=== PATIENT | male | born 1990 ===

== ENCOUNTER 2021-06-08 14:57 | Outpatient (REF) | payer OTHER, SELFPAY ==
[2021-06-08 16:11] LABS: Appearance Urine CLEAR; Color Urine YELLOW; Glucose Urine UA NEG (NEG); Leukocyte Esterase Urine NEG (NEG); Nitrite Urine NEG (NEG); Specific Gravity - Urine 1.015 (1.005-1.025); Urine Blood NEG (NEG); Urine Ketones NEG (NEG); Urine Protein NEG (NEG-TRACE)
== END 2021-06-08 14:58 | disposition home or self-care (01) ==
LOC: HO.LAB 14:57
PROVIDERS: Visit Provider Physician Assistant Medical
DX: F33.9 Major depressive disorder, recurrent, unspecified (principal)
CPT/HCPCS: 81003

== ENCOUNTER 2021-06-17 17:11 | Emergency (ER) | payer OTHER, SELFPAY ==
[2021-06-17 19:21] VITALS: BP 122/57; PULSE 68; RESP 16; TEMP 36.7; O2SAT 97; BMI 26.4
[2021-06-17 19:46] LABS: Appearance Urine CLEAR; Color Urine YELLOW; Glucose Urine UA NEG (NEG); Leukocyte Esterase Urine NEG (NEG); Nitrite Urine NEG (NEG); PH 6.5 (5.0-8.0); Specific Gravity - Urine 1.015 (1.005-1.025); Urine Blood NEG (NEG); Urine Ketones NEG (NEG); Urine Protein NEG (NEG-TRACE)
[2021-06-17 19:53] LABS: MANUAL DIFF FLAG NO
[2021-06-17 19:55] LABS: Imm Gran Abs Auto 0.04 X10*3/uL (0.00-0.03); Imm Gran Pct Auto 0.4 % (0.0-0.4); Mean Platelet Volume 9.7 fL (9.4-12.4); Red Cell Distribution Width 11.9 % (11.0-16.0)
[2021-06-17 19:58] LABS: Mucus Urine 1+ /LPF; RBC Urine 0 /HPF (0); Squamous Epithelial Cell Urine 1+ /LPF; WBC Urine 0 /HPF (0-4)
[2021-06-17 20:10] LABS: Estimated Glomerular Filt Rate > 60
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
--- NOTE | 2021-06-18 01:03 | MHC.CARE ---
Pt was evaluated by the CARE team. Pt krysten remain the night in the ED. Disposition is for an F/U due to the inability to gather pertinent crisis hx of pt. CARE team will follow up in the am.
--- NOTE | 2021-06-18 06:37 | PC.NURSE ---
Patient slept through the night, no distress observed/reported, behavior appropriate, medication rec completed/MAR active, patient got assessed by care team last, Disposition is F/U in the morning, patient is trans male to female, VSS, will continue to monitor.
[2021-06-18 09:32] VITALS: BP 125/71; PULSE 95; TEMP 36.8; O2SAT 97
[2021-06-18 09:36] VITALS: BP 125/71; PULSE 95
[2021-06-18] MEDS: Benztropine Mesylate 1 MG TABLET PO (09:36)
[2021-06-18] MEDS: Omeprazole 20 MG CAPSULE.DR PO (09:36)
[2021-06-18] MEDS: Spironolactone 25 MG TABLET 100 MG PO (09:36)
[2021-06-18] MEDS: Propranolol HCL 20 MG TABLET PO (09:36)
[2021-06-18] MEDS: estradioL 0.5 MG TABLET 2 MG PO (09:36)
[2021-06-18] MEDS: Gabapentin 400 MG CAPSULE 800 MG PO (09:37)
[2021-06-18] MEDS: Buprenorphine/Naloxone 8/2 mg FILM 1 FILM SUBLINGUAL (09:37)
[2021-06-18] MEDS: buPROPion HCl XL 150 MG TAB.ER.24H 450 MG PO (09:58)
[2021-08-25 11:08] LABS: COVID-19 Test Negative (Negative)
[2021-08-25 11:16] LABS: Barbiturates, Urine Not Detected (Not Detect); Opiate Screen Urine Not Detected (Not Detect)
[2021-08-25 11:17] LABS: Amphetamine Screen Urine Not Detected (Not Detect); Benzodiazepines Screen Urine Not Detected (Not Detect); Cannabinoid Screen Urine Not Detected (Not Detect); Cocaine Screen Urine Not Detected (Not Detect); Fentanyl, urine POSITIVE (Not Detect); Phencyclidine Screen Urine Not Detected (Not Detect)
[2021-08-25 11:20] LABS: Hematocrit 39.4 % (42-52); Red Blood Count 4.65 X10*6/uL (4.60-5.80)
[2021-08-25 11:24] LABS: White Blood Count 9.5 X10*3/uL (4.8-10.8)
[2021-08-25 11:25] LABS: Mean Corpuscular HGB Conc 35.5 g/dl (31.0-36.0); Mean Corpuscular Hemoglobin 30.1 pg (27.0-33.0); Mean Corpuscular Volume 84.7 fL (80-98); Neutrophils Percent Auto 61.8 % (45-73); Platelet Count 261 X10*3/uL (160-400)
[2021-08-25 11:26] LABS: Basophils Percent Auto 0.4 % (0-2); Eosinophils Percent Auto 7.7 % (0-4); Lymphocytes Percent Auto 21.5 % (20-40); Monocytes Percent Auto 8.2 % (2-11)
[2021-08-25 11:29] LABS: Neutrophils Absolute Auto 5.8 X10*3/uL (2.0-8.3)
[2021-08-25 11:30] LABS: Monocytes Absolute Auto 0.8 X10*3/uL (0.1-1.2)
[2021-08-25 11:31] LABS: Eosinophils Absolute Auto 0.7 X10*3/uL (0.0-0.4)
[2021-08-25 11:33] LABS: Sodium 138 mmol/L (135-145)
[2021-08-25 11:34] LABS: Potassium 4.6 mmol/L (3.3-5.1)
[2021-08-25 11:35] LABS: Chloride 105 mmol/L (96-108)
[2021-08-25 11:36] LABS: Anion Gap 11 (12-20); Carbon Dioxide 27 mmol/L (22-29)
[2021-08-25 11:37] LABS: Blood Urea Nitrogen 17 mg/dL (9-16)
[2021-08-25 11:39] LABS: Creatinine Clr Calc Pharmacy 115.2; Glucose Random 100 mg/dL (60-115)
[2021-08-25 11:40] LABS: Calcium 9.1 mg/dL (8.4-10.2)
[2021-08-25 11:41] LABS: Acetaminophen LAB < 1 mcg/mL (<30); Salicylate < 5.0 mg/dL (15-30)
[2021-08-25 12:13] LABS: Ethanol < 10 mg/dL
== END 2021-06-18 11:03 | disposition home or self-care (01) ==
PROVIDERS: Emergency Provider Internal Medicine
DX: F33.2 Major depressive disorder, recurrent severe without psychotic features (principal); Z79.899 Other long term (current) drug therapy; Z20.822 Contact with and (suspected) exposure to COVID-19
CPT/HCPCS: 36415; 80048; 80143; 80179; 80307; 81001; 82077; 85025; 87635; 99284; 99285

== ENCOUNTER 2022-07-06 09:01 | Outpatient (REF) | payer OTHER, SELFPAY ==
[2022-07-06 11:43] LABS: Hematocrit 42.6 % (42.0-52.0); Hemoglobin 14.8 g/dl (14.0-18.0); Mean Corpuscular HGB Conc 34.7 g/dl (31.0-36.0); Mean Corpuscular Hemoglobin 30.2 pg (27.0-33.0); Mean Corpuscular Volume 86.9 fL (80.0-98.0); Mean Platelet Volume 10.5 fL (9.4-12.4); Platelet Count 290 X10*3/uL (160-400); Red Cell Distribution Width 11.8 % (11.0-16.0); White Blood Count 9.9 X10*3/uL (4.8-10.8)
[2022-07-06 12:00] LABS: Alanine Aminotransferase 16 U/L (0-40); Albumin Level 4.3 g/dL (3.5-5.0); Alkaline Phosphatase 54 U/L (39-117); Anion Gap 15 (12-20); Aspartate Amino Transferase 21 U/L (5-37); Bilirubin Total 0.3 mg/dL (0.0-1.0); Blood Urea Nitrogen 13 mg/dL (9-16); Calcium 9.5 mg/dL (8.4-10.2); Carbon Dioxide 26 mmol/L (22-29); Chloride 103 mmol/L (96-108); Cholesterol 186 mg/dL; Estimated Glomerular Filt Rate > 60; Glucose Fasting 89 mg/dL (60-99); HDL Cholesterol 41 mg/dL; LDL Cholesterol Calculated 115 mg/dl; Phosphorus 2.6 mg/dL (2.7-4.5); Potassium 4.8 mmol/L (3.3-5.1); Sodium 139 mmol/L (135-145); Total Protein 7.4 g/dL (6.5-8.0); Triglycerides 154 mg/dL
[2022-07-06 12:23] LABS: TSH reflex Free T4 1.64 uIU/mL (0.32-4.0)
[2022-07-06 12:49] LABS: Folate > 20.0 ng/mL (> or = 4.0); Vitamin B12 1238 pg/mL (200-900)
== END 2022-07-06 09:02 | disposition home or self-care (01) ==
LOC: HO.WFDLDS 09:01
PROVIDERS: Visit Provider Hospitalist
DX: Z00.00 Encounter for general adult medical examination without abnormal findings (principal); K21.9 Gastro-esophageal reflux disease without esophagitis; D64.9 Anemia, unspecified
CPT/HCPCS: 36415; 80053; 80061; 82607; 82746; 83735; 84100; 84443; 85027

== ENCOUNTER 2022-12-11 05:48 | Emergency (ER) | payer OTHER, SELFPAY ==
--- NOTE | ~2022-12-11 | CT_ITS ---
EXAMINATION: CT HEAD WITHOUT CONTRAST CLINICAL INFORMATION: Headache. COMPARISON: None available. TECHNIQUE: Contiguous axial imaging was performed from the skull base to vertex without intravenous administration of contrast. This CT examination was performed using dose optimization techniques as appropriate, variously including the following: *Automated exposure control. *Adjustment of mA and/or kV according to patient size (this includes techniques or standardized protocols for targeted exams where dose is matched to indication/reason for exam; i.e. extremities or head). *Use of iterative reconstruction technique. DLP: 674 mGy-cm FINDINGS: There is no evidence of acute intracranial hemorrhage or edematous territorial infarction. [place]-white matter differentiation is preserved. There is no abnormal attenuation within the brain parenchyma. The ventricles are normal in morphology and size. No evidence for obstructive hydrocephalus. No abnormal mass effect or midline shift. No extra-axial fluid collections. No acute soft tissue or osseous abnormalities. Prominent opacification of the left frontal and maxillary sinuses as well as the left anterior ethmoid air cells. Mild mucosal thickening of the remaining paranasal sinuses. The mastoid air cells and middle ear cavities are clear. CT/CT head/brain wo IV con IMPRESSION: 1. No evidence of acute intracranial hemorrhage or edematous territorial infarction. 2. Prominent left-sided frontal and maxillary sinus disease.
[2022-12-11 05:54] VITALS: BP 133/60; PULSE 85; RESP 16; TEMP 36.4; O2SAT 94; BMI 27.3
[2022-12-11 07:09] VITALS: BP 102/58; PULSE 85; RESP 18; TEMP 36.4; O2SAT 95
--- NOTE | 2022-12-11 07:21 | ED_ITS ---
HPI - General Adult General Chief complaint: General Medical Stated complaint: Face Numbness/Confusion Time Seen by Provider: 12/11/22 07:21 Source: patient Mode of arrival: ambulatory Limitations: no limitations History of Present Illness HPI narrative: This is a 32 years old reason patient with history of major depression , anxiety, transitioning male to female, presented to emergency room complaining of headache, bilateral financial numbness. Symptoms been ongoing for month Onset (ago): month(s) (1) Location: head Radiation: non-radiation Severity: moderate Quality: burning Pain Consistency: constant Relieving factors: none Associated symptoms: confusion Related Data Home Medications Medication Instructions Recorded Confirmed benztropine 1 mg tablet 1 tab PO BID 06/17/21 07/13/22 buprenorphine 4 mg-naloxone 1 mg 1 strip sublingual DAILY@1300 06/17/21 07/13/22 sublingual film (Suboxone) buprenorphine 8 mg-naloxone 2 mg 1 strip sublingual QAM 06/17/21 07/13/22 sublingual film (Suboxone) bupropion HCl 150 mg 24 hr tablet, 450 mg PO QAM 06/17/21 07/13/22 extended release clonazepam 1 mg tablet 1 mg PO DAILY PRN Anxiety 06/17/21 07/13/22 fluoxetine 40 mg capsule 60 mg PO QAM 06/17/21 07/13/22 haloperidol 5 mg tablet 1 tab PO TID PRN Agitation 06/17/21 07/13/22 loratadine 10 mg tablet 1 tab PO QAM 06/17/21 07/13/22 multivitamin with folic acid 400 1 tab PO QAM 06/17/21 07/13/22 mcg tablet (Tab-A-Josef) prazosin 5 mg capsule 2 cap PO BEDTIME 06/17/21 07/13/22 propranolol 20 mg tablet 1 tab PO BID 06/17/21 07/13/22 trazodone 100 mg tablet 2 tab PO BEDTIME PRN Insomnia 06/17/21 07/13/22 buprenorphine 2 mg-naloxone 0.5 mg 2 mg sublingual DAILY 07/13/22 07/13/22 sublingual film (Suboxone) docusate sodium 100 mg capsule 100 mg PO BID PRN constipation 07/13/22 07/13/22 melatonin 3 mg tablet 6 mg PO BEDTIME PRN insomnia 07/13/22 07/13/22 Previous Rx's Medication Instructions Recorded sodium chloride 0.65 % nasal spray 2 spray intranasal Q2H PRN dry 07/20/21 aerosol (Farley Saline) nasal passages 1 month #60 mL estradiol 2 mg tablet 2 mg PO TID #90 tabs 11/17/21 fluticasone propionate 50 2 spray intranasal DAILY #16 grams 11/30/21 mcg/actuation nasal spray,suspension omeprazole 20 mg capsule,delayed 20 mg PO DAILY #90 caps 02/15/22 release spironolactone 100 mg tablet 100 mg PO BID #60 tabs 04/28/22 amoxicillin 500 mg-potassium 1 tab PO Q12H #14 tabs 07/13/22 clavulanate 125 mg tablet (Augmentin) Allergies Allergy/AdvReac Type Severity Reaction Status Date / Time No Known Allergies Allergy Verified 07/13/22 10:05 Review of Systems ENT: Reports system reviewed and no additional complaints, except as doc umented Cardiovascular: Cardiovascular: Reports no additional cardiovascular complaints Gastrointestinal: Gastrointestinal: Reports no additional gastrointestinal complaints Psychiatric: Psychiatric: Reports anxiety [facility] Past Medical History [facility] Narrative: Depression/anxiety/ Surgical History H/O breast augmentation Social History Social History Housing: House Alcohol intake: current Alcohol intake frequency: holidays/special occasions only Patient Tobacco Use Status: Former Tobacco user Smoked in Last 30 Days: Yes e-Cigarette/Vaping Use: Never Used Second Hand Smoke Exposure: No Use of substances other than those prescribed or required for medical reasons: No Advance Directives: No Advance Directives Information Provided: No service: No Current occupational status: disabled Cognitive needs: No Hearing needs: No Vision needs: No Physical Exam ED Vital Signs: Vital Signs - 24 hr 12/11/22 05:54 12/11/22 07:09 12/11/22 08:22 Temperature 97.5 F 97.6 F 97.6 F Pulse Rate 85 85 71 Respiratory Rate 16 18 17 Blood Pressure 133/60 102/58 L 97/61 Pulse Oximetry 94 95 95 Oxygen Delivery Method Room Air Room Air Room Air 12/11/22 09:52 Temperature 97.6 F Pulse Rate 76 Respiratory Rate 18 Blood Pressure 105/56 L Pulse Oximetry 96 Oxygen Delivery Method Room Air BMI result Body Mass Index 27.3 Const General: cooperative Nutritional Appearance: well nourished Orientation/consciousness: patient oriented x3 Limitations: no limitations HENMT Head: Yes normal to inspection General nose exam: Normal external nose present Face and sinus: Yes normal facial exam Mouth: Normal oral and palatal mucosa present Teeth and gingiva: dentition normal Throat: Yes posterior oropharynx normal Neck Neck: Yes normal visual inspection, Yes full ROM and Yes no lymphadenopathy Chest Chest palpation & inspection: normal inspection of the chest Resp Effort & Inspection: normal respiratory effort and able to speak in complete sentences Auscultation: clear to auscultation bilaterally Cardio Jugular venous distension: no JVD Rate: regular rate Rhythm: regular rhythm GI Inspection: Yes normal to inspection Palpation (GI): Soft to palpation, not firm and nontender Auscultation: normal bowel sounds Skin General skin exam: no rashes or lesions noted, elasticity normal and turgor normal Lesions: no lesions Rashes: no rashes Neuro General: patient oriented x3 Cranial nerves: Yes CN's II-XII intact bilaterally Cognition (Neuro): normal cognition Medical Decision Making Medical Decision Making [facility] Narrative: 32 years old transgender male to female presented with headache facial numbness the picture is more consistent with anxiety the numbness is billateral will get any way I head CT and EKG and reassess Differential Diagnosis Differential Diagnoses: The differential diagnosis associated with the presentation includes Anxiety disorder/depression/CVA unlikely Lab Data [facility] Lab Attestation statement: I reviewed the patient's lab results. 12/11/22 07:42 12/11/22 07:42 Labs: Lab Results 12/11/22 12/11/22 Range/Units 07:42 07:42 WBC 6.4 (4.8-10.8) X10*3/uL RBC 4.07 L (4.60-5.80) X10*6/uL Hgb 12.0 L (14.0-18.0) g/dl Hct 34.5 L (42.0-52.0) % MCV 84.8 (80.0-98.0) fL MCH 29.5 (27.0-33.0) pg MCHC 34.8 (31.0-36.0) g/dl RDW 11.9 (11.0-16.0) % Plt Count 271 (160-400) X10*3/uL MPV 9.4 (9.4-12.4) fL Immature Gran % (Auto) 0.2 (0.0-0.4) % Neut % (Auto) 63.2 (45-73) % Lymph % (Auto) 23.2 (20-40) % [place] % (Auto) 9.8 (2-11) % Eos % (Auto) 3.3 (0-4) % Baso % (Auto) 0.3 (0-2) % Lymph # (Auto) 1.5 (1.2-4.9) X10*3/uL [place] # (Auto) 0.6 (0.1-1.2) X10*3/uL Eos # (Auto) 0.2 (0.0-0.4) X10*3/uL Baso # (Auto) 0.0 (0.0-0.2) X10*3/uL Abs Immat Gran (auto) 0.01 (0.00-0.03) X10*3/uL Absolute Neuts (auto) 4.1 (2.0-8.3) x10*3/uL Absolute Nucleated RBC 0.000 (0.0-0.012) X10*3/uL Nucleated RBC % (auto) 0.0 (0.0-0.2) /100WBC Sodium 141 (135-145) mmol/L Potassium 4.1 (3.3-5.1) mmol/L Chloride 107 (96-108) mmol/L Carbon Dioxide 28 (22-29) mmol/L Anion Gap 10 L (12-20) BUN 14 (9-16) mg/dL Creatinine 0.81 (0.5-1.4) mg/dL Estim Creat Clear Calc 145.2 Estimated GFR > 60 Random Glucose 117 H (60-115) mg/dL Calcium 8.9 D (8.4-10.2) mg/dL Total Bilirubin 0.4 (0.0-1.0) mg/dL AST 22 (5-37) U/L ALT 27 (0-40) U/L Alkaline Phosphatase 44 (39-117) U/L Total Protein 6.0 L (6.5-8.0) g/dL Albumin 3.6 (3.5-5.0) g/dL Independent Interpretation I performed an independent interpretation of an: EKG Interpretation: NSR 74 no ischemic changes Radiology Impression Discussion of test interpretation with radiology: I have reviewed the radiologist's reading. Radiologist Impression: s or head). *Use of iterative reconstruction technique. DLP: 674 mGy-cm FINDINGS: There is no evidence of acute intracranial hemorrhage or edematous territorial infarction. [place]-white matter differentiation is preserved. There is no abnormal attenuation within the brain parenchyma. The ventricles are normal in morphology and size. No evidence for obstructive hydrocephalus. No abnormal mass effect or midline shift. No extra-axial fluid collections. No acute soft tissue or osseous abnormalities. Prominent opacification of the left frontal and maxillary sinuses as well as the left anterior ethmoid air cells. Mild mucosal thickening of the remaining paranasal sinuses. The mastoid air cells and middle ear cavities are clear. ? CT/CT head/brain wo IV con IMPRESSION: 1.? No evidence of acute intracranial hemorrhage or edematous territorial infarction. 2.? Prominent left-sided frontal and maxillary sinus disease. ? Dictated By: Shemar Zarate DO Signed By: <Electronically signed by Shemar Zarate DO in OV> 12/11/22 1047 Discharge Plan Discharge Clinical Impression: Paresthesia Patient Disposition: Home, Self-Care Instructions: Paresthesia (ED) Additional Instructions: followu up with Your Primary Care Doctor return if worse Prescriptions: No Action estradiol 2 mg tablet 2 mg PO TID Qty: 90 8RF fluticasone propionate 50 mcg/actuation spray,suspension 2 spray intranasal DAILY Qty: 16 8RF omeprazole 20 mg capsule,delayed release(DR/EC) 20 mg PO DAILY Qty: 90 3RF spironolactone 100 mg tablet 100 mg PO BID Qty: 60 4RF haloperidol 5 mg tablet 1 tab PO TID PRN (Reason: Agitation) clonazepam 1 mg tablet 1 mg PO DAILY PRN (Reason: Anxiety) prazosin 5 mg capsule 2 cap PO BEDTIME benztropine 1 mg tablet 1 tab PO BID propranolol 20 mg tablet 1 tab PO BID loratadine 10 mg tablet 1 tab PO QAM multivitamin with folic acid [Tab-A-Josef] 400 mcg tablet 1 tab PO QAM buprenorphine-naloxone [Suboxone] 8-2 mg film 1 strip sublingual QAM buprenorphine-naloxone [Suboxone] 4-1 mg film 1 strip sublingual DAILY@1300 trazodone 100 mg tablet 2 tab PO BEDTIME PRN (Reason: Insomnia) bupropion HCl 150 mg tablet extended release 24 hr 450 mg PO QAM fluoxetine 40 mg capsule 60 mg PO QAM sodium chloride [Farley Saline] 0.65 % aerosol,spray 2 spray intranasal Q2H PRN (Reason: dry nasal passages) 30 Days Qty: 60 5RF docusate sodium 100 mg capsule 100 mg PO BID PRN (Reason: constipation) melatonin 3 mg tablet 6 mg PO BEDTIME PRN (Reason: insomnia) buprenorphine-naloxone [Suboxone] 2-0.5 mg film 2 mg sublingual DAILY amoxicillin-pot clavulanate [Augmentin] 500-125 mg tablet 1 tab PO Q12H Qty: 14 0RF Rx Instructions: take with food or milk and drink plenty of water Referrals: Physician,Unknown J [Primary Care Provider] - 3 days
--- NOTE | 2022-12-11 07:27 | ECG_ITS ---
Test Reason : chest pain Blood Pressure : / mmHG Vent. Rate : 074 BPM Atrial Rate : 074 BPM P-R Int : 174 ms QRS Dur : 086 ms QT Int : 416 ms P-R-T Axes : 052 070 041 degrees QTc Int : 461 ms Normal sinus rhythm Normal ECG No previous ECGs available Referred By: Albin Love Electronically Signed By:TRUNG PALMER
[2022-12-11 07:46] LABS: MANUAL DIFF FLAG NO
[2022-12-11 07:48] LABS: Basophils Percent Auto 0.3 % (0-2); Eosinophils Absolute Auto 0.2 X10*3/uL (0.0-0.4); Eosinophils Percent Auto 3.3 % (0-4); Hematocrit 34.5 % (42.0-52.0); Imm Gran Abs Auto 0.01 X10*3/uL (0.00-0.03); Imm Gran Pct Auto 0.2 % (0.0-0.4); Lymphocytes Absolute Auto 1.5 X10*3/uL (1.2-4.9); Lymphocytes Percent Auto 23.2 % (20-40); Mean Corpuscular HGB Conc 34.8 g/dl (31.0-36.0); Mean Corpuscular Hemoglobin 29.5 pg (27.0-33.0); Mean Corpuscular Volume 84.8 fL (80.0-98.0); Mean Platelet Volume 9.4 fL (9.4-12.4); Monocytes Absolute Auto 0.6 X10*3/uL (0.1-1.2); Monocytes Percent Auto 9.8 % (2-11); Neutrophils Absolute Auto 4.1 x10*3/uL (2.0-8.3); Neutrophils Percent Auto 63.2 % (45-73); Platelet Count 271 X10*3/uL (160-400); Red Blood Count 4.07 X10*6/uL (4.60-5.80); Red Cell Distribution Width 11.9 % (11.0-16.0); White Blood Count 6.4 X10*3/uL (4.8-10.8)
[2022-12-11 08:10] LABS: Alanine Aminotransferase 27 U/L (0-40); Albumin Level 3.6 g/dL (3.5-5.0); Alkaline Phosphatase 44 U/L (39-117); Anion Gap 10 (12-20); Aspartate Amino Transferase 22 U/L (5-37); Bilirubin Total 0.4 mg/dL (0.0-1.0); Blood Urea Nitrogen 14 mg/dL (9-16); Calcium 8.9 mg/dL (8.4-10.2); Carbon Dioxide 28 mmol/L (22-29); Chloride 107 mmol/L (96-108); Creatinine Clr Calc Pharmacy 145.2; Estimated Glomerular Filt Rate > 60; Glucose Random 117 mg/dL (60-115); Potassium 4.1 mmol/L (3.3-5.1); Sodium 141 mmol/L (135-145)
[2022-12-11 08:22] VITALS: BP 97/61; PULSE 71; RESP 17; TEMP 36.4; O2SAT 95
[2022-12-11 09:52] VITALS: BP 105/56; PULSE 76; RESP 18; TEMP 36.4; O2SAT 96
== END 2022-12-11 11:25 | disposition home or self-care (01) ==
PROVIDERS: Emergency Provider Emergency Medicine
DX: R20.2 Paresthesia of skin (principal); R20.0 Anesthesia of skin; F32.9 Major depressive disorder, single episode, unspecified; F41.9 Anxiety disorder, unspecified; F64.0 Transsexualism; F11.20 Opioid dependence, uncomplicated; Z79.899 Other long term (current) drug therapy
CPT/HCPCS: 36415; 70450; 80053; 85025; 93005; 99284; 99285

== ENCOUNTER 2022-12-17 17:11 | Inpatient (IN) | payer OTHER, SELFPAY ==
--- NOTE | ~2022-12-17 | XR_ITS ---
EXAMINATION: XR CHEST CLINICAL INFORMATION: Chest pain. COMPARISON: None available. TECHNIQUE: 2 views of the chest were obtained. FINDINGS: No significant abnormality is noted involving the heart, lungs, mediastinum, bony thorax or soft tissues. XR/XR chest 2V IMPRESSION: Unremarkable examination.
--- NOTE | 2022-12-17 17:12 | ECG_ITS ---
Test Reason : CHEST PAIN Blood Pressure : / mmHG Vent. Rate : 071 BPM Atrial Rate : 071 BPM P-R Int : 152 ms QRS Dur : 088 ms QT Int : 386 ms P-R-T Axes : 056 078 045 degrees QTc Int : 419 ms Normal sinus rhythm with sinus arrhythmia Normal ECG When compared with ECG of 11-DEC-2022 07:46, No significant change was found Referred By: Lesley Crump Electronically Signed By:Joe Dumont
[2022-12-17 17:22] VITALS: BP 119/71; BP 121/80; PULSE 81; PULSE 86; RESP 18; TEMP 36.8; O2SAT 96; O2SAT 98; BMI 25.9
[2022-12-17 18:01] VITALS: PULSE 82
--- NOTE | 2022-12-17 18:05 | ED_ITS ---
HPI - Chest Pain General Chief Complaint: Chest Pain <KYAW Moreno Last Filed: 12/17/22 21:00> Stated Complaint: chest pain <KYAW Moreno Last Filed: 12/17/22 21:00> Time Seen by Provider: 12/17/22 18:05 <KYAW Moreno Last Filed: 12/17/22 21:00> Source: patient and EMS <KYAW Moreno Last Filed: 12/17/22 21:00> Mode of arrival: EMS <KYAW Moreno Last Filed: 12/17/22 21:00> Limitations: no limitations <KYAW Moreno Last Filed: 12/17/22 21:00> History of Present Illness HPI narrative: Patient is a 32 year old assigned male at , now female, with a history of anxiety and MDD presenting to the emergency department today with chest pain. Patient states that earlier today, she had an episode of central chest pain that lasted for 30-40 minutes and is now resolved. Patient denies any dizziness, lightheadedness, abdominal pain, nausea, vomiting, fever, chills, blurry vision, double vision, loss of vision, chest pain, difficulty breathing, shortness of breath, back pain, night sweats, pain with urination, increased urinary frequency, increased urinary urgency, blood in her urine or stool, synco pe or a near syncopal episode, recent trauma or falls, bowel incontinence, bladder incontinence, bowel retention, bladder retention, or any other complaints at this time. <KYAW Moreno Last Filed: 12/17/22 21:00> MD complaint: chest pain <KYAW Moreno Last Filed: 12/17/22 21:00> Pain radiation: none <KYAW Moreno Last Filed: 12/17/22 21:00> Related Data Home Medications: Home Medications Medication Instructions Recorded Confirmed buprenorphine 2 mg-naloxone 0.5 mg 2 mg sublingual DAILY 12/17/22 12/17/22 sublingual film (Suboxone) buprenorphine 8 mg-naloxone 2 mg 1 film sublingual DAILY 12/17/22 12/17/22 sublingual film (Suboxone) bupropion HCl 150 mg 24 hr tablet, 150 mg PO QAM 12/17/22 12/17/22 extended release bupropion HCl 300 mg 24 hr tablet, 300 mg PO QAM 12/17/22 12/17/22 extended release clonazepam 1 mg tablet 1 mg PO BID PRN Anxiety 12/17/22 12/17/22 estradiol 2 mg tablet 2 mg PO TID 12/17/22 12/17/22 fluoxetine 40 mg capsule 80 mg PO DAILY 12/17/22 12/17/22 hydroxyzine pamoate 50 mg capsule 50 mg PO QID PRN anxiety 12/17/22 12/17/22 melatonin 3 mg tablet 6 mg PO BEDTIME 12/17/22 12/17/22 multivitamin with folic acid 400 1 tab PO DAILY 12/17/22 12/17/22 mcg tablet (Tab-A-Josef) nicotine (polacrilex) 4 mg gum 4 mg PO Q2H PRN Nicotine Cravings 12/17/22 12/17/22 omeprazole 20 mg capsule,delayed 20 mg PO QAM 12/17/22 12/17/22 release prazosin 5 mg capsule 10 mg PO BEDTIME 12/17/22 12/17/22 spironolactone 100 mg tablet 100 mg PO BID 12/17/22 12/17/22 trazodone 100 mg tablet 200 mg PO BEDTIME PRN insomnia 12/17/22 12/17/22 <KYAW Moreno - Last Filed: 12/17/22 21:00> Allergies/Adverse Reactions: Allergies Allergy/AdvReac Type Severity Reaction Status Date / Time No Known Allergies Allergy Verified 07/13/22 10:05 <KYAW Moreno Last Filed: 12/17/22 21:00> Review of Systems Constitutional: Constitutional: Reports no additional constitutional complaints, Denies chills, Denies fever(s) and Denies night sweats <KYAW Moreno Last Filed: 12/17/22 21:00> Eyes: Eyes: Reports no additional eye complaints, Denies blurry vision, Denies change in vision, Denies diplopia, Denies eye discharge, Denies loss of vision and Denies eye pain <KYAW Moreno Last Filed: 12/17/22 21:00> ENT: Denies dizziness <KYAW Moreno Last Filed: 12/17/22 21:00> Cardiovascular: Cardiovascular: Reports no additional cardiovascular complaints, Reports chest pain (now resolved), Denies lightheadedness, Denies Loss of Consciousness and Denies dyspnea <KYAW Moreno - Last Filed: 12/17/22 21:00> Respiratory: Respiratory: Reports no additional respiratory complaints and Denies dyspnea <KYAW Moreno - Last Filed: 12/17/22 21:00> Gastrointestinal: Gastrointestinal: Reports no additional gastrointestinal complaints, Denies abdominal pain, Denies melena, Denies hematochezia, Denies change in bowel habits and Denies change in stool character <KYAW Nelson - Last Filed: 12/17/22 21:00> Genitourinary: Genitourinary: Reports no additional male genitourinary complaints, Denies hematuria, Denies oliguria, Denies difficulty urinating, Denies dysuria, Denies urinary frequency, Denies urinary hesitancy, Denies urinary incontinence and Denies urinary urgency <KYAW Moreno - Last Filed: 12/17/22 21:00> Musculoskeletal: Musculoskeletal: Reports no additional musculoskeletal complaints, Denies numbness and Denies tingling <KYAW Moreno - Last Filed: 12/17/22 21:00> Neurologic: Denies dizziness, Denies loss of vision, Denies numbness and Denies tingling <KYAW Moreno - Last Filed: 12/17/22 21:00> Psychiatric: Psychiatric: Reports no additional psychiatric complaints <KYAW Moreno Last Filed: 12/17/22 21:00> Endocrine: Endocrine: Reports no additional endocrine complaints <KYAW Moreno - Last Filed: 12/17/22 21:00> Hematologic/Lymphatic: Hematologic/Lymphatic: Reports no additional hematologic/lymphatic complaints <KYAW Moreno - Last Filed: 12/17/22 21:00> Allergic/Immunologic: Allergic/Immunologic: Reports no additional allergic/immunologic complaints <KYAW Moreno - Last Filed: 12/17/22 21:00> PMFSH Past Medical History Attestation statement: The following information was validated with the patient. <KYAW Morejon - Last Filed: 12/17/22 21:00> Source: old records reviewed and nursing notes reviewed <KYAW Moreno - Last Filed: 12/17/22 21:00> Surgical History: Surgical History H/O breast augmentation <KYAW Moreno - Last Filed: 12/17/22 21:00> Social History Social History: Social History Housing: House Alcohol intake: never Patient Tobacco Use Status: Former Tobacco user Smoked in Last 30 Days: No e-Cigarette/Vaping Use: Never Used Second Hand Smoke Exposure: No Use of substances other than those prescribed or required for medical reasons: No Advance Directives: No Advance Directives Information Provided: No Healthcare Proxy: No Guardian: No service: No Current occupational status: disabled Cognitive needs: No Hearing needs: No Vision needs: No <KYAW Moreno - Last Filed: 12/17/22 21:00> Physical Exam Vital Signs: Vital Signs: Last Vital Signs Temp 98.0 F 12/18/22 06:36 Pulse 63 12/18/22 06:36 Resp 12/18/22 06:36 BP 113/79 12/17/22 21:18 Pulse Ox 97 12/18/22 06:36 O2 Del Method Room Air 12/18/22 06:36 BMI result Body Mass Index 25.9 <KYAW Moreno - Last Filed: 12/17/22 21:00> Vital Signs: Last Vital Signs Temp 98.0 F 12/18/22 06:36 Pulse 63 12/18/22 06:36 Resp 12/18/22 06:36 BP 113/79 12/17/22 21:18 Pulse Ox 97 12/18/22 06:36 O2 Del Method Room Air 12/18/22 06:36 BMI result Body Mass Index 25.9 <Jung Young - Last Filed: 12/17/22 19:58> Vital Signs: Last Vital Signs Temp 98.0 F 12/18/22 06:36 Pulse 63 12/18/22 06:36 Resp 16 12/18/22 06:36 BP 113/79 12/17/22 21:18 Pulse Ox 97 12/18/22 06:36 O2 Del Method Room Air 12/18/22 06:36 BMI result Body Mass Index 25.9 <Nomi Rojas MD - Last Filed: 12/18/22 07:50> Const: General: cooperative, no acute distress, alert and awake <KYAW Moreno - Last Filed: 12/17/22 21:00> Nutritional Appearance: well nourished <KYAW Moreno - Last Filed: 12/17/22 21:00> Orientation/consciousness: patient oriented x3 <KYAW Moreno - Last Filed: 12/17/22 21:00> Limitations: no limitations <KYAW Moreno - Last Filed: 12/17/22 21:00> HEENT: Head: Yes normal to inspection and Yes atraumatic <KYAW Moreno - Last Filed: 12/17/22 21:00> Ears: hearing grossly normal bilaterally and external ears normal <KYAW Moreno - Last Filed: 12/17/22 21:00> General nose exam: Normal external nose present, no nasal discharge noted and no epistaxis <KYAW Moreno - Last Filed: 12/17/22 21:00> Face and sinus: Yes normal facial exam, No abrasion and No laceration <KYAW Moreno - Last Filed: 12/17/22 21:00> Mouth: Normal oral and palatal mucosa present, no drooling and no muffled voice <KYAW Moreno - Last Filed: 12/17/22 21:00> Eyes: General: appearance normal, both eyes and all related structures <KYAW Moreno - Last Filed: 12/17/22 21:00> Periorbital: periorbital findings normal <KYAW Moreno - Last Filed: 12/17/22 21:00> Eyelids: Yes eyelids normal <KYAW Moreno - Last Filed: 12/17/22 21:00> Conjunctivae: conjunctivae normal <KYAW Moreno - Last Filed: 12/17/22 21:00> Pupils: Equal, round and reactive pupils present <KYAW Moreno - Last Filed: 12/17/22 21:00> EOM: EOMs intact bilaterally <KYAW Moreno - Last Filed: 12/17/22 21:00> Neck: Neck: Yes normal visual inspection, Yes full ROM and Yes no lymphadenopathy <Lesley PeñaKYAW tay - Last Filed: 12/17/22 21:00> Chest: Chest palpation & inspection: normal inspection of the chest <Lesley PeñaKYAW tay - Last Filed: 12/17/22 21:00> Resp: Effort & Inspection: normal respiratory effort and able to speak in complete sentences <Lesley KYAW Crump - Last Filed: 12/17/22 21:00> GI: Inspection: Yes normal to inspection <Lesley PeñaKYAW tay - Last Filed: 12/17/22 21:00> Neuro: General: patient oriented x3 and moves all extremities <Lesley KYAW Crump - Last Filed: 12/17/22 21:00> Cranial nerves: Yes Equal, round and reactive pupils present <Lesley PeñaKYAW tay - Last Filed: 12/17/22 21:00> Cognition (Neuro): normal cognition <Lesleybrad PeñaKYAW tay - Last Filed: 12/17/22 21:00> Motor exam (neuro): 5/5 motor strength present throughout <Lesley Peñajasvir PA - Last Filed: 12/17/22 21:00> Sensory Exam: Normal double simultaneous stimulation for sensation <Lesleybrad PeñaKYAW tay - Last Filed: 12/17/22 21:00> Coordination: [id number] test normal <Lesley Peñajasvir GA - Last Filed: 12/17/22 21:00> Extrem: General: Yes normal to inspection, Yes full ROM and Yes capillary refill normal <Lesley KYAW Crump - Last Filed: 12/17/22 21:00> Psych: Appearance: grossly normal <Lesley KYAW Crump - Last Filed: 12/17/22 21:00> Mental Status: mental status grossly normal <KYAW Moreno - Last Filed: 12/17/22 21:00> Affect: normal affect <Lesley KYAW Crump - Last Filed: 12/17/22 21:00> Attitude: cooperative <KAYW Moreno - Last Filed: 12/17/22 21:00> Thought process: Normal thought process present <KYAW Moreno - Last Filed: 12/17/22 21:00> Thought content: Normal thought content present <KYAW Moreno - Last Filed: 12/17/22 21:00> Insight: Good insight present (Psych) <KYAW Moreno - Last Filed: 12/17/22 21:00> Course Reevaluation(s) Reevaluation #1: Patient was initially seen for chest pressure. She reported to nursing staff that she was going to ?hang myself in the bathroom. ? I discussed with occasions primary provider, Jena, the patient moved to the [facility] and will require a care team evaluation. A drug screen was ordered <Jung Young - Last Filed: 12/17/22 19:58> Time: 19:57 <Jung Young - Last Filed: 12/17/22 19:58> Reevaluation #2: Continue with physician observation, no events overnight reported by the nurse, stable vital signs, bed search is underway by care team. <Nomi Rojas MD - Last Filed: 12/18/22 07:50> Time: 07:50 <Nomi Rojas MD - Last Filed: 12/18/22 07:50> Medications Administered Generic Name Dose Route Start Last Admin Trade Name Freq PRN Reason Stop Dose Admin Clonazepam 1 mg 12/17/22 20:51 12/17/22 21:16 Clonazepam 1 Mg Tablet PO 1 mg BID PRN Administration Anxiety Estradiol 2 mg 12/17/22 21:00 12/17/22 21:16 Estradiol 0.5 Mg Tablet PO 2 mg TID AGATHA Administration Melatonin 6 mg 12/17/22 21:00 12/17/22 21:16 Melatonin 3 Mg Tablet PO 6 mg BEDTIME AGATHA Administration Nicotine Polacrilex 4 mg 12/17/22 20:51 12/17/22 21:17 Nicotine Polacrilex 2 Mg Gum BUCCAL 4 mg Q2H PRN Administration Nicotine Cravings Omeprazole 20 mg 12/18/22 06:30 12/18/22 06:24 Omeprazole 20 Mg Capsule. PO 20 mg DAILY@0630 AGATHA Administration Prazosin HCl 10 mg 12/17/22 21:00 12/17/22 21:17 Prazosin Hcl 5 Mg Capsule PO 10 mg BEDTIME AGATHA Administration Protocol Trazodone HCl 200 mg 12/17/22 20:51 12/17/22 21:16 Trazodone Hcl 100 Mg Tablet PO 200 mg BEDTIME PRN Administration insomnia Discontinued Medications Generic Name Dose Route Start Last Admin Trade Name Freq PRN Reason Stop Dose Admin Sodium Chloride 1,000 mls @ 999 mls/hr 12/17/22 18:15 12/17/22 20:26 Ns IV 12/17/22 19:15 Infused .Q1H1M AGATHA Infusion <KYAW Moreno - Last Filed: 12/17/22 21:00> Medications Administered Generic Name Dose Route Start Last Admin Trade Name Freq PRN Reason Stop Dose Admin Clonazepam 1 mg 12/17/22 20:51 12/17/22 21:16 Clonazepam 1 Mg Tablet PO 1 mg BID PRN Administration Anxiety Estradiol 2 mg 12/17/22 21:00 12/17/22 21:16 Estradiol 0.5 Mg Tablet PO 2 mg TID AGATHA Administration Melatonin 6 mg 12/17/22 21:00 12/17/22 21:16 Melatonin 3 Mg Tablet PO 6 mg BEDTIME AGATHA Administration Nicotine Polacrilex 4 mg 12/17/22 20:51 12/17/22 21:17 Nicotine Polacrilex 2 Mg Gum BUCCAL 4 mg Q2H PRN Administration Nicotine Cravings Omeprazole 20 mg 12/18/22 06:30 12/18/22 06:24 Omeprazole 20 Mg Capsule.Dr PO 20 mg DAILY@0630 AGATHA Administration Prazosin HCl 10 mg 12/17/22 21:00 12/17/22 21:17 Prazosin Hcl 5 Mg Capsule PO 10 mg BEDTIME AGATHA Administration Protocol Trazodone HCl 200 mg 12/17/22 20:51 12/17/22 21:16 Trazodone Hcl 100 Mg Tablet PO 200 mg BEDTIME PRN Administration insomnia Discontinued Medications Generic Name Dose Route Start Last Admin Trade Name Freq PRN Reason Stop Dose Admin Sodium Chloride 1,000 mls @ 999 mls/hr 12/17/22 18:15 12/17/22 20:26 Ns IV 12/17/22 19:15 Infused .Q1H1M AGATHA Infusion <Jung Young - Last Filed: 12/17/22 19:58> Medications Administered Generic Name Dose Route Start Last Admin Trade Name Freq PRN Reason Stop Dose Admin Clonazepam 1 mg 12/17/22 20:51 12/17/22 21:16 Clonazepam 1 Mg Tablet PO 1 mg BID PRN Administration Anxiety Estradiol 2 mg 12/17/22 21:00 12/17/22 21:16 Estradiol 0.5 Mg Tablet PO 2 mg TID AGATHA Administration Melatonin 6 mg 12/17/22 21:00 12/17/22 21:16 Melatonin 3 Mg Tablet PO 6 mg BEDTIME AGATHA Administration Nicotine Polacrilex 4 mg 12/17/22 20:51 12/17/22 21:17 Nicotine Polacrilex 2 Mg Gum BUCCAL 4 mg Q2H PRN Administration Nicotine Cravings Omeprazole 20 mg 12/18/22 06:30 12/18/22 06:24 Omeprazole 20 Mg Capsule.Dr PO 20 mg DAILY@0630 AGATHA Administration Prazosin HCl 10 mg 12/17/22 21:00 12/17/22 21:17 Prazosin Hcl 5 Mg Capsule PO 10 mg BEDTIME AGATHA Administration Protocol Trazodone HCl 200 mg 12/17/22 20:51 12/17/22 21:16 Trazodone Hcl 100 Mg Tablet PO 200 mg BEDTIME PRN Administration insomnia Discontinued Medications Generic Name Dose Route Start Last Admin Trade Name Freq PRN Reason Stop Dose Admin Sodium Chloride 1,000 mls @ 999 mls/hr 12/17/22 18:15 12/17/22 20:26 Ns IV 12/17/22 19:15 Infused .Q1H1M AGATHA Infusion <Nomi Rojas MD - Last Filed: 12/18/22 07:50> Medical Decision Making Medical Decision Making MDM Narrative: Patient is a 32 year old assigned male at , now female, with a history of anxiety and depression presenting to the emergency department today with resolved chest pain. Patient's physical exam was unremarkable. Patient's blood work was unremarkable. Patient's EKG was unremarkable. Patient's chest x- ray showed no acute process. I explained my physical exam findings as well as all test results to the patient. I answered all questions asked by the patient. Patient was in the restroom and made a statement that she was going to hang herself. Patient has now been moved over to the POD to be evaluated by the CARE team. <KYAW Moreno - Last Filed: 12/17/22 21:00> Differential Diagnosis Differential Diagnoses: The differential diagnosis associated with the presentation includes <KYAW Moreno - Last Filed: 12/17/22 21:00> chest pain, suicidal <KYAW Moreno - Last Filed: 12/17/22 21:00> Lab Data MDM Lab Attestation statement: I reviewed the patient's lab results. <KYAW Moreno - Last Filed: 12/17/22 21:00> Result Diagrams: 12/17/22 18:08 12/17/22 18:08 <KYAW Moreno - Last Filed: 12/17/22 21:00> Labs: Lab Results 12/17/22 12/17/22 12/17/22 Range/Units 18:08 18:08 18:08 WBC 11.1 H (4.8-10.8) X10*3/uL RBC 4.44 L (4.60-5.80) X10*6/uL Hgb 13.0 L (14.0-18.0) g/dl Hct 37.4 L (42.0-52.0) % MCV 84.2 (80.0-98.0) fL MCH 29.3 (27.0-33.0) pg MCHC 34.8 (31.0-36.0) g/dl RDW 11.9 (11.0-16.0) % Plt Count 297 (160-400) X10*3/uL MPV 9.7 (9.4-12.4) fL Immature Gran % (Auto) 0.4 (0.0-0.4) % Neut % (Auto) 76.9 H (45-73) % Lymph % (Auto) 13.4 L (20-40) % [place] % (Auto) 8.1 (2-11) % Eos % (Auto) 0.8 (0-4) % Baso % (Auto) 0.4 (0-2) % Lymph # (Auto) 1.5 (1.2-4.9) X10*3/uL [place] # (Auto) 0.9 (0.1-1.2) X10*3/uL Eos # (Auto) 0.1 (0.0-0.4) X10*3/uL Baso # (Auto) 0.0 (0.0-0.2) X10*3/uL Abs Immat Gran (auto) 0.04 H (0.00-0.03) X10*3/uL Absolute Neuts (auto) 8.5 H (2.0-8.3) x10*3/uL Absolute Nucleated RBC 0.000 (0.0-0.012) X10*3/uL Nucleated RBC % (auto) 0.0 (0.0-0.2) /100WBC Sodium 140 (135-145) mmol/L Potassium 4.7 (3.3-5.1) mmol/L Chloride 108 (96-108) mmol/L Carbon Dioxide 25 (22-29) mmol/L Anion Gap 12 (12-20) BUN 21 H (9-16) mg/dL Creatinine 0.82 (0.5-1.4) mg/dL Estim Creat Clear Calc 143.4 Estimated GFR > 60 Random Glucose 101 (60-115) mg/dL Calcium 9.3 (8.4-10.2) mg/dL Magnesium 2.0 (1.6-2.6) mg/dL Total Bilirubin 0.4 (0.0-1.0) mg/dL AST 23 (5-37) U/L ALT 26 (0-40) U/L Alkaline Phosphatase 46 (39-117) U/L Troponin I High Sens 3.9 (<3.5-35.0) ng/L B-Natriuretic Peptide (<100) pg/mL Total Protein 6.5 (6.5-8.0) g/dL Albumin 4.0 (3.5-5.0) g/dL Urine Color Urine Appearance Urine pH (5.0-9.0) Ur Specific [place] (1.005-1.025) Urine Protein (Neg-Trace) mg/dL Urine Glucose (UA) (Negative) mg/dL Urine Ketones (Negative) mg/dL Urine Blood (Negative) Urine Nitrite (Negative) Ur Leukocyte Esterase (Negative) Urine Opiates Screen (Not Detect) Urine Fentanyl Screen (Not Detect) Ur Barbiturates Screen (Not Detect) Ur Phencyclidine Scrn (Not Detect) Ur Amphetamines Screen (Not Detect) U Benzodiazepines Scrn (Not Detect) Urine Cocaine Screen (Not Detect) U Marijuana (THC) Screen (Not Detect) Ethyl Alcohol < 10 mg/dL Influenza Type A (PCR) (Negative) Influenza Type B (PCR) (Negative) RSV RNA Qual (PCR) (Negative) SARS-CoV-2 RNA (RT-PCR) (Negative) 12/17/22 12/17/22 12/17/22 Range/Units 18:08 18:08 21:23 WBC (4.8-10.8) X10*3/uL RBC (4.60-5.80) X10*6/uL Hgb (14.0-18.0) g/dl Hct (42.0-52.0) % MCV (80.0-98.0) fL MCH (27.0-33.0) pg MCHC (31.0-36.0) g/dl RDW (11.0-16.0) % Plt Count (160-400) X10*3/uL MPV (9.4-12.4) fL Immature Gran % (Auto) (0.0-0.4) % Neut % (Auto) (45-73) % Lymph % (Auto) (20-40) % [place] % (Auto) (2-11) % Eos % (Auto) (0-4) % Baso % (Auto) (0-2) % Lymph # (Auto) (1.2-4.9) X10*3/uL [place] # (Auto) (0.1-1.2) X10*3/uL Eos # (Auto) (0.0-0.4) X10*3/uL Baso # (Auto) (0.0-0.2) X10*3/uL Abs Immat Gran (auto) (0.00-0.03) X10*3/uL Absolute Neuts (auto) (2.0-8.3) x10*3/uL Absolute Nucleated RBC (0.0-0.012) X10*3/uL Nucleated RBC % (auto) (0.0-0.2) /100WBC Sodium (135-145) mmol/L Potassium (3.3-5.1) mmol/L Chloride (96-108) mmol/L Carbon Dioxide (22-29) mmol/L Anion Gap (12-20) BUN (9-16) mg/dL Creatinine (0.5-1.4) mg/dL Estim Creat Clear Calc Estimated GFR Random Glucose (60-115) mg/dL Calcium (8.4-10.2) mg/dL Magnesium (1.6-2.6) mg/dL Total Bilirubin (0.0-1.0) mg/dL AST (5-37) U/L ALT (0-40) U/L Alkaline Phosphatase (39-117) U/L Troponin I High Sens (<3.5-35.0) ng/L B-Natriuretic Peptide 11 (<100) pg/mL Total Protein (6.5-8.0) g/dL Albumin (3.5-5.0) g/dL Urine Color Urine Appearance Urine pH (5.0-9.0) Ur Specific [place] (1.005-1.025) Urine Protein (Neg-Trace) mg/dL Urine Glucose (UA) (Negative) mg/dL Urine Ketones (Negative) mg/dL Urine Blood (Negative) Urine Nitrite (Negative) Ur Leukocyte Esterase (Negative) Urine Opiates Screen Not Detected (Not Detect) Urine Fentanyl Screen Not Detected (Not Detect) Ur Barbiturates Screen Not Detected (Not Detect) Ur Phencyclidine Scrn Not Detected (Not Detect) Ur Amphetamines Screen Not Detected (Not Detect) U Benzodiazepines Scrn Not Detected (Not Detect) Urine Cocaine Screen Not Detected (Not Detect) U Marijuana (THC) Screen Not Detected (Not Detect) Ethyl Alcohol mg/dL Influenza Type A (PCR) NEGATIVE (Negative) Influenza Type B (PCR) NEGATIVE (Negative) RSV RNA Qual (PCR) NEGATIVE (Negative) SARS-CoV-2 RNA (RT-PCR) NEGATIVE (Negative) 12/17/22 Range/Units 21:23 WBC (4.8-10.8) X10*3/uL RBC (4.60-5.80) X10*6/uL Hgb (14.0-18.0) g/dl Hct (42.0-52.0) % MCV (80.0-98.0) fL MCH (27.0-33.0) pg MCHC (31.0-36.0) g/dl RDW (11.0-16.0) % Plt Count (160-400) X10*3/uL MPV (9.4-12.4) fL Immature Gran % (Auto) (0.0-0.4) % Neut % (Auto) (45-73) % Lymph % (Auto) (20-40) % [place] % (Auto) (2-11) % Eos % (Auto) (0-4) % Baso % (Auto) (0-2) % Lymph # (Auto) (1.2-4.9) X10*3/uL [place] # (Auto) (0.1-1.2) X10*3/uL Eos # (Auto) (0.0-0.4) X10*3/uL Baso # (Auto) (0.0-0.2) X10*3/uL Abs Immat Gran (auto) (0.00-0.03) X10*3/uL Absolute Neuts (auto) (2.0-8.3) x10*3/uL Absolute Nucleated RBC (0.0-0.012) X10*3/uL Nucleated RBC % (auto) (0.0-0.2) /100WBC Sodium (135-145) mmol/L Potassium (3.3-5.1) mmol/L Chloride (96-108) mmol/L Carbon Dioxide (22-29) mmol/L Anion Gap (12-20) BUN (9-16) mg/dL Creatinine (0.5-1.4) mg/dL Estim Creat Clear Calc Estimated GFR Random Glucose (60-115) mg/dL Calcium (8.4-10.2) mg/dL Magnesium (1.6-2.6) mg/dL Total Bilirubin (0.0-1.0) mg/dL AST (5-37) U/L ALT (0-40) U/L Alkaline Phosphatase (39-117) U/L Troponin I High Sens (<3.5-35.0) ng/L B-Natriuretic Peptide (<100) pg/mL Total Protein (6.5-8.0) g/dL Albumin (3.5-5.0) g/dL Urine Color Yellow Urine Appearance Clear Urine pH 5.5 (5.0-9.0) Ur Specific [place] 1.010 (1.005-1.025) Urine Protein Negative (Neg-Trace) mg/dL Urine Glucose (UA) Negative (Negative) mg/dL Urine Ketones 15 (Negative) mg/dL Urine Blood Negative (Negative) Urine Nitrite Negative (Negative) Ur Leukocyte Esterase Negative (Negative) Urine Opiates Screen (Not Detect) Urine Fentanyl Screen (Not Detect) Ur Barbiturates Screen (Not Detect) Ur Phencyclidine Scrn (Not Detect) Ur Amphetamines Screen (Not Detect) U Benzodiazepines Scrn (Not Detect) Urine Cocaine Screen (Not Detect) U Marijuana (THC) Screen (Not Detect) Ethyl Alcohol mg/dL Influenza Type A (PCR) (Negative) Influenza Type B (PCR) (Negative) RSV RNA Qual (PCR) (Negative) SARS-CoV-2 RNA (RT-PCR) (Negative) <KYAW Moreno - Last Filed: 12/17/22 21:00> Lab Results 12/17/22 12/17/22 12/17/22 Range/Units 18:08 18:08 18:08 WBC 11.1 H (4.8-10.8) X10*3/uL RBC 4.44 L (4.60-5.80) X10*6/uL Hgb 13.0 L (14.0-18.0) g/dl Hct 37.4 L (42.0-52.0) % MCV 84.2 (80.0-98.0) fL MCH 29.3 (27.0-33.0) pg MCHC 34.8 (31.0-36.0) g/dl RDW 11.9 (11.0-16.0) % Plt Count 297 (160-400) X10*3/uL MPV 9.7 (9.4-12.4) fL Immature Gran % (Auto) 0.4 (0.0-0.4) % Neut % (Auto) 76.9 H (45-73) % Lymph % (Auto) 13.4 L (20-40) % [place] % (Auto) 8.1 (2-11) % Eos % (Auto) 0.8 (0-4) % Baso % (Auto) 0.4 (0-2) % Lymph # (Auto) 1.5 (1.2-4.9) X10*3/uL [place] # (Auto) 0.9 (0.1-1.2) X10*3/uL Eos # (Auto) 0.1 (0.0-0.4) X10*3/uL Baso # (Auto) 0.0 (0.0-0.2) X10*3/uL Abs Immat Gran (auto) 0.04 H (0.00-0.03) X10*3/uL Absolute Neuts (auto) 8.5 H (2.0-8.3) x10*3/uL Absolute Nucleated RBC 0.000 (0.0-0.012) X10*3/uL Nucleated RBC % (auto) 0.0 (0.0-0.2) /100WBC Sodium 140 (135-145) mmol/L Potassium 4.7 (3.3-5.1) mmol/L Chloride 108 (96-108) mmol/L Carbon Dioxide 25 (22-29) mmol/L Anion Gap 12 (12-20) BUN 21 H (9-16) mg/dL Creatinine 0.82 (0.5-1.4) mg/dL Estim Creat Clear Calc 143.4 Estimated GFR > 60 Random Glucose 101 (60-115) mg/dL Calcium 9.3 (8.4-10.2) mg/dL Magnesium 2.0 (1.6-2.6) mg/dL Total Bilirubin 0.4 (0.0-1.0) mg/dL AST 23 (5-37) U/L ALT 26 (0-40) U/L Alkaline Phosphatase 46 (39-117) U/L Troponin I High Sens 3.9 (<3.5-35.0) ng/L B-Natriuretic Peptide (<100) pg/mL Total Protein 6.5 (6.5-8.0) g/dL Albumin 4.0 (3.5-5.0) g/dL Urine Color Urine Appearance Urine pH (5.0-9.0) Ur Specific [place] (1.005-1.025) Urine Protein (Neg-Trace) mg/dL Urine Glucose (UA) (Negative) mg/dL Urine Ketones (Negative) mg/dL Urine Blood (Negative) Urine Nitrite (Negative) Ur Leukocyte Esterase (Negative) Urine Opiates Screen (Not Detect) Urine Fentanyl Screen (Not Detect) Ur Barbiturates Screen (Not Detect) Ur Phencyclidine Scrn (Not Detect) Ur Amphetamines Screen (Not Detect) U Benzodiazepines Scrn (Not Detect) Urine Cocaine Screen (Not Detect) U Marijuana (THC) Screen (Not Detect) Ethyl Alcohol < 10 mg/dL Influenza Type A (PCR) (Negative) Influenza Type B (PCR) (Negative) RSV RNA Qual (PCR) (Negative) SARS-CoV-2 RNA (RT-PCR) (Negative) 12/17/22 12/17/22 12/17/22 Range/Units 18:08 18:08 21:23 WBC (4.8-10.8) X10*3/uL RBC (4.60-5.80) X10*6/uL Hgb (14.0-18.0) g/dl Hct (42.0-52.0) % MCV (80.0-98.0) fL MCH (27.0-33.0) pg MCHC (31.0-36.0) g/dl RDW (11.0-16.0) % Plt Count (160-400) X10*3/uL MPV (9.4-12.4) fL Immature Gran % (Auto) (0.0-0.4) % Neut % (Auto) (45-73) % Lymph % (Auto) (20-40) % [place] % (Auto) (2-11) % Eos % (Auto) (0-4) % Baso % (Auto) (0-2) % Lymph # (Auto) (1.2-4.9) X10*3/uL [place] # (Auto) (0.1-1.2) X10*3/uL Eos # (Auto) (0.0-0.4) X10*3/uL Baso # (Auto) (0.0-0.2) X10*3/uL Abs Immat Gran (auto) (0.00-0.03) X10*3/uL Absolute Neuts (auto) (2.0-8.3) x10*3/uL Absolute Nucleated RBC (0.0-0.012) X10*3/uL Nucleated RBC % (auto) (0.0-0.2) /100WBC Sodium (135-145) mmol/L Potassium (3.3-5.1) mmol/L Chloride (96-108) mmol/L Carbon Dioxide (22-29) mmol/L Anion Gap (12-20) BUN (9-16) mg/dL Creatinine (0.5-1.4) mg/dL Estim Creat Clear Calc Estimated GFR Random Glucose (60-115) mg/dL Calcium (8.4-10.2) mg/dL Magnesium (1.6-2.6) mg/dL Total Bilirubin (0.0-1.0) mg/dL AST (5-37) U/L ALT (0-40) U/L Alkaline Phosphatase (39-117) U/L Troponin I High Sens (<3.5-35.0) ng/L B-Natriuretic Peptide 11 (<100) pg/mL Total Protein (6.5-8.0) g/dL Albumin (3.5-5.0) g/dL Urine Color Urine Appearance Urine pH (5.0-9.0) Ur Specific [place] (1.005-1.025) Urine Protein (Neg-Trace) mg/dL Urine Glucose (UA) (Negative) mg/dL Urine Ketones (Negative) mg/dL Urine Blood (Negative) Urine Nitrite (Negative) Ur Leukocyte Esterase (Negative) Urine Opiates Screen Not Detected (Not Detect) Urine Fentanyl Screen Not Detected (Not Detect) Ur Barbiturates Screen Not Detected (Not Detect) Ur Phencyclidine Scrn Not Detected (Not Detect) Ur Amphetamines Screen Not Detected (Not Detect) U Benzodiazepines Scrn Not Detected (Not Detect) Urine Cocaine Screen Not Detected (Not Detect) U Marijuana (THC) Screen Not Detected (Not Detect) Ethyl Alcohol mg/dL Influenza Type A (PCR) NEGATIVE (Negative) Influenza Type B (PCR) NEGATIVE (Negative) RSV RNA Qual (PCR) NEGATIVE (Negative) SARS-CoV-2 RNA (RT-PCR) NEGATIVE (Negative) 12/17/22 Range/Units 21:23 WBC (4.8-10.8) X10*3/uL RBC (4.60-5.80) X10*6/uL Hgb (14.0-18.0) g/dl Hct (42.0-52.0) % MCV (80.0-98.0) fL MCH (27.0-33.0) pg MCHC (31.0-36.0) g/dl RDW (11.0-16.0) % Plt Count (160-400) X10*3/uL MPV (9.4-12.4) fL Immature Gran % (Auto) (0.0-0.4) % Neut % (Auto) (45-73) % Lymph % (Auto) (20-40) % [place] % (Auto) (2-11) % Eos % (Auto) (0-4) % Baso % (Auto) (0-2) % Lymph # (Auto) (1.2-4.9) X10*3/uL [place] # (Auto) (0.1-1.2) X10*3/uL Eos # (Auto) (0.0-0.4) X10*3/uL Baso # (Auto) (0.0-0.2) X10*3/uL Abs Immat Gran (auto) (0.00-0.03) X10*3/uL Absolute Neuts (auto) (2.0-8.3) x10*3/uL Absolute Nucleated RBC (0.0-0.012) X10*3/uL Nucleated RBC % (auto) (0.0-0.2) /100WBC Sodium (135-145) mmol/L Potassium (3.3-5.1) mmol/L Chloride (96-108) mmol/L Carbon Dioxide (22-29) mmol/L Anion Gap (12-20) BUN (9-16) mg/dL Creatinine (0.5-1.4) mg/dL Estim Creat Clear Calc Estimated GFR Random Glucose (60-115) mg/dL Calcium (8.4-10.2) mg/dL Magnesium (1.6-2.6) mg/dL Total Bilirubin (0.0-1.0) mg/dL AST (5-37) U/L ALT (0-40) U/L Alkaline Phosphatase (39-117) U/L Troponin I High Sens (<3.5-35.0) ng/L B-Natriuretic Peptide (<100) pg/mL Total Protein (6.5-8.0) g/dL Albumin (3.5-5.0) g/dL Urine Color Yellow Urine Appearance Clear Urine pH 5.5 (5.0-9.0) Ur Specific [place] 1.010 (1.005-1.025) Urine Protein Negative (Neg-Trace) mg/dL Urine Glucose (UA) Negative (Negative) mg/dL Urine Ketones 15 (Negative) mg/dL Urine Blood Negative (Negative) Urine Nitrite Negative (Negative) Ur Leukocyte Esterase Negative (Negative) Urine Opiates Screen (Not Detect) Urine Fentanyl Screen (Not Detect) Ur Barbiturates Screen (Not Detect) Ur Phencyclidine Scrn (Not Detect) Ur Amphetamines Screen (Not Detect) U Benzodiazepines Scrn (Not Detect) Urine Cocaine Screen (Not Detect) U Marijuana (THC) Screen (Not Detect) Ethyl Alcohol mg/dL Influenza Type A (PCR) (Negative) Influenza Type B (PCR) (Negative) RSV RNA Qual (PCR) (Negative) SARS-CoV-2 RNA (RT-PCR) (Negative) <Jung HildaMarielPete - Last Filed: 12/17/22 19:58> Lab Results 12/17/22 12/17/22 12/17/22 Range/Units 18:08 18:08 18:08 WBC 11.1 H (4.8-10.8) X10*3/uL RBC 4.44 L (4.60-5.80) X10*6/uL Hgb 13.0 L (14.0-18.0) g/dl Hct 37.4 L (42.0-52.0) % MCV 84.2 (80.0-98.0) fL MCH 29.3 (27.0-33.0) pg MCHC 34.8 (31.0-36.0) g/dl RDW 11.9 (11.0-16.0) % Plt Count 297 (160-400) X10*3/uL MPV 9.7 (9.4-12.4) fL Immature Gran % (Auto) 0.4 (0.0-0.4) % Neut % (Auto) 76.9 H (45-73) % Lymph % (Auto) 13.4 L (20-40) % [place] % (Auto) 8.1 (2-11) % Eos % (Auto) 0.8 (0-4) % Baso % (Auto) 0.4 (0-2) % Lymph # (Auto) 1.5 (1.2-4.9) X10*3/uL [place] # (Auto) 0.9 (0.1-1.2) X10*3/uL Eos # (Auto) 0.1 (0.0-0.4) X10*3/uL Baso # (Auto) 0.0 (0.0-0.2) X10*3/uL Abs Immat Gran (auto) 0.04 H (0.00-0.03) X10*3/uL Absolute Neuts (auto) 8.5 H (2.0-8.3) x10*3/uL Absolute Nucleated RBC 0.000 (0.0-0.012) X10*3/uL Nucleated RBC % (auto) 0.0 (0.0-0.2) /100WBC Sodium 140 (135-145) mmol/L Potassium 4.7 (3.3-5.1) mmol/L Chloride 108 (96-108) mmol/L Carbon Dioxide 25 (22-29) mmol/L Anion Gap 12 (12-20) BUN 21 H (9-16) mg/dL Creatinine 0.82 (0.5-1.4) mg/dL Estim Creat Clear Calc 143.4 Estimated GFR > 60 Random Glucose 101 (60-115) mg/dL Calcium 9.3 (8.4-10.2) mg/dL Magnesium 2.0 (1.6-2.6) mg/dL Total Bilirubin 0.4 (0.0-1.0) mg/dL AST 23 (5-37) U/L ALT 26 (0-40) U/L Alkaline Phosphatase 46 (39-117) U/L Troponin I High Sens 3.9 (<3.5-35.0) ng/L B-Natriuretic Peptide (<100) pg/mL Total Protein 6.5 (6.5-8.0) g/dL Albumin 4.0 (3.5-5.0) g/dL Urine Color Urine Appearance Urine pH (5.0-9.0) Ur Specific [place] (1.005-1.025) Urine Protein (Neg-Trace) mg/dL Urine Glucose (UA) (Negative) mg/dL Urine Ketones (Negative) mg/dL Urine Blood (Negative) Urine Nitrite (Negative) Ur Leukocyte Esterase (Negative) Urine Opiates Screen (Not Detect) Urine Fentanyl Screen (Not Detect) Ur Barbiturates Screen (Not Detect) Ur Phencyclidine Scrn (Not Detect) Ur Amphetamines Screen (Not Detect) U Benzodiazepines Scrn (Not Detect) Urine Cocaine Screen (Not Detect) U Marijuana (THC) Screen (Not Detect) Ethyl Alcohol < 10 mg/dL Influenza Type A (PCR) (Negative) Influenza Type B (PCR) (Negative) RSV RNA Qual (PCR) (Negative) SARS-CoV-2 RNA (RT-PCR) (Negative) 12/17/22 12/17/22 12/17/22 Range/Units 18:08 18:08 21:23 WBC (4.8-10.8) X10*3/uL RBC (4.60-5.80) X10*6/uL Hgb (14.0-18.0) g/dl Hct (42.0-52.0) % MCV (80.0-98.0) fL MCH (27.0-33.0) pg MCHC (31.0-36.0) g/dl RDW (11.0-16.0) % Plt Count (160-400) X10*3/uL MPV (9.4-12.4) fL Immature Gran % (Auto) (0.0-0.4) % Neut % (Auto) (45-73) % Lymph % (Auto) (20-40) % [place] % (Auto) (2-11) % Eos % (Auto) (0-4) % Baso % (Auto) (0-2) % Lymph # (Auto) (1.2-4.9) X10*3/uL [place] # (Auto) (0.1-1.2) X10*3/uL Eos # (Auto) (0.0-0.4) X10*3/uL Baso # (Auto) (0.0-0.2) X10*3/uL Abs Immat Gran (auto) (0.00-0.03) X10*3/uL Absolute Neuts (auto) (2.0-8.3) x10*3/uL Absolute Nucleated RBC (0.0-0.012) X10*3/uL Nucleated RBC % (auto) (0.0-0.2) /100WBC Sodium (135-145) mmol/L Potassium (3.3-5.1) mmol/L Chloride (96-108) mmol/L Carbon Dioxide (22-29) mmol/L Anion Gap (12-20) BUN (9-16) mg/dL Creatinine (0.5-1.4) mg/dL Estim Creat Clear Calc Estimated GFR Random Glucose (60-115) mg/dL Calcium (8.4-10.2) mg/dL Magnesium (1.6-2.6) mg/dL Total Bilirubin (0.0-1.0) mg/dL AST (5-37) U/L ALT (0-40) U/L Alkaline Phosphatase (39-117) U/L Troponin I High Sens (<3.5-35.0) ng/L B-Natriuretic Peptide 11 (<100) pg/mL Total Protein (6.5-8.0) g/dL Albumin (3.5-5.0) g/dL Urine Color Urine Appearance Urine pH (5.0-9.0) Ur Specific [place] (1.005-1.025) Urine Protein (Neg-Trace) mg/dL Urine Glucose (UA) (Negative) mg/dL Urine Ketones (Negative) mg/dL Urine Blood (Negative) Urine Nitrite (Negative) Ur Leukocyte Esterase (Negative) Urine Opiates Screen Not Detected (Not Detect) Urine Fentanyl Screen Not Detected (Not Detect) Ur Barbiturates Screen Not Detected (Not Detect) Ur Phencyclidine Scrn Not Detected (Not Detect) Ur Amphetamines Screen Not Detected (Not Detect) U Benzodiazepines Scrn Not Detected (Not Detect) Urine Cocaine Screen Not Detected (Not Detect) U Marijuana (THC) Screen Not Detected (Not Detect) Ethyl Alcohol mg/dL Influenza Type A (PCR) NEGATIVE (Negative) Influenza Type B (PCR) NEGATIVE (Negative) RSV RNA Qual (PCR) NEGATIVE (Negative) SARS-CoV-2 RNA (RT-PCR) NEGATIVE (Negative) 12/17/22 Range/Units 21:23 WBC (4.8-10.8) X10*3/uL RBC (4.60-5.80) X10*6/uL Hgb (14.0-18.0) g/dl Hct (42.0-52.0) % MCV (80.0-98.0) fL MCH (27.0-33.0) pg MCHC (31.0-36.0) g/dl RDW (11.0-16.0) % Plt Count (160-400) X10*3/uL MPV (9.4-12.4) fL Immature Gran % (Auto) (0.0-0.4) % Neut % (Auto) (45-73) % Lymph % (Auto) (20-40) % [place] % (Auto) (2-11) % Eos % (Auto) (0-4) % Baso % (Auto) (0-2) % Lymph # (Auto) (1.2-4.9) X10*3/uL [place] # (Auto) (0.1-1.2) X10*3/uL Eos # (Auto) (0.0-0.4) X10*3/uL Baso # (Auto) (0.0-0.2) X10*3/uL Abs Immat Gran (auto) (0.00-0.03) X10*3/uL Absolute Neuts (auto) (2.0-8.3) x10*3/uL Absolute Nucleated RBC (0.0-0.012) X10*3/uL Nucleated RBC % (auto) (0.0-0.2) /100WBC Sodium (135-145) mmol/L Potassium (3.3-5.1) mmol/L Chloride (96-108) mmol/L Carbon Dioxide (22-29) mmol/L Anion Gap (12-20) BUN (9-16) mg/dL Creatinine (0.5-1.4) mg/dL Estim Creat Clear Calc Estimated GFR Random Glucose (60-115) mg/dL Calcium (8.4-10.2) mg/dL Magnesium (1.6-2.6) mg/dL Total Bilirubin (0.0-1.0) mg/dL AST (5-37) U/L ALT (0-40) U/L Alkaline Phosphatase (39-117) U/L Troponin I High Sens (<3.5-35.0) ng/L B-Natriuretic Peptide (<100) pg/mL Total Protein (6.5-8.0) g/dL Albumin (3.5-5.0) g/dL Urine Color Yellow Urine Appearance Clear Urine pH 5.5 (5.0-9.0) Ur Specific [place] 1.010 (1.005-1.025) Urine Protein Negative (Neg-Trace) mg/dL Urine Glucose (UA) Negative (Negative) mg/dL Urine Ketones 15 (Negative) mg/dL Urine Blood Negative (Negative) Urine Nitrite Negative (Negative) Ur Leukocyte Esterase Negative (Negative) Urine Opiates Screen (Not Detect) Urine Fentanyl Screen (Not Detect) Ur Barbiturates Screen (Not Detect) Ur Phencyclidine Scrn (Not Detect) Ur Amphetamines Screen (Not Detect) U Benzodiazepines Scrn (Not Detect) Urine Cocaine Screen (Not Detect) U Marijuana (THC) Screen (Not Detect) Ethyl Alcohol mg/dL Influenza Type A (PCR) (Negative) Influenza Type B (PCR) (Negative) RSV RNA Qual (PCR) (Negative) SARS-CoV-2 RNA (RT-PCR) (Negative) <Nomi Rojas MD - Last Filed: 12/18/22 07:50> Independent Interpretation I performed an independent interpretation of an: EKG <KYAW Moreno - Last Filed: 12/17/22 21:00> Interpretation: Vent. Rate: 071 BPM ? ? Atrial Rate: 071 BPM P-R Int: 152 ms? QRS Dur: 088 ms QT Int: 386 ms ? ? ? P-R-T Axes: 056 078 045 degrees QTc Int: 419 ms ? Normal sinus rhythm with sinus arrhythmia Normal ECG When compared with ECG of 11-DEC-2022 07:46, No significant change was found DD/ 1739 <KYAW Moreno - Last Filed: 12/17/22 21:00> Radiology Impression Radiologist Impression: My interpretation is in agreement with the radiologist's impression of this imaging study. EXAMINATION: XR CHEST CLINICAL INFORMATION: Chest pain. COMPARISON: None available. TECHNIQUE: 2 views of the chest were obtained. FINDINGS: No significant abnormality is noted involving the heart, lungs, mediastinum, bony thorax or soft tissues. XR/XR chest 2V IMPRESSION: Unremarkable examination. Dictated By: Chyna Kimble Signed By: Electronically signed by Chyan?Lamin 12/17/22 1756 <KYAW Moreno - Last Filed: 12/17/22 21:00> Independent Historian Clinical information obtained from an independent historian. History obtained from or confirmed by: EMS <KYAW Moreno - Last Filed: 12/17/22 21:00> Critical Care Time Critical Care Time Critical Care Time: Yes <KYAW Moreno - Last Filed: 12/17/22 21:00> Total Critical Care Time: 30 <KYAW Moreno - Last Filed: 12/17/22 21:00> Attestation: I spent 30 minutes of Critical Care Time with this patient. This does not include time spent on separately reported billable procedures. <KYAW Moreno - Last Filed: 12/17/22 21:00> Discharge Plan Discharge Clinical Impression: Feeling suicidal, Chest pain <KYAW Moreno - Last Filed: 12/17/22 21:00> Patient Disposition: Still a Patient <KYAW Moreno - Last Filed: 12/17/22 21:00> Prescriptions: No Action fluoxetine 40 mg capsule 80 mg PO DAILY spironolactone 100 mg tablet 100 mg PO BID melatonin 3 mg tablet 6 mg PO BEDTIME nicotine (polacrilex) 4 mg gum 4 mg PO Q2H PRN (Reason: Nicotine Cravings) buprenorphine-naloxone [Suboxone] 2-0.5 mg film 2 mg sublingual DAILY buprenorphine-naloxone [Suboxone] 8-2 mg film 1 film sublingual DAILY clonazepam 1 mg tablet 1 mg PO BID PRN (Reason: Anxiety) hydroxyzine pamoate 50 mg capsule 50 mg PO QID PRN (Reason: anxiety) omeprazole 20 mg capsule,delayed release(DR/EC) 20 mg PO QAM estradiol 2 mg tablet 2 mg PO TID bupropion HCl 300 mg tablet extended release 24 hr 300 mg PO QAM bupropion HCl 150 mg tablet extended release 24 hr 150 mg PO QAM multivitamin with folic acid [Tab-A-Josef] 400 mcg tablet 1 tab PO DAILY trazodone 100 mg tablet 200 mg PO BEDTIME PRN (Reason: insomnia) prazosin 5 mg capsule 10 mg PO BEDTIME <KYAW Moreno - Last Filed: 12/17/22 21:00>
[2022-12-17 18:14] LABS: MANUAL DIFF FLAG NO
[2022-12-17 18:16] LABS: Basophils Percent Auto 0.4 % (0-2); Eosinophils Absolute Auto 0.1 X10*3/uL (0.0-0.4); Eosinophils Percent Auto 0.8 % (0-4); Hematocrit 37.4 % (42.0-52.0); Imm Gran Abs Auto 0.04 X10*3/uL (0.00-0.03); Imm Gran Pct Auto 0.4 % (0.0-0.4); Lymphocytes Absolute Auto 1.5 X10*3/uL (1.2-4.9); Lymphocytes Percent Auto 13.4 % (20-40); Mean Corpuscular HGB Conc 34.8 g/dl (31.0-36.0); Mean Corpuscular Hemoglobin 29.3 pg (27.0-33.0); Mean Corpuscular Volume 84.2 fL (80.0-98.0); Mean Platelet Volume 9.7 fL (9.4-12.4); Monocytes Absolute Auto 0.9 X10*3/uL (0.1-1.2); Monocytes Percent Auto 8.1 % (2-11); Neutrophils Absolute Auto 8.5 x10*3/uL (2.0-8.3); Neutrophils Percent Auto 76.9 % (45-73); Platelet Count 297 X10*3/uL (160-400); Red Blood Count 4.44 X10*6/uL (4.60-5.80); Red Cell Distribution Width 11.9 % (11.0-16.0); White Blood Count 11.1 X10*3/uL (4.8-10.8)
[2022-12-17] MEDS: 0.9 % Sodium Chloride 1,000 ML 999 ML IV (18:26)
[2022-12-17 18:34] LABS: Alanine Aminotransferase 26 U/L (0-40); Alkaline Phosphatase 46 U/L (39-117); Anion Gap 12 (12-20); Aspartate Amino Transferase 23 U/L (5-37); Bilirubin Total 0.4 mg/dL (0.0-1.0); Blood Urea Nitrogen 21 mg/dL (9-16); Calcium 9.3 mg/dL (8.4-10.2); Carbon Dioxide 25 mmol/L (22-29); Chloride 108 mmol/L (96-108); Creatinine Clr Calc Pharmacy 143.4; Estimated Glomerular Filt Rate > 60; Glucose Random 101 mg/dL (60-115); Potassium 4.7 mmol/L (3.3-5.1); Sodium 140 mmol/L (135-145); Total Protein 6.5 g/dL (6.5-8.0)
[2022-12-17 18:40] LABS: B Type Natriuretic Peptide 11 pg/mL (<100)
[2022-12-17 18:41] LABS: Troponin-I High Sensitivity 3.9 ng/L (<3.5-35.0)
[2022-12-17 19:14] LABS: Influenza A PCR NEGATIVE (Negative); Influenza B PCR NEGATIVE (Negative); Resp Syncy Virus RNA Qual PCR NEGATIVE (Negative); SARS COV2 PCR INHOUSE NEGATIVE (Negative)
--- NOTE | 2022-12-17 19:44 | PC.NURSE ---
Assumed care of pt. at 1900. Pt. sitting in bed at this time. Pt. endorsing SI at this time with an unknown plan. Placed 1:1 sitter with pt. and will speak with MD for medical clearance and placement in POD>
[2022-12-17 20:29] LABS: Ethanol < 10 mg/dL
[2022-12-17] MEDS: Melatonin 3 MG TABLET 6 MG PO (21:16)
[2022-12-17] MEDS: estradioL 0.5 MG TABLET 2 MG PO (21:16)
[2022-12-17] MEDS: traZODone HCL 100 MG TABLET 200 MG PO (21:16)
[2022-12-17] MEDS: clonazePAM 1 MG TABLET PO (21:16)
[2022-12-17] MEDS: Prazosin HCL 5 MG CAPSULE 10 MG PO (21:17)
[2022-12-17] MEDS: Nicotine Polacrilex 2 MG GUM 4 MG BUCCAL (21:17)
[2022-12-17 21:18] VITALS: BP 113/79; PULSE 89; RESP 18; TEMP 36.8; O2SAT 98
[2022-12-17 21:39] LABS: Amphetamine Screen Urine Not Detected (Not Detect); Barbiturates, Urine Not Detected (Not Detect); Benzodiazepines Screen Urine Not Detected (Not Detect); Cannabinoid Screen Urine Not Detected (Not Detect); Cocaine Screen Urine Not Detected (Not Detect); Fentanyl, urine Not Detected (Not Detect); Opiate Screen Urine Not Detected (Not Detect); Phencyclidine Screen Urine Not Detected (Not Detect)
[2022-12-17 22:28] LABS: Color Urine Yellow; Glucose Urine UA Negative (Negative); Leukocyte Esterase Urine Negative (Negative); Nitrite Urine Negative (Negative); PH 5.5 (5.0-9.0); Urine Blood Negative (Negative); Urine Ketones 15 mg/dL (Negative); Urine Protein Negative (Neg-Trace)
[2022-12-17 22:31] LABS: Appearance Urine Clear
--- NOTE | 2022-12-18 05:59 | PC.NURSE ---
Patient slept through the night, no distress observed/reported, engaged well with care team clinician, disposition is section 12 inpatient bed search, medication compliant, labs completed/resulted, behavior non concerning, VSS, will continue to monitor.
[2022-12-18] MEDS: Omeprazole 20 MG CAPSULE.DR PO (06:24)
[2022-12-18 06:36] VITALS: PULSE 63; RESP 16; TEMP 36.7; O2SAT 97
--- NOTE | 2022-12-18 07:10 | PC.NURSE ---
Resumed care of this patient this morning, pt currently sleeping in room at this time. Pt is current bed search at this time.
[2022-12-18] MEDS: FLUoxetine HCl 20 MG CAPSULE 80 MG PO (10:20)
[2022-12-18] MEDS: buPROPion HCl XL 150 MG TAB.ER.24H PO (10:20)
[2022-12-18] MEDS: estradioL 0.5 MG TABLET 2 MG PO ×3 (10:20→21:02)
[2022-12-18] MEDS: Spironolactone 25 MG TABLET 100 MG PO (10:20)
[2022-12-18] MEDS: Multivitamin TABLET 1 TAB PO (10:20)
[2022-12-18] MEDS: buPROPion HCl XL 300 MG TAB.ER.24H PO (10:20)
[2022-12-18] MEDS: Buprenorphine/Naloxone 2/0.5mg FILM 2 FILM SUBLINGUAL (10:21)
[2022-12-18] MEDS: Buprenorphine/Naloxone 8/2 mg FILM 1 FILM SUBLINGUAL (10:21)
--- NOTE | 2022-12-18 12:37 | PC.NURSE ---
Pt out of room and on the phone in common area. seems calm and is laughing. Pt was concerned with suboxone dose this AM as she has not been taking that much at home, however tolerating it will at this time
[2022-12-18] MEDS: clonazePAM 1 MG TABLET PO (12:47)
[2022-12-18] MEDS: Nicotine Polacrilex 2 MG GUM 4 MG BUCCAL ×2 (12:47→16:53)
[2022-12-18 14:35] VITALS: BP 108/63; PULSE 76; RESP 15; TEMP 36.4; O2SAT 97
--- NOTE | 2022-12-18 16:06 | PC.NURSE ---
Report given to the floor.
[2022-12-18 16:24] VITALS: RESP 18
--- NOTE | 2022-12-18 18:29 | PC.ADMIT ---
Pt admitted to [facility] from [facility] ED. Pt presented in ED by EMS for chest pain (unremarkable), then later disclosed SI with plan to hang self at nursing home. Pt resides at [facility]. Per crisis report, nursing home staff reported that pt decided to wean self off meds about 2 weeks ago, and has begun having an increase in SI with [facility] to harm self. Pt is transgender M to F. Per ED staff, pt was calm, cooperative, and in behavioral control. Upon meeting with [facility] RN to complete admission assessment, pt reported that she was here for the long haul, and will be a section 3 or something . Pt reports multiple hospitalizations with aggressive and self-injurious behaviors that led to multiple restraints (med, physical, mechanical, seclusion). Has a history of admission to [facility]. put someone on me, make sure someone is watching me, I get very fucking clever, especially if there is stuff in the bathroom, bathroom is the most risky , and that triggers are staff antagonizing me, staff getting loose with their words , I'll go fucking nuts if they (staff) feel if they are treating me wrong . Reports only feeling safe if she is by the nurses station, and will go fucking nuts or jump the nurses station if asked to move away from the nurses station. Dr. Workman, Alina Mcneil, Genevieve Macdonald, and nursing framing mill supervisor notified. Pt placed on 1:1, and moved into a private room. Pt signed a CV.
[2022-12-18 20:15] VITALS: BP 98/53; PULSE 76; RESP 16; TEMP 36.9; O2SAT 96
[2022-12-18] MEDS: Acetaminophen 325 MG TABLET 650 MG PO (21:02)
[2022-12-18] MEDS: Melatonin 3 MG TABLET 6 MG PO (21:02)
[2022-12-19 08:00] VITALS: PULSE 80; RESP 18; TEMP 36.6; O2SAT 100
[2022-12-19] MEDS: Buprenorphine/Naloxone 8/2 mg FILM 1 FILM SUBLINGUAL (09:25)
[2022-12-19] MEDS: estradioL 0.5 MG TABLET 2 MG PO ×3 (09:28→21:52)
[2022-12-19] MEDS: Spironolactone 25 MG TABLET 100 MG PO ×3 (09:28→16:59)
[2022-12-19] MEDS: buPROPion HCl XL 300 MG TAB.ER.24H PO (09:30)
[2022-12-19] MEDS: buPROPion HCl XL 150 MG TAB.ER.24H PO (09:30)
[2022-12-19] MEDS: Multivitamin TABLET 1 TAB PO (09:31)
[2022-12-19] MEDS: Omeprazole 20 MG CAPSULE.DR PO (09:31)
[2022-12-19] MEDS: Buprenorphine/Naloxone 2/0.5mg FILM 2 FILM SUBLINGUAL (09:32)
[2022-12-19] MEDS: Nicotine Polacrilex 2 MG GUM 4 MG BUCCAL (10:25)
--- NOTE | 2022-12-19 10:30 | HO.PSYADMNOT ---
HPI Date of Service: 12/19/22 Chief Complaint: SI HPI Subjective Notes: Conditional Voluntary Narrative: Met with patient. Discussed with Nursing. Admitted with suicidal thoughts. Placed on one-to-one observation after making statements of actively thinking of suicide and methods while in the hospital. Transgender male to female. Noted from cares assessment, patient initially presented with chest pain. When medically cleared there was concerns around suicidal thoughts and subsequently evaluated and admitted. No active management issues since being on the unit with one-to-one observation since last night. Throughout interview patient is vague. Today reports feeling very suicidal for the last 1 week. Unable to think of a connection or stressor. However did mention that they have been living at a residential program ([facility]) and their 2 year time. Is expiring and there is no obvious place for them to transition to. Reports trying to taper off her medications recently as a did not want to be on medications With concerns around weight gain. Reports they have been suicidal daily for many many years. Chronic insomnia i.e. many many years. Describes having PTSD symptoms and borderline personality disorder. Reports depression has been present for as long as they can remember and never gets better. Denied psychosis. Denied HI. Reported if they were not on one-to-one observation currently they would try to jump off tables and break their neck. On Suboxone 12 mg daily and sober for 3 years. Reports last inpatient episode was following a 1 year hospitalization in [facility] and then transition to their current residential program from there. History of ECT but no benefit. Reports having an interest in T MS. Never been on Vraylar or Rexulti. Otherwise has been tried on multiple medication regimens. Socially living at the [facility] program for the last 2 years, their time is coming to an end but there is no obvious placed for then to transition to. Have DMH and ACCS services. Also visiting nurse services but unable to explain why but might be related to medication management. Single. No children. No legal issues. Reports never being able to hold down a job. GED and some college. Overall we discussed restarting medications, engaging with milieu and safety planning. Will work with primary team who can liaise with patient's community services and supports and optimize treatment/dispo planning. Past Psychiatric History: Describes having PTSD symptoms and borderline personality disorder. Reports depression has been present for as long as they can remember and never gets better. Denied psychosis. Denied HI. Reported if they were not on one-to-one observation currently they would try to jump off tables and break their neck. On Suboxone 12 mg daily and sober for 3 years. Reports last inpatient episode was following a 1 year hospitalization in [facility] and then transition to their current residential program from there. History of ECT but no benefit. Reports having an interest in T MS. Never been on Vraylar or Rexulti. Otherwise has been tried on multiple medication regimens. Medical Evaluation Reviewed: Yes [facility] Surgical History H/O breast augmentation Social History: Socially living at the [facility] for the last 2 years, their time is coming to an end but there is no obvious placed for then to transition to. Have DMH and ACCSservices. Also visiting nurse services but unable to explain why but might be related to medication management. Single. No children. No legal issues. Reports never being able to hold down a job. GED and some college. Trauma history Substance History: in remission on suboxone Trauma History: yes Diagnostics Vital Signs (24Hr): Vital Signs - 24 hr 12/18/22 14:35 12/18/22 16:24 12/18/22 20:15 Temperature 97.6 F 98.4 F Pulse Rate 76 76 Respiratory Rate 15 18 16 Blood Pressure 108/63 98/53 L Pulse Oximetry 97 96 Oxygen Delivery Method Room Air Room Air 12/19/22 08:00 Temperature 97.9 F Pulse Rate 80 Respiratory Rate 18 Blood Pressure Pulse Oximetry 100 Oxygen Delivery Method Room Air BMI result Body Mass Index 25.9 Labs 12/17/22 18:08 12/17/22 18:08 Labs: Laboratory Results - last 48 hr 12/17/22 12/17/22 12/17/22 18:08 18:08 18:08 WBC 11.1 H RBC 4.44 L Hgb 13.0 L Hct 37.4 L MCV 84.2 MCH 29.3 MCHC 34.8 RDW 11.9 Plt Count 297 MPV 9.7 Immature Gran % (Auto) 0.4 Neut % (Auto) 76.9 H Lymph % (Auto) 13.4 L [place] % (Auto) 8.1 Eos % (Auto) 0.8 Baso % (Auto) 0.4 Lymph # (Auto) 1.5 [place] # (Auto) 0.9 Eos # (Auto) 0.1 Baso # (Auto) 0.0 Abs Immat Gran (auto) 0.04 H Absolute Neuts (auto) 8.5 H Absolute Nucleated RBC 0.000 Nucleated RBC % (auto) 0.0 Sodium 140 Potassium 4.7 Chloride 108 Carbon Dioxide 25 Anion Gap 12 BUN 21 H Creatinine 0.82 Estim Creat Clear Calc 143.4 Estimated GFR > 60 Random Glucose 101 Calcium 9.3 Magnesium 2.0 Total Bilirubin 0.4 AST 23 ALT 26 Alkaline Phosphatase 46 Troponin I High Sens 3.9 B-Natriuretic Peptide Total Protein 6.5 Albumin 4.0 Urine Color Urine Appearance Urine pH Ur Specific [place] Urine Protein Urine Glucose (UA) Urine Ketones Urine Blood Urine Nitrite Ur Leukocyte Esterase Urine Opiates Screen Urine Fentanyl Screen Ur Barbiturates Screen Ur Phencyclidine Scrn Ur Amphetamines Screen U Benzodiazepines Scrn Urine Cocaine Screen U Marijuana (THC) Screen Ethyl Alcohol < 10 Influenza Type A (PCR) Influenza Type B (PCR) RSV RNA Qual (PCR) SARS-CoV-2 RNA (RT-PCR) 12/17/22 12/17/22 12/17/22 18:08 18:08 21:23 WBC RBC Hgb Hct MCV MCH MCHC RDW Plt Count MPV Immature Gran % (Auto) Neut % (Auto) Lymph % (Auto) [place] % (Auto) Eos % (Auto) Baso % (Auto) Lymph # (Auto) [place] # (Auto) Eos # (Auto) Baso # (Auto) Abs Immat Gran (auto) Absolute Neuts (auto) Absolute Nucleated RBC Nucleated RBC % (auto) Sodium Potassium Chloride Carbon Dioxide Anion Gap BUN Creatinine Estim Creat Clear Calc Estimated GFR Random Glucose Calcium Magnesium Total Bilirubin AST ALT Alkaline Phosphatase Troponin I High Sens B-Natriuretic Peptide 11 Total Protein Albumin Urine Color Urine Appearance Urine pH Ur Specific [place] Urine Protein Urine Glucose (UA) Urine Ketones Urine Blood Urine Nitrite Ur Leukocyte Esterase Urine Opiates Screen Not Detected Urine Fentanyl Screen Not Detected Ur Barbiturates Screen Not Detected Ur Phencyclidine Scrn Not Detected Ur Amphetamines Screen Not Detected U Benzodiazepines Scrn Not Detected Urine Cocaine Screen Not Detected U Marijuana (THC) Screen Not Detected Ethyl Alcohol Influenza Type A (PCR) NEGATIVE Influenza Type B (PCR) NEGATIVE RSV RNA Qual (PCR) NEGATIVE SARS-CoV-2 RNA (RT-PCR) NEGATIVE 12/17/22 21:23 WBC RBC Hgb Hct MCV MCH MCHC RDW Plt Count MPV Immature Gran % (Auto) Neut % (Auto) Lymph % (Auto) [place] % (Auto) Eos % (Auto) Baso % (Auto) Lymph # (Auto) [place] # (Auto) Eos # (Auto) Baso # (Auto) Abs Immat Gran (auto) Absolute Neuts (auto) Absolute Nucleated RBC Nucleated RBC % (auto) Sodium Potassium Chloride Carbon Dioxide Anion Gap BUN Creatinine Estim Creat Clear Calc Estimated GFR Random Glucose Calcium Magnesium Total Bilirubin AST ALT Alkaline Phosphatase Troponin I High Sens B-Natriuretic Peptide Total Protein Albumin Urine Color Yellow Urine Appearance Clear Urine pH 5.5 Ur Specific [place] 1.010 Urine Protein Negative Urine Glucose (UA) Negative Urine Ketones 15 Urine Blood Negative Urine Nitrite Negative Ur Leukocyte Esterase Negative Urine Opiates Screen Urine Fentanyl Screen Ur Barbiturates Screen Ur Phencyclidine Scrn Ur Amphetamines Screen U Benzodiazepines Scrn Urine Cocaine Screen U Marijuana (THC) Screen Ethyl Alcohol Influenza Type A (PCR) Influenza Type B (PCR) RSV RNA Qual (PCR) SARS-CoV-2 RNA (RT-PCR) Imaging Radiology Impressions: ITS Impressions Chest X-Ray 12/17/22 17:19 IMPRESSION: Unremarkable examination. Meds/Allergies Meds Home Medications Medication Instructions Recorded Confirmed Type buprenorphine 2 mg-naloxone 0.5 mg 2 mg sublingual DAILY 12/17/22 12/17/22 History sublingual film (Suboxone) buprenorphine 8 mg-naloxone 2 mg 1 film sublingual DAILY 12/17/22 12/17/22 History sublingual film (Suboxone) bupropion HCl 150 mg 24 hr tablet, 150 mg PO QAM 12/17/22 12/17/22 History extended release bupropion HCl 300 mg 24 hr tablet, 300 mg PO QAM 12/17/22 12/17/22 History extended release clonazepam 1 mg tablet 1 mg PO BID PRN Anxiety 12/17/22 12/17/22 History estradiol 2 mg tablet 2 mg PO TID 12/17/22 12/17/22 History fluoxetine 40 mg capsule 80 mg PO DAILY 12/17/22 12/17/22 History hydroxyzine pamoate 50 mg capsule 50 mg PO QID PRN anxiety 12/17/22 12/17/22 History melatonin 3 mg tablet 6 mg PO BEDTIME 12/17/22 12/17/22 History multivitamin with folic acid 400 1 tab PO DAILY 12/17/22 12/17/22 History mcg tablet (Tab-A-Josef) nicotine (polacrilex) 4 mg gum 4 mg PO Q2H PRN Nicotine Cravings 12/17/22 12/17/22 History omeprazole 20 mg capsule,delayed 20 mg PO QAM 12/17/22 12/17/22 History release prazosin 5 mg capsule 10 mg PO BEDTIME 12/17/22 12/17/22 History spironolactone 100 mg tablet 100 mg PO BID 12/17/22 12/17/22 History trazodone 100 mg tablet 200 mg PO BEDTIME PRN insomnia 12/17/22 12/17/22 History Allergies Allergies Allergy/AdvReac Type Severity Reaction Status Date / Time No Known Allergies Allergy Verified 07/13/22 10:05 Mental Status Exam Mental Status Exam Narrative: Pleasant. Engaged. Hospital clothing. One-to-one observation in place. Organized. affect appears reactive and largely euthymic. Reports however feeling dysthymic and depressed. Endorses SI with plans and reported they would try if they were not on one-to-one observation. No HI. No agitation. No psychosis. Insight and judgment okay Assessment & Plan Assessment & Plan (1) PTSD (post-traumatic stress disorder): Status: Acute Code(s): F43.10 - Post-traumatic stress disorder, unspecified (2) Borderline personality disorder: Status: Acute Code(s): F60.3 - Borderline personality disorder Plan presents with complex and longstanding psychiatric history and psychosocial situation and factors of importance. Unclear who current prescriber is. Does have DMH and ACCS services. On Suboxone maintenance. Overall we discussed restarting medications, engaging with milieu and safety planning. Will work with primary team who can liaise with patient's community services and supports and optimize treatment/dispo planning. Patient educated on: diagnosis and medication risk/benefits Reason for continued inpatient stay Substantial Risk for: harm to self Statement Statement: I have reviewed the history and physical and performed a pertinent examination on my patient. No changes have occurred unless specified. If the History and Physical was not performed prior to admission, the Hospitalist's service will be consulted for completing the admission physical. Time Spent With Patient Time: Total time managing care of this patient today ____ minutes.
[2022-12-19] MEDS: clonazePAM 1 MG TABLET PO (12:03)
[2022-12-19] MEDS: hydrOXYzine HCL 50 MG TABLET PO (17:07)
--- NOTE | 2022-12-19 18:36 | PC.NURSE ---
1829 Pt confirmed this am that she wanted Flu vax, Pt refused and said ill take it before bed, I don't want a sore arm
[2022-12-19 21:50] VITALS: BP 109/55; PULSE 61; RESP 16; O2SAT 97
[2022-12-19] MEDS: Melatonin 3 MG TABLET 6 MG PO (21:53)
[2022-12-19] MEDS: Prazosin HCL 5 MG CAPSULE 10 MG PO (21:53)
[2022-12-20] MEDS: buPROPion HCl XL 300 MG TAB.ER.24H PO (09:27)
[2022-12-20] MEDS: Omeprazole 20 MG CAPSULE.DR PO (09:27)
[2022-12-20] MEDS: buPROPion HCl XL 150 MG TAB.ER.24H PO (09:27)
[2022-12-20] MEDS: Multivitamin TABLET 1 TAB PO (09:27)
[2022-12-20] MEDS: estradioL 0.5 MG TABLET 2 MG PO ×3 (09:28→21:41)
[2022-12-20] MEDS: Spironolactone 25 MG TABLET 100 MG PO ×2 (09:28→16:12)
[2022-12-20] MEDS: Buprenorphine/Naloxone 8/2 mg FILM 1 FILM SUBLINGUAL (09:29)
[2022-12-20] MEDS: Buprenorphine/Naloxone 2/0.5mg FILM 2 FILM SUBLINGUAL (09:29)
[2022-12-20] MEDS: Nicotine Polacrilex 2 MG GUM 4 MG BUCCAL ×3 (09:33→16:12)
[2022-12-20 09:46] VITALS: BP 146/70; PULSE 94; RESP 18; TEMP 36.3; O2SAT 94
--- NOTE | 2022-12-20 10:01 | PC.NURSE ---
Addendum entered by Virginia Jasmine RN 12/20/22 10:08: Provider Shemar Post was notified. Original Note: Patient observed by 1:1 staff member to be scratching left inner arm with right hand/nails. 1:1 reported it to this RN. This RN observed Left inner arm to be reddened and have superficial scratches. Patient was offered diversion activities like art, walking, talking with staff, calling someone. Pt initially refused saying no I want to do it, it feels so good . Patient was offered activities again To which patient then said well I will get up and call my mom . Patient proceeded to rise and ambulate to the phone. NO further self injurious behaviors at this time.
[2022-12-20] MEDS: clonazePAM 1 MG TABLET PO ×2 (13:47→20:10)
--- NOTE | 2022-12-20 14:39 | P.PNPSI_ITS ---
Subjective Subjective Date of Service: 12/20/22 Reason For Visit: SI Interim History: calm, cooperative. reports recent med changes of reduced klonopin dosing, which she reports was her idea, not her prescriber's. nevertheless, she reports the prescriber decreased it too rapidly and it has cause her problems. believes her prescriber's name is noemy, can't recall last name. says she is not taking prozac and asks the order be DCed. asks for thorazine PRN agitation, which is done. also states she does not wish to be taking wellbutrin, so MD agrees to begin taper by decreasing dose to 300 mg daily (from 450). on being asked for goals of hospitalization and how she knows she will be ready for discharge, she discusses how she does not feel safe at the [facility] program and that is smells like . she also states she has been having a poor PO intake recently, stating she lost 10 pounds in the week prior to admission via restricting and purging. pt was asked again about goals of hospitalization and states she doesnot know what they might be, but that she is feeling safer here than at [facility] and that she expects to be here for a long time. she says she plans to put in a 3-day notice so that she will get committed for 6 months. Mental Status Exam Mental Status Exam Narrative: Pleasant. Engaged. Hospital clothing. One-to-one observation in place. Organized. affect appears reactive and largely euthymic. Reports however feeling dysthymic and depressed. Endorses SI. No HI. No agitation. No psychosis. Insight and judgment okay Diagnostics Vital Signs (24Hr): Vital Signs - 24 hr 12/19/22 21:50 12/20/22 09:46 Temperature 97.4 F Pulse Rate 61 94 Respiratory Rate 16 18 Blood Pressure 109/55 L 146/70 H Pulse Oximetry 97 94 Oxygen Delivery Method Room Air Room Air BMI result Body Mass Index 25.9 Labs 12/17/22 18:08 12/17/22 18:08 Imaging Radiology Impressions: ITS Impressions Chest X-Ray 12/17/22 17:19 IMPRESSION: Unremarkable examination. Medications Medications Current Medications Acetaminophen (Acetaminophen 325 Mg Tablet) 650 mg PO Q6H PRN PRN Reason: Headache/Pain Mild Scale (1-3) Last Admin: 12/18/22 21:02 Dose: 650 mg Al Hydroxide/Mg Hydroxide (Magnesium Hydrox/Alum Hydrox 30 Ml Oral.Susp) 30 ml PO Q6H PRN PRN Reason: Heartburn/Nausea Buprenorphine/Naloxone (Buprenorphine/Naloxone 2/0.5mg Film) 2 film SUBLINGUAL DAILY [facility] Last Admin: 12/20/22 09:29 Dose: 2 film Buprenorphine/Naloxone (Buprenorphine/Naloxone 8/2 Mg Film) 1 film SUBLINGUAL DAILY [facility] Last Admin: 12/20/22 09:29 Dose: 1 film Bupropion HCl (Bupropion Hcl Xl 300 Mg Tab.Er.24h) 300 mg PO DAILY [facility] Last Admin: 12/20/22 09:27 Dose: 300 mg Chlorpromazine HCl (Chlorpromazine Hcl 100 Mg Tablet) 100 mg PO Q4H PRN PRN Reason: AGITATION Clonazepam (Clonazepam 1 Mg Tablet) 1 mg PO BID PRN PRN Reason: Anxiety Last Admin: 12/20/22 13:47 Dose: 1 mg Estradiol (Estradiol 0.5 Mg Tablet) 2 mg PO TID [facility] Last Admin: 12/20/22 09:28 Dose: 2 mg Hydroxyzine HCl (Hydroxyzine Hcl 50 Mg Tablet) 50 mg PO QID PRN PRN Reason: anxiety Last Admin: 12/19/22 17:07 Dose: 50 mg Magnesium Hydroxide (Milk Of Magnesia 30 Ml Oral.Susp) 30 ml PO DAILY PRN PRN Reason: Constipation Melatonin (Melatonin 3 Mg Tablet) 6 mg PO BEDTIME [facility] Last Admin: 12/19/22 21:53 Dose: 6 mg Multivitamins/Vitamin C (Multivitamin Tablet) 1 tab PO DAILY [facility] Last Admin: 12/20/22 09:27 Dose: 1 tab Nicotine Polacrilex (Nicotine Polacrilex 2 Mg Gum) 4 mg BUCCAL Q2H PRN PRN Reason: Nicotine Cravings Last Admin: 12/20/22 13:50 Dose: 4 mg Omeprazole (Omeprazole 20 Mg Capsule.Dr) 20 mg PO DAILY@0630 [facility] Last Admin: 12/20/22 09:27 Dose: 20 mg Prazosin HCl (Prazosin Hcl 5 Mg Capsule) 10 mg PO BEDTIME [facility]; Protocol Last Admin: 12/19/22 21:53 Dose: 10 mg Spironolactone (Spironolactone 25 Mg Tablet) 100 mg PO BIDWM [facility]; Protocol Last Admin: 12/20/22 09:28 Dose: 100 mg Trazodone HCl (Trazodone Hcl 100 Mg Tablet) 200 mg PO BEDTIME MRX1 PRN PRN Reason: Insomnia Allergies Allergies Allergy/AdvReac Type Severity Reaction Status Date / Time No Known Allergies Allergy Verified 07/13/22 10:05 Assessment & Plan Assessment & Plan (1) PTSD (post-traumatic stress disorder): Status: Acute Code(s): F43.10 - Post-traumatic stress disorder, unspecified (2) Borderline personality disorder: Status: Acute Code(s): F60.3 - Borderline personality disorder Plan 12/19: presents with complex and longstanding psychiatric history and psychosocial situation and factors of importance. Unclear who current prescriber is. Does have DMH and ACCS services. On Suboxone maintenance. Overall we discussed restarting medications, engaging with milieu and safety planning. Will work with primary team who can liaise with patient's community services and supports and optimize treatment/dispo planning. 12/20: DC prozac, decrease wellbutrin to 300 mg daily, and start thorazine 100 PRN per pt request. pt reports plan to submit 3-day notice in effort to get committed for 6 months. Reason for contiued inpatient stay Substantial Risk for: inability to function and rapid decompensation Time Spent With Patient Time: Total time managing care of this patient today __35__ minutes.
[2022-12-20 16:17] VITALS: BP 112/60; PULSE 93
--- NOTE | 2022-12-20 19:17 | PC.NURSE ---
This RN was notified by ancillary staff member that pt reported that they had cut themselves using a ede. Pt observed with a cut dejon on left arm from wrist up arm to inner bicep area. Superficial wound observer with minute blood from scratch. When asked what happened pt reported the lady came in to give me my keys to show which dee I wanted to give to Melita because we share a locker at the half-way. So I dropped my keys. She picked up my keys and then I cut myself with the dee I took off the ring to give to Melita . Patient remains on 1:1. Reports continued urge and thoughts to self harm. call worker person Dr. Gary Notified. Patient encouraged to notify 1:1 when these thoughts occur and to utilize coping skills.
--- NOTE | 2022-12-20 20:19 | PC.NURSE ---
It was reported to this RN that the pt was utilizing a cap to a shampoo bottle to attempt to self harm again in the bathroom and then brought it to their bed in their mouth and spit it out. When this RN asked the patient what happened the patient stated I tried to open this cut more (referring to the self inflicted superficial wound on left arm). If it was sharper I would be inside the bathroom. If I could find anything sharp then I would be in the bathroom . Patient was offered to walk and talk with staff, food, fluids, PRN medications. Patient received PRN Klonopin and paced the halls with staff. Encouraged again to alert staff when these symptoms and thoughts come about.
[2022-12-20] MEDS: Prazosin HCL 5 MG CAPSULE 10 MG PO (21:41)
[2022-12-20] MEDS: Melatonin 3 MG TABLET 6 MG PO (21:41)
[2022-12-20 21:45] VITALS: BP 106/64; PULSE 80; RESP 18; O2SAT 98
[2022-12-21] MEDS: Buprenorphine/Naloxone 2/0.5mg FILM 2 FILM SUBLINGUAL (09:39)
[2022-12-21] MEDS: Buprenorphine/Naloxone 8/2 mg FILM 1 FILM SUBLINGUAL (09:39)
[2022-12-21] MEDS: Spironolactone 25 MG TABLET 100 MG PO ×2 (09:41→17:37)
[2022-12-21] MEDS: estradioL 0.5 MG TABLET 2 MG PO ×3 (09:41→21:36)
[2022-12-21] MEDS: Multivitamin TABLET 1 TAB PO (09:42)
[2022-12-21] MEDS: buPROPion HCl XL 300 MG TAB.ER.24H PO (09:42)
[2022-12-21] MEDS: Omeprazole 20 MG CAPSULE.DR PO (09:42)
[2022-12-21 09:46] VITALS: BP 114/56; PULSE 70; RESP 16; TEMP 36.6; O2SAT 99
[2022-12-21] MEDS: clonazePAM 1 MG TABLET PO ×2 (10:12→17:40)
[2022-12-21] MEDS: Nicotine Polacrilex 2 MG GUM 4 MG BUCCAL ×2 (11:47→13:59)
--- NOTE | 2022-12-21 15:58 | P.PNPSI_ITS ---
Subjective Subjective Date of Service: 12/21/22 Reason For Visit: SI Interim History: calm, cooperative. SI continues. vague regarding goals for hospitalization or what treatment may be helpful for her. very much aware that DBT is the treatment of choice and states she is very well versed in DBT. states most of the time she is able to use DBT skills to prevent herself from self-harming, but every now and again it becomes impossible, which is when she seeks hospitalization. demonstrates long superficial cut on her volar left arm which she reports she did with a dee she as given access to on the unit. per staff, remains on 1:1 with locked bathroom, restless. slept on and off. pacing the halls. +SI. denies HI/AVH. scratching self, used bottle cap in shower to try to harm self. used dee she was inadvertently given access to to superficially cut her forearm. Mental Status Exam Mental Status Exam Narrative: Pleasant. Engaged. Hospital clothing. One-to-one observation in place. Organized. affect appears reactive and largely euthymic. Reports however feeling dysthymic and depressed. Endorses SI. No HI. No agitation. No psychosis. Insight and judgment okay Diagnostics Vital Signs (24Hr): Vital Signs - 24 hr 12/20/22 16:17 12/20/22 21:45 12/21/22 09:46 Temperature 97.9 F Pulse Rate 93 80 70 Respiratory Rate 18 16 Blood Pressure 112/60 106/64 114/56 L Pulse Oximetry 98 99 Oxygen Delivery Method Room Air Room Air BMI result Body Mass Index 25.9 Labs 12/17/22 18:08 12/17/22 18:08 Imaging Radiology Impressions: ITS Impressions Chest X-Ray 12/17/22 17:19 IMPRESSION: Unremarkable examination. Medications Medications Current Medications Acetaminophen (Acetaminophen 325 Mg Tablet) 650 mg PO Q6H PRN PRN Reason: Headache/Pain Mild Scale (1-3) Last Admin: 12/18/22 21:02 Dose: 650 mg Al Hydroxide/Mg Hydroxide (Magnesium Hydrox/Alum Hydrox 30 Ml Oral.Susp) 30 ml PO Q6H PRN PRN Reason: Heartburn/Nausea Buprenorphine/Naloxone (Buprenorphine/Naloxone 2/0.5mg Film) 2 film SUBLINGUAL DAILY [facility] Last Admin: 12/21/22 09:39 Dose: 2 film Buprenorphine/Naloxone (Buprenorphine/Naloxone 8/2 Mg Film) 1 film SUBLINGUAL DAILY [facility] Last Admin: 12/21/22 09:39 Dose: 1 film Bupropion HCl (Bupropion Hcl Xl 300 Mg Tab.Er.24h) 300 mg PO DAILY [facility] Last Admin: 12/21/22 09:42 Dose: 300 mg Chlorpromazine HCl (Chlorpromazine Hcl 100 Mg Tablet) 100 mg PO Q4H PRN PRN Reason: AGITATION Clonazepam (Clonazepam 1 Mg Tablet) 1 mg PO DAILY PRN PRN Reason: Anxiety Estradiol (Estradiol 0.5 Mg Tablet) 2 mg PO TID [facility] Last Admin: 12/21/22 13:59 Dose: 2 mg Hydroxyzine HCl (Hydroxyzine Hcl 50 Mg Tablet) 50 mg PO QID PRN PRN Reason: anxiety Last Admin: 12/19/22 17:07 Dose: 50 mg Magnesium Hydroxide (Milk Of Magnesia 30 Ml Oral.Susp) 30 ml PO DAILY PRN PRN Reason: Constipation Melatonin (Melatonin 3 Mg Tablet) 6 mg PO BEDTIME [facility] Last Admin: 12/20/22 21:41 Dose: 6 mg Multivitamins/Vitamin C (Multivitamin Tablet) 1 tab PO DAILY [facility] Last Admin: 12/21/22 09:42 Dose: 1 tab Nicotine Polacrilex (Nicotine Polacrilex 2 Mg Gum) 4 mg BUCCAL Q2H PRN PRN Reason: Nicotine Cravings Last Admin: 12/21/22 13:59 Dose: 4 mg Omeprazole (Omeprazole 20 Mg Capsule.Dr) 20 mg PO DAILY@0630 [facility] Last Admin: 12/21/22 09:42 Dose: 20 mg Prazosin HCl (Prazosin Hcl 5 Mg Capsule) 10 mg PO BEDTIME [facility]; Protocol Last Admin: 12/20/22 21:41 Dose: 10 mg Spironolactone (Spironolactone 25 Mg Tablet) 100 mg PO BIDWM [facility]; Protocol Last Admin: 12/21/22 09:41 Dose: 100 mg Trazodone HCl (Trazodone Hcl 100 Mg Tablet) 200 mg PO BEDTIME MRX1 PRN PRN Reason: Insomnia Allergies Allergies Allergy/AdvReac Type Severity Reaction Status Date / Time No Known Allergies Allergy Verified 07/13/22 10:05 Assessment & Plan Assessment & Plan (1) PTSD (post-traumatic stress disorder): Status: Acute Code(s): F43.10 - Post-traumatic stress disorder, unspecified (2) Borderline personality disorder: Status: Acute Code(s): F60.3 - Borderline personality disorder Plan 12/19: presents with complex and longstanding psychiatric history and psychosocial situation and factors of importance. Unclear who current prescriber is. Does have DMH and ACCS services. On Suboxone maintenance. Overall we discussed restarting medications, engaging with milieu and safety planning. Will work with primary team who can liaise with patient's community services and supports and optimize treatment/dispo planning. 12/20: DC prozac, decrease wellbutrin to 300 mg daily, and start thorazine 100 PRN per pt request. pt reports plan to submit 3-day notice in effort to get committed for 6 months. 12/21: no change in presentation. submitted 3-day notice today. Reason for contiued inpatient stay Substantial Risk for: harm to self Time Spent With Patient Time: Total time managing care of this patient today __25__ minutes.
[2022-12-21 17:38] VITALS: BP 115/57; PULSE 65
[2022-12-21] MEDS: Melatonin 3 MG TABLET 6 MG PO (21:36)
[2022-12-21] MEDS: Prazosin HCL 5 MG CAPSULE 10 MG PO (21:36)
[2022-12-21 21:42] VITALS: BP 109/64; PULSE 71; TEMP 36.6; O2SAT 100
[2022-12-22] MEDS: traZODone HCL 100 MG TABLET 200 MG PO (03:10)
[2022-12-22] MEDS: chlorproMAZINE HCl 100 MG TABLET PO (03:10)
[2022-12-22 10:00] VITALS: BP 107/55; PULSE 105; TEMP 36.3; O2SAT 98
[2022-12-22] MEDS: buPROPion HCl XL 300 MG TAB.ER.24H PO (10:12)
[2022-12-22] MEDS: Multivitamin TABLET 1 TAB PO (10:12)
[2022-12-22] MEDS: estradioL 0.5 MG TABLET 2 MG PO ×3 (10:12→21:37)
[2022-12-22] MEDS: Omeprazole 20 MG CAPSULE.DR PO (10:13)
[2022-12-22] MEDS: Spironolactone 25 MG TABLET 100 MG PO (10:13)
[2022-12-22] MEDS: Buprenorphine/Naloxone 8/2 mg FILM 1 FILM SUBLINGUAL (10:14)
[2022-12-22] MEDS: Buprenorphine/Naloxone 2/0.5mg FILM 2 FILM SUBLINGUAL (10:14)
[2022-12-22] MEDS: Bacitracin Oint 14 GM TUBE 1 APPL TOPICAL ×2 (12:21→21:58)
--- NOTE | 2022-12-22 16:19 | P.DS_ITS ---
DS: Providers Provider Date of Service: 12/22/22 Date of admission: 12/18/22 16:15 Primary care physician: Unknown Physician DS: Diagnosis Discharge Diagnosis (1) PTSD (post-traumatic stress disorder): Status: Acute (2) Borderline personality disorder: Status: Acute DS: Medications Discharge Medications Home Medications: Home Medications Medication Instructions Recorded Confirmed buprenorphine 2 mg-naloxone 0.5 mg 2 mg sublingual DAILY 12/17/22 12/17/22 sublingual film (Suboxone) buprenorphine 8 mg-naloxone 2 mg 1 film sublingual DAILY 12/17/22 12/17/22 sublingual film (Suboxone) bupropion HCl 300 mg 24 hr tablet, 300 mg PO QAM 12/17/22 12/17/22 extended release clonazepam 1 mg tablet 1 mg PO BID PRN Anxiety 12/17/22 12/17/22 estradiol 2 mg tablet 2 mg PO TID 12/17/22 12/17/22 fluoxetine 40 mg capsule 80 mg PO DAILY 12/17/22 12/17/22 hydroxyzine pamoate 50 mg capsule 50 mg PO QID PRN anxiety 12/17/22 12/17/22 melatonin 3 mg tablet 6 mg PO BEDTIME 12/17/22 12/17/22 multivitamin with folic acid 400 1 tab PO DAILY 12/17/22 12/17/22 mcg tablet (Tab-A-Josef) nicotine (polacrilex) 4 mg gum 4 mg PO Q2H PRN Nicotine Cravings 12/17/22 0 12/17/22 omeprazole 20 mg capsule,delayed 20 mg PO QAM 12/17/22 12/17/22 release prazosin 5 mg capsule 10 mg PO BEDTIME 12/17/22 12/17/22 spironolactone 100 mg tablet 100 mg PO BID 12/17/22 12/17/22 trazodone 100 mg tablet 200 mg PO BEDTIME PRN insomnia 12/17/22 12/17/22 Previous Rx's Medication Instructions Recorded chlorpromazine 100 mg tablet 50 mg PO DAILY PRN AGITATION 30 12/22/22 days #15 tabs Mental Status Exam Mental Status Exam Narrative: Pleasant. Engaged. Hospital clothing. One-to-one observation in place. Organized. affect appears reactive and largely euthymic. Reports however feeling dysthymic and depressed. denies SI/SIBI. No HI. No agitation. No psychosis. Insight and judgment okay Data Data Completed and Pending Completed studies during hospitalization [Text1]: 12/17/22 12/17/22 12/17/22 18:08 18:08 18:08 WBC 11.1 H RBC 4.44 L Hgb 13.0 L Hct 37.4 L MCV 84.2 MCH 29.3 MCHC 34.8 RDW 11.9 Plt Count 297 MPV 9.7 Immature Gran % (Auto) 0.4 Neut % (Auto) 76.9 H Lymph % (Auto) 13.4 L Upson % (Auto) 8.1 Eos % (Auto) 0.8 Baso % (Auto) 0.4 Lymph # (Auto) 1.5 Upson # (Auto) 0.9 Eos # (Auto) 0.1 Baso # (Auto) 0.0 Abs Immat Gran (auto) 0.04 H Absolute Neuts (auto) 8.5 H Absolute Nucleated RBC 0.000 Nucleated RBC % (auto) 0.0 Sodium 140 Potassium 4.7 Chloride 108 Carbon Dioxide 25 Anion Gap 12 BUN 21 H Creatinine 0.82 Estim Creat Clear Calc 143.4 Estimated GFR > 60 Random Glucose 101 Calcium 9.3 Magnesium 2.0 Total Bilirubin 0.4 AST 23 ALT 26 Alkaline Phosphatase 46 Troponin I High Sens 3.9 B-Natriuretic Peptide Total Protein 6.5 Albumin 4.0 Urine Color Urine Appearance Urine pH Ur Specific Auxier Urine Protein Urine Glucose (UA) Urine Ketones Urine Blood Urine Nitrite Ur Leukocyte Esterase Urine Opiates Screen Urine Fentanyl Screen Ur Barbiturates Screen Ur Phencyclidine Scrn Ur Amphetamines Screen U Benzodiazepines Scrn Urine Cocaine Screen U Marijuana (THC) Screen Ethyl Alcohol < 10 Influenza Type A (PCR) Influenza Type B (PCR) RSV RNA Qual (PCR) SARS-CoV-2 RNA (RT-PCR) 12/17/22 12/17/22 12/17/22 18:08 18:08 21:23 WBC RBC Hgb Hct MCV MCH MCHC RDW Plt Count MPV Immature Gran % (Auto) Neut % (Auto) Lymph % (Auto) Upson % (Auto) Eos % (Auto) Baso % (Auto) Lymph # (Auto) Upson # (Auto) Eos # (Auto) Baso # (Auto) Abs Immat Gran (auto) Absolute Neuts (auto) Absolute Nucleated RBC Nucleated RBC % (auto) Sodium Potassium Chloride Carbon Dioxide Anion Gap BUN Creatinine Estim Creat Clear Calc Estimated GFR Random Glucose Calcium Magnesium Total Bilirubin AST ALT Alkaline Phosphatase Troponin I High Sens B-Natriuretic Peptide 11 Total Protein Albumin Urine Color Urine Appearance Urine pH Ur Specific Auxier Urine Protein Urine Glucose (UA) Urine Ketones Urine Blood Urine Nitrite Ur Leukocyte Esterase Urine Opiates Screen Not Detected Urine Fentanyl Screen Not Detected Ur Barbiturates Screen Not Detected Ur Phencyclidine Scrn Not Detected Ur Amphetamines Screen Not Detected U Benzodiazepines Scrn Not Detected Urine Cocaine Screen Not Detected U Marijuana (THC) Screen Not Detected Ethyl Alcohol Influenza Type A (PCR) NEGATIVE Influenza Type B (PCR) NEGATIVE RSV RNA Qual (PCR) NEGATIVE SARS-CoV-2 RNA (RT-PCR) NEGATIVE 12/17/22 21:23 WBC RBC Hgb Hct MCV MCH MCHC RDW Plt Count MPV Immature Gran % (Auto) Neut % (Auto) Lymph % (Auto) Upson % (Auto) Eos % (Auto) Baso % (Auto) Lymph # (Auto) Upson # (Auto) Eos # (Auto) Baso # (Auto) Abs Immat Gran (auto) Absolute Neuts (auto) Absolute Nucleated RBC Nucleated RBC % (auto) Sodium Potassium Chloride Carbon Dioxide Anion Gap BUN Creatinine Estim Creat Clear Calc Estimated GFR Random Glucose Calcium Magnesium Total Bilirubin AST ALT Alkaline Phosphatase Troponin I High Sens B-Natriuretic Peptide Total Protein Albumin Urine Color Yellow Urine Appearance Clear Urine pH 5.5 Ur Specific Auxier 1.010 Urine Protein Negative Urine Glucose (UA) Negative Urine Ketones 15 Urine Blood Negative Urine Nitrite Negative Ur Leukocyte Esterase Negative Urine Opiates Screen Urine Fentanyl Screen Ur Barbiturates Screen Ur Phencyclidine Scrn Ur Amphetamines Screen U Benzodiazepines Scrn Urine Cocaine Screen U Marijuana (THC) Screen Ethyl Alcohol Influenza Type A (PCR) Influenza Type B (PCR) RSV RNA Qual (PCR) SARS-CoV-2 RNA (RT-PCR) Imaging Diagnostic Imaging Impressions Chest X-Ray 12/17/22 17:19 IMPRESSION: Unremarkable examination. DS: Summary Hospital Course Hospital Course: per 12/19 admission note: ?Met with patient.? Discussed with Nursing.? Admitted with suicidal thoughts.? Placed on one-to-one observation after making statements of actively thinking of suicide and methods while in the hospital. Transgender male to female.? Noted from cares assessment, patient initially presented with chest pain.? When medically cleared there was concerns around suicidal thoughts and subsequently evaluated and admitted.? No active management issues since being on the unit with one-to-one observation since last night. ? Throughout interview patient is vague. Today reports feeling very suicidal for the last 1 week.? Unable to think of a connection or stressor.? However did mention that they have been living at a residential program ([facility]) and their 2 year time.? Is expiring and there is no obvious place for them to transition to.? Reports trying to taper off her medications recently as a did not want to be on medications ? With concerns around weight gain.? Reports they have been suicidal daily for many many years. ? Chronic insomnia i.e. many many years. Describes having PTSD symptoms and borderline personality disorder.? Reports depression has been present for as long as they can remember and never gets better.? Denied psychosis.? Denied HI.? Reported if they were not on one-to-one observation currently they would try to jump off tables and break their neck.? On Suboxone 12 mg daily and sober for 3 years.? Reports last inpatient episode was following a 1 year hospitalization in [facility] and then transition to their current residential program from there.? History of ECT but no benefit.? Reports having an interest in T MS. Never been on Vraylar or Rexulti.? Otherwise has been tried on multiple medication regimens. Socially living at the [facility] program for the last 2 years, ? their time is coming to an end but there is no obvious placed for then to transition to. ? Have DMH and ACCS services.? Also visiting nurse services but unable to explain why but might be related to medication management.? Single.? No children.? No legal issues.? Reports never being able to hold down a job.? GED and some college. Overall we discussed restarting medications, engaging with milieu and safety planning.? Will work with primary team who can liaise with patient's community services and supports and optimize treatment/dispo planning. Past Psychiatric History: Describes having PTSD symptoms and borderline person ality disorder.? Reports depression has been present for as long as they can remember and never gets better.? Denied psychosis.? Denied HI.? Reported if they were not on one-to-one observation currently they would try to jump off tables and break their neck.? On Suboxone 12 mg daily and sober for 3 years.? Reports last inpatient episode was following a 1 year hospitalization in [place] and then transition to their current residential program from there.? History of ECT but no benefit.? Reports having an interest in T MS. Never been on Vraylar or Rexulti.? Otherwise has been tried on multiple medication regimens. Medical Evaluation Reviewed: Yes PMFSH Surgical History? H/O breast augmentation Social History: Socially living at the [facility] for the last 2 years, ? their time is coming to an end but there is no obvious placed for then to transition to. ? Have DMH and ACCSservices.? Also visiting nurse services but unable to explain why but might be related to medication management.? Single.? No children.? No legal issues.? Reports never being able to hold down a job.? GED and some college. Trauma history Substance History: in remission on suboxone Trauma History: yes 12/20: calm, cooperative.? reports recent med changes of reduced klonopin dosing, which she reports was her idea, not her prescriber's.? nevertheless, she reports the prescriber decreased it too rapidly and it has cause her problems.? believes her prescriber's name is noemy, can't recall last name.? says she is not taking prozac and asks the order be DCed.? asks for thorazine PRN agitation, which is done.? also states she does not wish to be taking wellbutrin, so MD agrees to begin taper by decreasing dose to 300 mg daily (from 450).? on being asked for goals of hospitalization and how she knows she will be ready for discharge, she discusses how she does not feel safe at the [facility] and that is smells like . ? she also states she has been having a poor PO intake recently, stating she lost 10 pounds in the week prior to admission via restricting and purging.? pt was asked again about goals of hospitalization and states she doesnot know what they might be, but that she is feeling safer here than at [facility] and that she expects to be here for a long time.? she says she plans to put in a 3-day notice so that she will get committed for 6 months. 12/21: calm, cooperative.? SI continues.? vague regarding goals for hospitalization or what treatment may be helpful for her.? very much aware that DBT is the treatment of choice and states she is very well versed in DBT.? states most of the time she is able to use DBT skills to prevent herself from self-harming, but every now and again it becomes impossible, which is when she seeks hospitalization.? demonstrates long superficial cut on her volar left arm which she reports she did with a dee she as given access to on the unit.? per staff, remains on 1:1 with locked bathroom, restless.? slept on and off.? pacing the halls.? +SI.? denies HI/AVH.? scratching self, used bottle cap in shower to try to harm self.? used dee she was inadvertently given access to to superficially cut her forearm. 12/22: planned DC tomorrow. pt resigned to it, but not happy about it. long mtgs with pt and [facility] payan. 12/23: meeting held with pt, nurse from [facility], and [facility] payan. plan made for pt to D/C to respite from here and to work with RN from [facility] on DBT referral and longer term housing. Time Spent with Patient Time attestation: Total time managing care of this patient today ____ minutes. Time spent: Greater than 30 minutes Discharge Plan Discharge Anticipated Discharge Date/Time: 12/23/22 09:00 Patient Disposition: Home, Self-Care Discharge Diagnosis: Borderline Personality Disorder PTSD, Chronic Referrals: [facility] [Other] - 12/30/22 11:00 am (Suboxone intake appointment) Physician,Unknown J [Primary Care Provider] - 1 Week Discharge Medications: New chlorpromazine 50 mg tablet 50 mg PO BID PRN (Reason: psychosis) 30 Days Qty: 60 0RF Ensure Original Liquid 1 ea PO TID 30 Days Qty: 1422 5RF Continued fluoxetine 40 mg capsule 80 mg PO DAILY spironolactone 100 mg tablet 100 mg PO BID 30 Days Qty: 60 0RF melatonin 3 mg tablet 6 mg PO BEDTIME 30 Days Qty: 60 0RF prazosin 5 mg capsule 10 mg PO BEDTIME 30 Days Qty: 60 0RF trazodone 100 mg tablet 200 mg PO BEDTIME PRN (Reason: insomnia) 30 Days Qty: 60 0RF nicotine (polacrilex) 4 mg gum 4 mg PO Q2H PRN (Reason: Nicotine Cravings) 30 Days Qty: 240 0RF omeprazole 20 mg capsule,delayed release(DR/EC) 20 mg PO QAM 30 Days Qty: 30 0RF estradiol 2 mg tablet 2 mg PO TID 30 Days Qty: 90 0RF bupropion HCl 300 mg tablet extended release 24 hr 300 mg PO QAM 30 Days Qty: 30 0RF buprenorphine-naloxone [Suboxone] 8-2 mg film 1 film sublingual DAILY 7 Days Qty: 7 0RF multivitamin with folic acid [Tab-A-Josef] 400 mcg tablet 1 tab PO DAILY 30 Days Qty: 30 0RF Changed clonazepam 1 mg tablet 1 mg PO DAILY PRN (Reason: Anxiety) 30 Days Qty: 30 0RF buprenorphine-naloxone [Suboxone] 2-0.5 mg film 2 film sublingual DAILY 7 Days Qty: 14 0RF Discontinued hydroxyzine pamoate 50 mg capsule 50 mg PO QID PRN (Reason: anxiety) bupropion HCl 150 mg tablet extended release 24 hr 150 mg PO QAM Discharge Orders: Discharge Order (Routine); Ordered 12/23/22 Ordered By: Shemar Post Diet: Advance to usual diet Activity on Discharge: As tolerated Stand Alone Forms: Patient Portal Discharge page, Community Support Care Plan Goals: remain safe and sober in the outpatient treatment setting Health Concerns: none Plan of Treatment: take medications as prescribed, attend appointments as scheduled. engage in DBT skills group. Assessment: pt is at chronic risk of harm to self due to chronic SI/SIBI in borderline personality disorder. she does not appear to have an active severe axis one disorder which would require inpatient level of care; persons with her pattern of symptoms have been shown to fare worse with longer inpatient stays and better with outpatient therapies, in particular DBT. risk of harm to self fluctuates in relation to psychosocial stressors and is unpredictable. at present, she is assessed as not at risk substantially above baseline of harm to self.
--- NOTE | 2022-12-22 18:26 | PC.NURSE ---
Pt's BP was 94/53 while sitting, spironolactone held
[2022-12-22] MEDS: clonazePAM 1 MG TABLET PO (20:08)
[2022-12-22] MEDS: Melatonin 3 MG TABLET 6 MG PO (21:37)
[2022-12-22] MEDS: Prazosin HCL 5 MG CAPSULE 10 MG PO (21:38)
[2022-12-22 21:41] VITALS: BP 102/60; PULSE 66; TEMP 36.7; O2SAT 94
[2022-12-23 08:40] VITALS: BP 113/60; PULSE 76; TEMP 36.8; O2SAT 98
[2022-12-23] MEDS: estradioL 0.5 MG TABLET 2 MG PO ×2 (08:42→15:38)
[2022-12-23] MEDS: Spironolactone 25 MG TABLET 100 MG PO (08:43)
[2022-12-23] MEDS: Multivitamin TABLET 1 TAB PO (08:43)
[2022-12-23] MEDS: buPROPion HCl XL 300 MG TAB.ER.24H PO (08:44)
[2022-12-23] MEDS: Buprenorphine/Naloxone 8/2 mg FILM 1 FILM SUBLINGUAL (08:44)
[2022-12-23] MEDS: Buprenorphine/Naloxone 2/0.5mg FILM 2 FILM SUBLINGUAL (08:44)
[2022-12-23] MEDS: Omeprazole 20 MG CAPSULE.DR PO (08:44)
[2022-12-23 13:45] LABS: COVID-19 Test Negative (Negative); IDNOW Serial# BCCEAD1C
[2022-12-23] MEDS: clonazePAM 1 MG TABLET PO (15:41)
[2022-12-23] MEDS: Nicotine Polacrilex 2 MG GUM 4 MG BUCCAL (15:42)
== END 2022-12-23 15:45 | disposition home or self-care (01) | DRG 752 ==
LOC: HO.ED 21:00 → HO.PADLT16 12-18 16:20
PROVIDERS: Physician Assistant Medical; Admitting Provider Psychiatry & Neurology Psychiatry; Emergency Provider Emergency Medicine; Visit Provider Psychiatry & Neurology Psychiatry
DX: F60.3 Borderline personality disorder (principal); R45.851 Suicidal ideations; F43.12 Post-traumatic stress disorder, chronic; F11.20 Opioid dependence, uncomplicated; Z20.822 Contact with and (suspected) exposure to COVID-19; Z79.899 Other long term (current) drug therapy
CPT/HCPCS: 0241U; 71046; 80053; 80307; 81003; 82077; 83735; 83880; 84484; 85025; 87635; 93005; 99285; S9485

== ENCOUNTER → 2023-02-10 14:54 | Outpatient (BNVA) | payer OTHER, SELFPAY | PROVIDERS: Visit Provider Nurse Practitioner Psychiatric/Mental Health | DX: F11.20 Opioid dependence, uncomplicated (principal) | CPT/HCPCS: 80305; 99212 ==

== ENCOUNTER → 2023-02-17 15:29 | Outpatient (BNVA) | payer OTHER, SELFPAY | PROVIDERS: PCP Hospitalist; Visit Provider Nurse Practitioner Psychiatric/Mental Health | DX: Z51.81 Encounter for therapeutic drug level monitoring (principal); F11.20 Opioid dependence, uncomplicated | CPT/HCPCS: 99212 ==

== ENCOUNTER → 2023-03-03 14:14 | Outpatient (BNVA) | payer OTHER, SELFPAY | PROVIDERS: PCP Hospitalist; Visit Provider Nurse Practitioner Psychiatric/Mental Health | DX: Z51.81 Encounter for therapeutic drug level monitoring (principal); F11.21 Opioid dependence, in remission | CPT/HCPCS: 80305; 99212 ==

== ENCOUNTER → 2023-03-17 13:13 | Outpatient (BNVA) | payer OTHER, SELFPAY | PROVIDERS: PCP Hospitalist; Visit Provider Nurse Practitioner Psychiatric/Mental Health | DX: Z51.81 Encounter for therapeutic drug level monitoring (principal); F11.21 Opioid dependence, in remission | CPT/HCPCS: 99212 ==

== ENCOUNTER 2023-04-14 13:46 | Outpatient (AMB) | payer OTHER, SELFPAY ==
--- NOTE | 2023-04-14 13:48 | MHC.OFFVIS ---
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 Allergies No Known Allergies Allergy (Verified 04/14/23 13:54) Do you need a note to return to daycare/school/sports/work: No HPI MAT VISIT HPI Details Pt presents for OUD treatment follow up Currently being prescribed Suboxone 20mg QD Reporting some constipation--requesting medication Recently started PREP via PCP No issues or concerns related to recovery or recovery supports [facility] Medical History Opioid use disorder, severe, on maintenance therapy Surgical History H/O breast augmentation Social History Household Members: Other Household Members Other:: lives in a prison Housing: Other Housing Other:: prison Do you presently have visiting nurse or other home services: Yes Alcohol intake: never Patient Tobacco Use Status: Former Tobacco user e-Cigarette/Vaping Use: Never Used Second Hand Smoke Exposure: No Substance Use Type: Former Substance User service: No Current occupational status: disabled Sexual orientation: Don't Know Cognitive needs: No Hearing needs: No Vision needs: No Review of Systems Const Reports as per HPI and Reports no additional complaints Physical Exam Vital Signs: Last Vital Signs Pulse 81 04/14/23 13:53 BP 104/70 04/14/23 13:53 Pulse Ox 98 04/14/23 13:53 Oxygen Delivery Method Room Air 04/14/23 13:53 Const General: cooperative and comfortable Psych Appearance: well kempt Speech and movement: Clear speech present Affect: normal affect Attitude: cooperative Thought process: Normal thought process present Thought content: Normal thought content present Insight: Good insight present (Psych) Judgement: Good judgement present (Psych) Assessment & Plan Assessment & Plan (1) Opioid use disorder, severe, in sustained remission: Code(s): F11.21 - Opioid dependence, in remission Plan: continue suboxone at current dose follow up 4 weeks docusate ordered for constipation Medications: New docusate sodium (Dulcolax Stool Softener (docusate)) 100 mg PO BID PRN 20 caps 0RF constipation Changed From buprenorphine-naloxone 8-2 mg (Suboxone) place each film under tongue 2 film sublingual DAILY 28 days 42 ea 0RF To buprenorphine-naloxone 8-2 mg (Suboxone) place each film under tongue 2 film sublingual DAILY 42 ea 0RF 21 days Refilled buprenorphine-naloxone 4-1 mg (Suboxone) in addition to 16mg. Total of 20mg daily 1 film sublingual Q24H 21 ea 0RF buprenorphine-naloxone 8-2 mg (Suboxone) place each film under tongue 2 film sublingual DAILY 28 days 42 ea 0RF Coding Level of Care Code Est Pt Level 3 (14906) Diagnoses Opioid use disorder, severe, in sustained remission F11.21
[2023-04-14 13:53] VITALS: BP 104/70; PULSE 81; O2SAT 98
== END 2023-04-14 14:07 | disposition home or self-care (01) ==
LOC: HO.HCC 13:46
PROVIDERS: PCP Hospitalist; Visit Provider Nurse Practitioner Psychiatric/Mental Health
DX: F11.21 Opioid dependence, in remission (principal)
CPT/HCPCS: 99213

== ENCOUNTER → 2023-04-14 13:46 | Outpatient (BNVA) | payer OTHER, SELFPAY | PROVIDERS: PCP Hospitalist; Visit Provider Nurse Practitioner Psychiatric/Mental Health | DX: Z51.81 Encounter for therapeutic drug level monitoring (principal); F11.21 Opioid dependence, in remission | CPT/HCPCS: 99212 ==

== ENCOUNTER 2023-05-19 13:38 | Outpatient (AMB) | payer OTHER, SELFPAY ==
--- NOTE | 2023-05-19 13:52 | A.OFFVIS_ITS ---
Intake Vital Signs 05/19/23 14:02 BP 102/70 Blood Pressure Location Lt radial Position Sitting Pulse 99 Pulse Source Pulse Oximeter Pulse Oximetry (%) 99 Oxygen Delivery Method Room Air Intake Visit Reasons: MAT VISIT Intake Note: the patient presents for mat visit Hris Administrator Required: No Allergies No Known Allergies Allergy (Verified 05/19/23 14:04) Do you need a note to return to daycare/school/sports/work: No HPI MAT VISIT HPI Details Pt presents for OUD treatment follow up Currently being prescribed 20 mg daily Denies any side effects related to medication Doing well overall. [facility] Medical History Opioid use disorder, severe, on maintenance therapy Surgical History H/O breast augmentation Social History Household Members: Other Household Members Other:: lives in a [facility] Housing: Other Housing Other:: [facility] Do you presently have visiting nurse or other home services: Yes Alcohol intake: never Patient Tobacco Use Status: Former Tobacco user e-Cigarette/Vaping Use: Never Used Second Hand Smoke Exposure: No Substance Use Type: Former Substance User service: No Current occupational status: disabled Sexual orientation: Don't Know Cognitive needs: No Hearing needs: No Vision needs: No Review of Systems Const Reports as per HPI and Reports no additional complaints Physical Exam Vital Signs: Last Vital Signs Pulse 99 05/19/23 14:02 BP 102/70 05/19/23 14:02 Pulse Ox 99 05/19/23 14:02 Oxygen Delivery Method Room Air 05/19/23 14:02 Const General: cooperative and comfortable Psych Appearance: well kempt Speech and movement: Clear speech present Affect: normal affect Attitude: cooperative Thought process: Normal thought process present Thought content: Normal thought content present Insight: Good insight present (Psych) Judgement: Good judgement present (Psych) Results AMB 14 Panel Urine Drug Screen Urine Marijuana (THC) Negative Last Edit by Rosetta Lewis CMA on 05/19/23 13:56 Urine Cocaine Negative Last Edit by Rosetta Lewis CMA on 05/19/23 13:56 Urine Morphine Negative Last Edit by Rosetta Lewis CMA on 05/19/23 13:56 Urine Methamphetamine Negative Last Edit by Rosetta Lewis CMA on 05/19/23 13:56 Urine Amphetamine Negative Last Edit by Rosetta Lewis CMA on 05/19/23 13:5 6 Urine Benzodiazepine Negative Last Edit by Rosetta Lewis CMA on 05/19/23 13:56 Urine Barbiturates Negative Last Edit by Rosetta Lewis CMA on 05/19/23 13: 56 Urine Methadone Negative Last Edit by Rosetta Lewis CMA on 05/19/23 13:56 Urine Buprenorphine Positive Last Edit by Rosetta Lewis CMA on 05/19/23 13 :56 Urine Tricyclic Antidepressant Negative Last Edit by Rosetta Lewis CMA on 05/19/23 13:56 Urine MDMA Negative Last Edit by Rosetta Lewis CMA on 05/19/23 13:56 Urine Oxycodone Negative Last Edit by Rosetta Lewis CMA on 05/19/23 13:56 Urine Phencyclidine Negative Last Edit by Rosetta Lewis CMA on 05/19/23 13 :56 Urine Propoxyphene Negative Last Edit by Rosetta Lewis CMA on 05/19/23 13: 56 Results Reviewed Results Reviewed: Laboratory Last Values POC Urine Buprenorphine Positive 05/19/23 13:53 POC Urine Morphine Negative 05/19/23 13:53 POC Urine Oxycodone Negative 05/19/23 13:53 POC Urine Methadone Negative 05/19/23 13:53 POC Urine Propoxyphene Negative 05/19/23 13:53 POC Urine Barbiturates Negative 05/19/23 13:53 POC U Tricyclic Antidpr Negative 05/19/23 13:53 POC Urine PCP Negative 05/19/23 13:53 POC Ur Amphetamines Negative 05/19/23 13:53 POC Ur Methamphetamine Negative 05/19/23 13:53 POC Urine MDMA Negative 05/19/23 13:53 POC Ur Benzodiazepine Negative 05/19/23 13:53 POC Urine Cocaine Negative 05/19/23 13:53 POC Ur Marijuana (THC) Negative 05/19/23 13:53 Assessment & Plan Assessment & Plan (1) Opioid use disorder, severe, in sustained remission: Code(s): F11.21 - Opioid dependence, in remission Plan: * continue suboxone at current dose * follow up 4 weeks Orders: Orders AMB 14 Panel Urine Drug Screen 05/19/23 Z51.81 - Encounter for therapeutic drug level monitoring Medications: Refilled buprenorphine-naloxone 4-1 mg (Suboxone) in addition to 16mg. Total of 20mg daily 1 film sublingual Q24H 30 ea 0RF buprenorphine-naloxone 8-2 mg (Suboxone) place each film under tongue 2 film sublingual DAILY 60 ea 0RF Coding Level of Care Code Est Pt Level 3 (15769) Diagnoses Opioid use disorder, severe, in sustained remission F11.21
[2023-05-19 14:02] VITALS: BP 102/70; PULSE 99; O2SAT 99
== END 2023-05-19 14:18 | disposition home or self-care (01) ==
LOC: HO.HCC 13:38
PROVIDERS: PCP Hospitalist; Visit Provider Nurse Practitioner Psychiatric/Mental Health
DX: F11.21 Opioid dependence, in remission (principal)
CPT/HCPCS: 99213

== ENCOUNTER → 2023-05-19 13:38 | Outpatient (BNVA) | payer OTHER, SELFPAY | PROVIDERS: PCP Hospitalist; Visit Provider Nurse Practitioner Psychiatric/Mental Health | DX: Z51.81 Encounter for therapeutic drug level monitoring (principal); F11.21 Opioid dependence, in remission | CPT/HCPCS: 80305; 99212 ==

== ENCOUNTER 2023-06-16 13:24 | Outpatient (AMB) | payer OTHER, SELFPAY ==
--- NOTE | 2023-06-16 13:29 | A.OFFVIS_ITS ---
Intake Vital Signs 06/16/23 13:34 BP 110/68 Blood Pressure Location Lt radial Position Sitting Pulse 93 Pulse Source Pulse Oximeter Pulse Oximetry (%) 97 Oxygen Delivery Method Room Air Intake Visit Reasons: MAT VISIT Intake Note: the patient presents for a mat visit Pattern Finisher Required: No Allergies No Known Allergies Allergy (Verified 06/16/23 13:35) Do you need a note to return to daycare/school/sports/work: No HPI MAT VISIT HPI Details Pt presents for OUD treatment follow up Currently being prescribed Suboxone 20mg daily Denies any side effects related to medication Not feeling well today--no questions or concerns at this time [facility] Medical History Opioid use disorder, severe, on maintenance therapy Surgical History H/O breast augmentation Social History Household Members: Other Household Members Other:: lives in a residential Housing: Other Housing Other:: residential Do you presently have visiting nurse or other home services: Yes Alcohol intake: never Patient Tobacco Use Status: Former Tobacco user e-Cigarette/Vaping Use: Never Used Second Hand Smoke Exposure: No Substance Use Type: Former Substance User service: No Current occupational status: disabled Sexual orientation: Don't Know Cognitive needs: No Hearing needs: No Vision needs: No Review of Systems Const Reports as per HPI and Reports no additional complaints Physical Exam Vital Signs: Last Vital Signs Pulse 93 06/16/23 13:34 BP 110/68 06/16/23 13:34 Pulse Ox 97 06/16/23 13:34 Oxygen Delivery Method Room Air 06/16/23 13:34 Const General: cooperative and comfortable Psych Appearance: well kempt Speech and movement: Clear speech present Affect: normal affect Attitude: cooperative Thought process: Normal thought process present Thought content: Normal thought content present Insight: Good insight present (Psych) Judgement: Good judgement present (Psych) Assessment & Plan Assessment & Plan (1) Opioid use disorder, severe, in sustained remission: Code(s): F11.21 - Opioid dependence, in remission Plan: * continue suboxone at current dose * follow up 4 weeks Medications: Refilled buprenorphine-naloxone 4-1 mg (Suboxone) in addition to 16mg. Total of 20mg daily 1 film sublingual Q24H 30 ea 0RF buprenorphine-naloxone 8-2 mg (Suboxone) place each film under tongue 2 film sublingual DAILY 60 ea 0RF Coding Level of Care Code Est Pt Level 3 (78348) Diagnoses Opioid use disorder, severe, in sustained remission F11.21
[2023-06-16 13:34] VITALS: BP 110/68; PULSE 93; O2SAT 97
== END 2023-06-16 13:53 | disposition home or self-care (01) ==
PROVIDERS: PCP Hospitalist; Visit Provider Nurse Practitioner Psychiatric/Mental Health
DX: F11.21 Opioid dependence, in remission (principal)
CPT/HCPCS: 99213

== ENCOUNTER → 2023-06-16 13:24 | Outpatient (BNVA) | payer OTHER, SELFPAY | PROVIDERS: PCP Hospitalist; Visit Provider Nurse Practitioner Psychiatric/Mental Health | DX: F11.20 Opioid dependence, uncomplicated (principal) | CPT/HCPCS: 99212 ==

== ENCOUNTER 2023-07-19 13:20 | Inpatient (IN) | payer OTHER, SELFPAY ==
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
[2023-07-19 13:45] VITALS: BP 100/63; BP 122/74; PULSE 104; PULSE 95; RESP 18; TEMP 36.4; O2SAT 97; O2SAT 98; BMI 23.1
--- NOTE | 2023-07-19 14:00 | MHC.EDTECH ---
T/w told pt after changeover that there were labs ordered and a tech would go to their room for bloodwork. Pt asked if we could do the labs their doctor ordered, pt was specifically looking for an HIV test. Pt was informed that was not the labs we would be collecting, and the pt refused bloodwork. T/w clarified this while obtaining covid swab, pt still refused.
[2023-07-19 14:04] LABS: Appearance Urine Clear; Color Urine Dark Yellow; Glucose Urine UA Negative (Negative); Leukocyte Esterase Urine Negative (Negative); Nitrite Urine Negative (Negative); PH 5.5 (5.0-9.0); Specific Gravity - Urine >= 1.030 (1.005-1.025); Urine Blood Negative (Negative); Urine Ketones Trace mg/dL (Negative); Urine Protein Negative (Neg-Trace)
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
[2023-07-19 14:11] LABS: Amphetamine Screen Urine POSITIVE (Not Detect); Barbiturates, Urine Not Detected (Not Detect); Benzodiazepines Screen Urine POSITIVE (Not Detect); Cannabinoid Screen Urine Not Detected (Not Detect); Cocaine Screen Urine Not Detected (Not Detect); Fentanyl, urine Not Detected (Not Detect); Opiate Screen Urine Not Detected (Not Detect); Phencyclidine Screen Urine Not Detected (Not Detect)
[2023-07-19 14:18] LABS: COVID-19 Test Negative (Negative); IDNOW Serial# 08D9AD1C
--- NOTE | 2023-07-19 17:43 | PC.NURSE ---
care team inquired in regard to patients lab draw, which client had declined upon arrival. initially client had asked about hiv testing, but the tests we draw were reviewed with the client and client had declined.
--- NOTE | 2023-07-19 18:23 | MHC.CARE ---
DONALD contacted [facility] to inquire as to the availability of [facility] beds. [facility] Beds are available but they are not accepting pts this evening. [facility] advised CARE Team to call tomorrow morning.
--- NOTE | 2023-07-19 18:26 | PC.NURSE ---
client once again asked to provide lab sample and client declined
--- NOTE | 2023-07-19 19:45 | PC.NURSE ---
provider approached t/w in regards to completing ekg with patient, patient approached and declines this also.
--- NOTE | 2023-07-19 19:47 | MHC.EDTECH ---
Patient refused EKG. Nurse aware.
--- NOTE | 2023-07-19 21:01 | PC.NURSE ---
patient continues to decline labs and ekg
[2023-07-19 21:04] VITALS: BP 107/61; PULSE 62; RESP 16; TEMP 36.5; O2SAT 97
[2023-07-19] MEDS: Melatonin 3 MG TABLET 6 MG PO (21:07)
[2023-07-19] MEDS: estradioL 0.5 MG TABLET 2 MG PO (21:07)
[2023-07-19] MEDS: Spironolactone 25 MG TABLET 100 MG PO (21:07)
[2023-07-19] MEDS: traZODone HCL 100 MG TABLET 200 MG PO (21:07)
[2023-07-19] MEDS: Prazosin HCL 5 MG CAPSULE 10 MG PO (21:08)
--- NOTE | 2023-07-19 23:25 | PC.NURSE ---
this rn assumed care of pt. pt sleeping at this time, respirations even and unlabored. per previous RN pt refusing all interventions, will reassess in am.
--- NOTE | 2023-07-20 | ECG_ITS ---
Test Reason : MED CLEAR Blood Pressure : / mmHG Vent. Rate : 060 BPM Atrial Rate : 060 BPM P-R Int : 158 ms QRS Dur : 090 ms QT Int : 430 ms P-R-T Axes : 066 082 057 degrees QTc Int : 430 ms Normal sinus rhythm Normal ECG When compared with ECG of 17-DEC-2022 17:39, No significant change was found Referred By: Emely Barrett Electronically Signed By:DANIEL VERDIN MD
--- NOTE | 2023-07-20 01:03 | MHC.EDTECH ---
Plan of care is on going Patient is resting in bed Respirations even and unlabored No distress noted at this time
--- NOTE | 2023-07-20 01:51 | PC.NURSE ---
pt sleeping, respirations even and unlabored. [address] at this time.
--- NOTE | 2023-07-20 03:23 | PC.NURSE ---
pt sleeping on side in bed, respirations even and unlabored, no apparent distress. [address]
--- NOTE | 2023-07-20 05:18 | PC.NURSE ---
pt sleeping on back, respirations even and unlabored. [address]
[2023-07-20 06:37] VITALS: RESP 16
--- NOTE | 2023-07-20 06:37 | PC.NURSE ---
Addendum entered by Melissa Adan 07/20/23 06:39: pt stating she will take her medication later. Original Note: pt refusing 0630 medication and vital signs. pt resting in bed, no apparent distress. pt denies pain. pt denies thoughts of self harm, SI/HI.
--- NOTE | 2023-07-20 07:30 | MHC.CARE ---
Referrals sent to [facility]. [facility] called to activate the referral.
--- NOTE | 2023-07-20 08:55 | PHA.MEDREC ---
Pharmacy Consult ? Medication Reconciliation Pharmacy has completed the medication reconciliation.Completed by RN reviewed by pharmacy Harry
--- NOTE | 2023-07-20 10:03 | MHC.CARE ---
Addendum entered by Ana Luisa Sibley [facility] 07/20/23 10:05: Komal Baires [phone] Original Note: Komal Baires [facility] clinician called for update on pts status. She is requesting a call when pt is placed.
[2023-07-20 10:15] VITALS: BP 100/59; PULSE 95; RESP 16; TEMP 36.2; O2SAT 98
[2023-07-20] MEDS: estradioL 0.5 MG TABLET 2 MG PO ×2 (10:20→20:01)
[2023-07-20] MEDS: Spironolactone 25 MG TABLET 100 MG PO (10:21)
[2023-07-20] MEDS: Buprenorphine/Naloxone 4/1 mg FILM 1 FILM SUBLINGUAL (10:21)
[2023-07-20] MEDS: buPROPion HCl XL 150 MG TAB.ER.24H PO (10:21)
[2023-07-20] MEDS: buPROPion HCl XL 300 MG TAB.ER.24H PO (10:21)
[2023-07-20] MEDS: Buprenorphine/Naloxone 8/2 mg FILM 2 FILM SUBLINGUAL (10:21)
[2023-07-20] MEDS: Emtricitabin/Tenofovir 200/300 TABLET 1 TAB PO (12:02)
[2023-07-20] MEDS: Amphetamine Mixed Salts 20 MG TABLET PO (12:02)
--- NOTE | 2023-07-20 12:03 | MHC.CARE ---
Pt referral and accompanying information resubmitted to [facility] via fax and email. N reports not getting the initial referral.
[2023-07-20 12:21] LABS: Basophils Percent Auto 0.5 % (0-2); Eosinophils Absolute Auto 0.6 X10*3/uL (0.0-0.4); Eosinophils Percent Auto 9.6 % (0-4); Hematocrit 41.2 % (42.0-52.0); Hemoglobin 14.3 g/dl (14.0-18.0); Imm Gran Abs Auto 0.01 X10*3/uL (0.00-0.03); Imm Gran Pct Auto 0.2 % (0.0-0.4); Lymphocytes Absolute Auto 1.4 X10*3/uL (1.2-4.9); Lymphocytes Percent Auto 22.7 % (20-40); MANUAL DIFF FLAG SCAN; Mean Corpuscular HGB Conc 34.7 g/dl (31.0-36.0); Mean Corpuscular Hemoglobin 30.5 pg (27.0-33.0); Mean Corpuscular Volume 87.8 fL (80.0-98.0); Monocytes Absolute Auto 0.5 X10*3/uL (0.1-1.2); Monocytes Percent Auto 7.7 % (2-11); Neutrophils Absolute Auto 3.6 x10*3/uL (2.0-8.3); Neutrophils Percent Auto 59.3 % (45-73); PLT CLUMP 1; Red Blood Count 4.69 X10*6/uL (4.60-5.80); Red Cell Distribution Width 12.2 % (11.0-16.0); SCAN SMEAR FLAG 1
[2023-07-20 12:23] LABS: White Blood Count 6.1 X10*3/uL (4.8-10.8)
[2023-07-20 12:25] LABS: Acetaminophen LAB < 3 mcg/mL (<30); Alanine Aminotransferase 23 U/L (0-40); Alkaline Phosphatase 52 U/L (39-117); Anion Gap 11 (12-20); Aspartate Amino Transferase 25 U/L (5-37); Bilirubin Total 0.5 mg/dL (0.0-1.0); Blood Urea Nitrogen 17 mg/dL (9-16); Calcium 9.2 mg/dL (8.4-10.2); Carbon Dioxide 29 mmol/L (22-29); Chloride 104 mmol/L (96-108); Creatinine Clr Calc Pharmacy 114.7; Estimated Glomerular Filt Rate > 60; Ethanol < 10 mg/dL; Glucose Random 109 mg/dL (60-115); Potassium 4.6 mmol/L (3.3-5.1); Salicylate < 5.0 mg/dL (15-30); Sodium 139 mmol/L (135-145); Total Protein 7.3 g/dL (6.5-8.0)
[2023-07-20 12:43] LABS: Platelet Count 175 X10*3/uL (160-400)
[2023-07-20 12:44] LABS: SLIDE REVIEW VERIFIED
--- NOTE | 2023-07-20 13:48 | MHC.CARE ---
CARE Team speaks with Marisa Louise at [facility].? Ms. Louise was advised that pts information had been faxed earlier this morning.? [facility] stated they had not received the paperwork.? Paperwork was faxed again and failed.? Paperwork was emailed this time. [facility] confirms receiving pt?s referral and are reviewing it.
--- NOTE | 2023-07-20 13:52 | MHC.CARE ---
CARE Team speaks with Marisa Louise at [facility] again.? Ms. Louise called and advised CARE Team that they and not yet received the referral.? [facility] advises CARE Team that the [facility] email is not working and that they had just received a fax so they believe their fax is working.? CARE Team has refaxed the referral packet.?
--- NOTE | 2023-07-20 14:33 | MHC.CARE ---
CARE Team calls [facility] to follow up on the referral sent. [facility] advises CARE Team that [facility] ACCS nursing called [facility] to confirm medication and was advised that pt has been accepted to [facility]'s ACCS. CARE Team calls [facility] to confirm this and is advised that pt has not been accepted. CARE Team calls [facility] and advises them that pt has not been accepted and pt should still be considered.
--- NOTE | 2023-07-20 14:36 | MHC.CARE ---
CARE Team is contacted by Paris Rose ([facility]), she stated that she has not received any referrals for pt. Ms. Aram Quach has been advised that referrals were faxed 3 times today beginning at approximately 0630 hours and an email with the referral was sent as well. She reports that her email and fax is in good working order. CARE Team emails pts assessment and the [facility] referral as requested. While this is being done, CARE Team was advised that pt made a suicidal gesture via wrapping medical tape around her neck. [facility] CCS advised of this incident.
--- NOTE | 2023-07-20 14:36 | MHC.CARE ---
lvm with Kenzie Mosquera of [facility] ACCS team [phone] regarding support/ assistance with placing patient on [facility]CS unit, to discuss barriers CARE is encountering.
--- NOTE | 2023-07-20 15:18 | PC.NURSE ---
Patient came to hospital with self induced lacerations on left arm and requested them to be re-covered. This hand sign writer went in to patient to wrap their arm. The hand sign writer left the room and patient had taken ahold of bandage tape without hand sign writer noticing. The tech saw that patient started to wrap tape around her neck and called second nurse to intervene. Staff was able to remove tape from patients neck and patient was placed on 1:1. While tech was observing patient the patient stated they were going to jump off of the bed and tech asked patient to stop. Patient attempted to jump off the bed and when tech intervened the patient jumped onto the tech. Security was called as well as other assistive staff and patient was restrained. Patient put into velcro restraints on all four limbs at 14:50. BP immediately after placing restraints 128/69, R17, P 87, O2 97%. Patient was then able to remove one hand from the restraints and said this isn't over. As soon as I am out of these restraints I am going to jump. Security and techs were able to get hand back into restraint. notified.
--- NOTE | 2023-07-20 17:20 | MHC.CARE ---
CARE Team reaches out to [facility] supervisor assembly stock, Valeriano Armstrong via email asking for [facility] to contact CARE Team tomorrow to collaborate on a safe discharge plan for pt.
[2023-07-20 17:31] VITALS: BP 128/69; PULSE 87; RESP 18; O2SAT 97
--- NOTE | 2023-07-20 17:32 | PC.NURSE ---
Patient continues to be uncooperative, agitated and refusing vital signs. Patient remains 1:1 still in four point restraints.
--- NOTE | 2023-07-20 18:06 | PC.NURSE ---
patient stated at 18:05 not to let her out restraints for at least another hour and said she would hurt herself once released from restraints.
[2023-07-20] MEDS: LORazepam 2 MG/ML VIAL IM (18:35)
[2023-07-20] MEDS: diphenhydrAMINE HCL 50 MG/ML VIAL IM (18:35)
[2023-07-20] MEDS: Haloperidol Lactate 5 MG/ML VIAL IM (18:35)
--- NOTE | 2023-07-20 18:38 | PC.NURSE ---
Patient requested Sedating medications , provider consulted. Patient offered benadryl, haldol and ativan PO. Patient refused and said I will not take those you will need to inject me . MD consulted and ordered IM route. Given to patient. Patient continues to be in restraints at this time. Patient says I will not be safe if you let me out .
--- NOTE | 2023-07-20 18:53 | PC.NURSE ---
Patient in restraints since 14:50. IM medications given per request. Restraints removed at 16:50.
[2023-07-20 19:45] VITALS: BP 93/48; PULSE 64; RESP 18; TEMP 36.6; O2SAT 95
[2023-07-20] MEDS: chlorproMAZINE HCl 100 MG TABLET PO (20:01)
[2023-07-20] MEDS: traZODone HCL 100 MG TABLET 200 MG PO (20:01)
[2023-07-20] MEDS: Melatonin 3 MG TABLET 6 MG PO (20:02)
[2023-07-20] MEDS: clonazePAM 1 MG TABLET PO (20:08)
--- NOTE | 2023-07-21 06:18 | PC.NURSE ---
Patient slept through the night, compliant with HS medication, no distress observed/reported, contracted for the safety, patient restraint discontinued at 1900, ROM intact, showered immediately after release from restraint, ate his supper, disposition per care team is voluntary inpatient bed search, labs completed/resulted. EKG completed/reviewed by provider, vss, will continue to monitor.
--- NOTE | 2023-07-21 07:02 | PC.NURSE ---
patient appears to remain asleep at this time patient appears in no distress
[2023-07-21] MEDS: estradioL 0.5 MG TABLET 2 MG PO ×3 (08:27→20:08)
[2023-07-21] MEDS: Spironolactone 25 MG TABLET 100 MG PO (08:28)
[2023-07-21] MEDS: buPROPion HCl XL 300 MG TAB.ER.24H PO (08:28)
[2023-07-21] MEDS: Emtricitabin/Tenofovir 200/300 TABLET 1 TAB PO (08:28)
[2023-07-21] MEDS: Amphetamine Mixed Salts 20 MG TABLET PO (08:28)
[2023-07-21] MEDS: Buprenorphine/Naloxone 8/2 mg FILM 2 FILM SUBLINGUAL (08:28)
[2023-07-21] MEDS: Buprenorphine/Naloxone 4/1 mg FILM 1 FILM SUBLINGUAL (08:28)
[2023-07-21] MEDS: buPROPion HCl XL 150 MG TAB.ER.24H PO (08:28)
[2023-07-21] MEDS: chlorproMAZINE HCl 25 MG TABLET 50 MG PO (15:05)
[2023-07-21] MEDS: clonazePAM 1 MG TABLET PO (15:06)
[2023-07-21] MEDS: hydrOXYzine HCL 50 MG TABLET PO (15:06)
[2023-07-21] MEDS: traZODone HCL 100 MG TABLET 200 MG PO (20:09)
[2023-07-21] MEDS: Melatonin 3 MG TABLET 6 MG PO (20:09)
[2023-07-21] MEDS: chlorproMAZINE HCl 100 MG TABLET PO (20:09)
[2023-07-21 20:14] VITALS: RESP 16
--- NOTE | 2023-07-21 22:50 | PC.NURSE ---
Patient remained in his room appears sleeping at this time, refused VS assessment, held HS Prrazosin and [place] because normally runs low ON BP in the evening and patient was fine with it, compliant with rest of his medication, disposition unchanged, voluntary inpatient bed search, labs completed/resulted, will continue to monitor.
[2023-07-22 06:42] VITALS: RESP 16
--- NOTE | 2023-07-22 07:15 | PC.NURSE ---
patient appears to remain asleep at present respirations are even and unlabored patient appears in no distress
[2023-07-22] MEDS: Emtricitabin/Tenofovir 200/300 TABLET 1 TAB PO (12:06)
[2023-07-22] MEDS: Spironolactone 25 MG TABLET 100 MG PO (12:06)
[2023-07-22] MEDS: Amphetamine Mixed Salts 20 MG TABLET PO (12:07)
[2023-07-22] MEDS: Buprenorphine/Naloxone 8/2 mg FILM 2 FILM SUBLINGUAL (12:07)
[2023-07-22] MEDS: estradioL 0.5 MG TABLET 2 MG PO ×3 (12:08→21:21)
[2023-07-22] MEDS: buPROPion HCl XL 150 MG TAB.ER.24H PO (12:08)
[2023-07-22] MEDS: buPROPion HCl XL 300 MG TAB.ER.24H PO (12:08)
[2023-07-22] MEDS: Buprenorphine/Naloxone 4/1 mg FILM 1 FILM SUBLINGUAL (12:08)
[2023-07-22] MEDS: hydrOXYzine HCL 50 MG TABLET PO (17:03)
[2023-07-22] MEDS: chlorproMAZINE HCl 25 MG TABLET 50 MG PO (17:03)
[2023-07-22] MEDS: clonazePAM 1 MG TABLET PO (17:03)
--- NOTE | 2023-07-22 18:54 | PC.NURSE ---
patient signed cv to go to [facility]
--- NOTE | 2023-07-22 19:45 | PC.NURSE ---
per care team, pt will not go to [address], there are no open female beds. pt not yet aware
[2023-07-22 21:00] VITALS: RESP 18
[2023-07-22] MEDS: Melatonin 3 MG TABLET 6 MG PO (21:21)
[2023-07-22] MEDS: traZODone HCL 100 MG TABLET 200 MG PO (21:21)
[2023-07-22] MEDS: chlorproMAZINE HCl 100 MG TABLET PO (21:21)
--- NOTE | 2023-07-22 21:27 | PC.NURSE ---
pt refused vitals prior to medication administration. BP medications held at this time
--- NOTE | 2023-07-23 02:17 | PC.NURSE ---
pt resting comfortably in bed with eyes closed, breathing even and unlabored. no apparent distress noted.
[2023-07-23 06:05] VITALS: RESP 12
--- NOTE | 2023-07-23 06:05 | PC.NURSE ---
pt refused vital signs and medication at this time
--- NOTE | 2023-07-23 06:06 | MHC.EDTECH ---
This tech attempted to measure vital signs at 06:04. Patient refused measurement of blood pressure, pulse oximetry, and temperature. Patient was not happy to be woken up. Respiratory rate was 12 breaths per minute.
[2023-07-23] MEDS: Amphetamine Mixed Salts 20 MG TABLET PO (08:31)
[2023-07-23] MEDS: Emtricitabin/Tenofovir 200/300 TABLET 1 TAB PO (08:31)
[2023-07-23] MEDS: buPROPion HCl XL 150 MG TAB.ER.24H PO (08:31)
[2023-07-23] MEDS: Spironolactone 25 MG TABLET 100 MG PO ×2 (08:31→20:17)
[2023-07-23] MEDS: buPROPion HCl XL 300 MG TAB.ER.24H PO (08:31)
[2023-07-23] MEDS: estradioL 0.5 MG TABLET 2 MG PO ×3 (08:32→20:18)
[2023-07-23] MEDS: Buprenorphine/Naloxone 4/1 mg FILM 1 FILM SUBLINGUAL (08:32)
[2023-07-23] MEDS: Buprenorphine/Naloxone 8/2 mg FILM 2 FILM SUBLINGUAL (08:32)
[2023-07-23] MEDS: chlorproMAZINE HCl 25 MG TABLET 50 MG PO (11:44)
[2023-07-23] MEDS: clonazePAM 1 MG TABLET PO (11:44)
[2023-07-23] MEDS: hydrOXYzine HCL 50 MG TABLET PO (14:39)
--- NOTE | 2023-07-23 17:21 | PC.NURSE ---
Patient was pacing in hallway and appeared anxious. Patient was asked if they were feeling anxious and they said yes. Patient requested PRN medication which had a positive effect. Patient went into her room and was resting comfortably. Patient sleeping in bed in their room at the time of this note.
--- NOTE | 2023-07-23 19:21 | PC.NURSE ---
patient appears to remain at rest at present respirations are even and unlabored patient appears in no distress
[2023-07-23] MEDS: Melatonin 3 MG TABLET 6 MG PO (20:17)
[2023-07-23] MEDS: traZODone HCL 100 MG TABLET 200 MG PO (20:18)
[2023-07-23] MEDS: chlorproMAZINE HCl 100 MG TABLET PO (20:18)
[2023-07-23 20:50] VITALS: BP 123/52; PULSE 101; TEMP 36.3
--- NOTE | 2023-07-24 01:11 | PC.ADMIT ---
A white, Singaporean-speaking pt aged 33 years, assigned male at , now identifying as female, [facility] at 2030 following referral from [facility] and CARE Team. Pt prefers She/Her pronouns. Pt is known to CARE Team from prior assessments and was previously admitted to [facility]. Pt has a history of psychiatric and substance IPLOC and medication noncompliance. Pt has a history of suicide attempts, PTSD, trauma and borderline personality d/o. Pt was transported via EMS to [facility] on 07/19/23 following pt being found to be engaging in self-harming behaviors, cutting with piece of soda can. Pt reports increased stress r/t an upcoming transfer to a [facility] that she does not feel ready for. Pt was initially found to not be in need of IPLOC by CARE Team, but was reassessed after a four-hour mechanical restraint on 07/20/23 and found to be in need of IPLOC. Pt reported passive SI at my baseline , but says can seek out staff for help if needed. Pt denies HI, AVH. Pt reports poor sleep with night time PTSD symptoms helped by prazosin. Pt rates anxiety and depression at 9-10/10. Pt reports a trauma history and a history of treatment for PTSD. UTOX was positive for amphetamines and benzodiazepines, which pt says are prescribed to her. Pt denies medical issues at this time. [id number] done, admission orders obtained and initial treatment plan done, but needs to be signed. Safety tool is not done. Pt is resting in room at this time.
[2023-07-24] MEDS: Emtricitabin/Tenofovir 200/300 TABLET 1 TAB PO (08:34)
[2023-07-24] MEDS: Buprenorphine/Naloxone 4/1 mg FILM 1 FILM SUBLINGUAL (08:34)
[2023-07-24] MEDS: Amphetamine Mixed Salts 20 MG TABLET PO (08:34)
[2023-07-24] MEDS: Buprenorphine/Naloxone 8/2 mg FILM 2 FILM SUBLINGUAL (08:34)
[2023-07-24] MEDS: estradioL 0.5 MG TABLET 2 MG PO ×3 (08:34→22:10)
[2023-07-24] MEDS: buPROPion HCl XL 150 MG TAB.ER.24H PO (08:35)
[2023-07-24] MEDS: buPROPion HCl XL 300 MG TAB.ER.24H PO (08:35)
[2023-07-24] MEDS: Omeprazole 20 MG CAPSULE.DR PO (08:35)
[2023-07-24] MEDS: Spironolactone 25 MG TABLET 100 MG PO ×2 (08:35→22:09)
[2023-07-24 08:45] VITALS: BP 104/54; PULSE 128; RESP 18; TEMP 36.1; O2SAT 98
[2023-07-24] MEDS: Magnesium Hydrox/Alum Hydrox 30 ML ORAL.SUSP PO (10:55)
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
[2023-07-24] MEDS: clonazePAM 1 MG TABLET PO (13:31)
[2023-07-24] MEDS: hydrOXYzine HCL 25 MG TABLET PO (13:31)
[2023-07-24] MEDS: chlorproMAZINE HCl 100 MG TABLET PO (22:09)
[2023-07-24] MEDS: Prazosin HCL 5 MG CAPSULE 10 MG PO (22:10)
[2023-07-24] MEDS: Melatonin 3 MG TABLET 6 MG PO (22:10)
[2023-07-24 22:36] VITALS: BP 131/73
[2023-07-25 08:30] VITALS: BP 94/57; PULSE 104; RESP 16; TEMP 36.8; O2SAT 97
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
[2023-07-25] MEDS: Buprenorphine/Naloxone 8/2 mg FILM 2 FILM SUBLINGUAL (09:30)
[2023-07-25] MEDS: Buprenorphine/Naloxone 4/1 mg FILM 1 FILM SUBLINGUAL (09:30)
[2023-07-25] MEDS: Amphetamine Mixed Salts 20 MG TABLET PO (09:31)
[2023-07-25] MEDS: buPROPion HCl XL 300 MG TAB.ER.24H PO (09:31)
[2023-07-25] MEDS: buPROPion HCl XL 150 MG TAB.ER.24H PO (09:31)
[2023-07-25] MEDS: Emtricitabin/Tenofovir 200/300 TABLET 1 TAB PO (09:31)
[2023-07-25] MEDS: estradioL 0.5 MG TABLET 2 MG PO ×3 (09:31→21:19)
[2023-07-25] MEDS: Spironolactone 25 MG TABLET 100 MG PO ×2 (09:31→23:03)
[2023-07-25] MEDS: clonazePAM 1 MG TABLET PO ×2 (11:58→13:20)
[2023-07-25 16:45] VITALS: BP 91/53; PULSE 90; RESP 16; TEMP 36.3; O2SAT 97
[2023-07-25] MEDS: chlorproMAZINE HCl 100 MG TABLET PO (21:19)
[2023-07-25] MEDS: traZODone HCL 100 MG TABLET 200 MG PO (21:20)
[2023-07-25] MEDS: Melatonin 3 MG TABLET 6 MG PO (21:20)
[2023-07-25] MEDS: Prazosin HCL 5 MG CAPSULE 10 MG PO (21:20)
[2023-07-26 07:29] LABS: HIV Num 1 2.21 S/CO (0.00-0.99)
[2023-07-26 08:31] LABS: HIV AB/AG Nonreactive (Nonreactive); HIV Num 2 0.08 S/CO; HIV Num 3 0.07 S/CO
[2023-07-26] MEDS: estradioL 0.5 MG TABLET 2 MG PO ×3 (09:18→22:03)
[2023-07-26] MEDS: Spironolactone 25 MG TABLET 100 MG PO ×2 (09:18→22:04)
[2023-07-26] MEDS: Amphetamine Mixed Salts 20 MG TABLET PO (09:18)
[2023-07-26] MEDS: buPROPion HCl XL 150 MG TAB.ER.24H PO (09:19)
[2023-07-26] MEDS: buPROPion HCl XL 300 MG TAB.ER.24H PO (09:19)
[2023-07-26] MEDS: Emtricitabin/Tenofovir 200/300 TABLET 1 TAB PO (09:19)
[2023-07-26] MEDS: Buprenorphine/Naloxone 8/2 mg FILM 2 FILM SUBLINGUAL (09:21)
[2023-07-26] MEDS: Buprenorphine/Naloxone 4/1 mg FILM 0.5 FILM SUBLINGUAL (09:22)
--- NOTE | 2023-07-26 09:27 | P.PNPSI_ITS ---
Subjective Subjective Date of Service: 07/26/23 Reason For Visit: SI Interim History: Met with patient; discussed with team Patient reports that she is doing okay and feeling safe and comfortable on the unit. No urges to self-harm. Patient says she is not quite at baseline but is doing better and approaching baseline which she can tell because of the quality of the internal dialogue... Not too intrusive... Not too overwhelming. Patient shared about history of therapy which she says has overall been very helpful; she said DBT probably saved me from myself... In a tangible way and sites how helpful these coping skills have been for her. Discussed aftercare and patient said that if the intermediate were ready today she will be ready to discharge to it. She says she is going to focus on being optimistic about this opportunity. Human Resource Intern and patient addressed specific items which would alleviate stress regarding discharge and included knowing the names of her prescribers and confirming that they will continue to prescribe medication; patient agreed to sign release of information to send labs back to her PCP. Also patient wants help getting therapy appointment reestablished. Mental Status Exam Mental Status Exam Narrative: Pt is alert and oriented; behavior is cooperative, friendly and calm; patient is not in distress; dressed in casual attire, unkempt hair, cloths, adequate hygiene; mood is described as okay and affect congruent; eye contact appropriate; Speech is normal rate, volume and prosody and not pressured; no psychomotor agitation/retardation present; thought process is organized and goal directed; Thought content is on tx, aftercare; otherwise pertinent to relevant topics and without any delusional content, paranoid ideations or grandiosity; intermittent passive SI but no active, plans or intent; no HI. There is no evidence of perceptual disturbance. Patients insight and judgment fair, at baseline and adequate Diagnostics Vital Signs (24Hr): Vital Signs - 24 hr 07/25/23 16:45 Temperature 97.4 F Pulse Rate 90 Respiratory Rate 16 Blood Pressure 91/53 L Pulse Oximetry 97 BMI result Body Mass Index 23.1 Labs 07/20/23 11:58 07/20/23 11:58 Labs: Laboratory Results - last 48 hr 07/25/23 14:56 HIV 1&2 Ab/P24 Ag 4thGn Nonreactive Medications Medications Current Medications Acetaminophen (Acetaminophen 325 Mg Tablet) 650 mg PO Q6H PRN PRN Reason: Headache/Pain Mild Scale (1-3) Al Hydroxide/Mg Hydroxide (Magnesium Hydrox/Alum Hydrox 30 Ml Oral.Susp) 30 ml PO Q6H PRN PRN Reason: Heartburn/Nausea Last Admin: 07/24/23 10:55 Dose: 30 ml Amphetamine/Dextroamphetamine (Amphetamine Mixed Salts 20 Mg Tablet) 20 mg PO DAILY [facility] Last Admin: 07/25/23 09:31 Dose: 20 mg Benztropine Mesylate (Benztropine Mesylate 0.5 Mg Tablet) 0.5 mg PO DAILY PRN PRN Reason: shakiness Buprenorphine/Naloxone (Buprenorphine/Naloxone 8/2 Mg Film) 2 film SUBLINGUAL DAILY [facility] Last Admin: 07/25/23 09:30 Dose: 2 film Buprenorphine/Naloxone (Buprenorphine/Naloxone 4/1 Mg Film) 0.5 film SUBLINGUAL DAILY [facility] Bupropion HCl (Bupropion Hcl Xl 150 Mg Tab.Er.24h) 150 mg PO DAILY [facility] Last Admin: 07/25/23 09:31 Dose: 150 mg Bupropion HCl (Bupropion Hcl Xl 300 Mg Tab.Er.24h) 300 mg PO DAILY [facility] Last Admin: 07/25/23 09:31 Dose: 300 mg Chlorpromazine HCl (Chlorpromazine Hcl 25 Mg Tablet) 50 mg PO BID PRN PRN Reason: psychosis Last Admin: 07/23/23 11:44 Dose: 50 mg Chlorpromazine HCl (Chlorpromazine Hcl 100 Mg Tablet) 100 mg PO BEDTIME [facility] Last Admin: 07/25/23 21:19 Dose: 100 mg Clonazepam (Clonazepam 1 Mg Tablet) 2 mg PO DAILY PRN PRN Reason: anixety Docusate Sodium (Docusate Sodium 100 Mg Capsule) 100 mg PO BID PRN PRN Reason: for constipation Emtricitabine/Tenofovir (Emtricitabin/Tenofovir 200/300 Tablet) 1 tab PO DAILY [facility] Last Admin: 07/25/23 09:31 Dose: 1 tab Estradiol (Estradiol 0.5 Mg Tablet) 2 mg PO TID [facility] Last Admin: 07/25/23 21:19 Dose: 2 mg Famotidine (Famotidine 20 Mg Tablet) 20 mg PO BID PRN PRN Reason: GERD Hydroxyzine HCl (Hydroxyzine Hcl 25 Mg Tablet) 25 mg PO Q6H PRN PRN Reason: Anxiety Last Admin: 07/24/23 13:31 Dose: 25 mg Magnesium Hydroxide (Milk Of Magnesia 30 Ml Oral.Susp) 30 ml PO DAILY PRN PRN Reason: Constipation Melatonin (Melatonin 3 Mg Tablet) 6 mg PO BEDTIME [facility] Last Admin: 07/25/23 21:20 Dose: 6 mg Nicotine Polacrilex (Nicotine Polacrilex 2 Mg Gum) 4 mg BUCCAL Q2H PRN PRN Reason: Nicotine Cravings Nicotine Polacrilex (Nicotine Polacrilex 2 Mg Gum) 4 mg BUCCAL Q2H PRN PRN Reason: Nicotine Cravings Prazosin HCl (Prazosin Hcl 5 Mg Capsule) 10 mg PO BEDTIME [facility]; Protocol Last Admin: 07/25/23 21:20 Dose: 10 mg Spironolactone (Spironolactone 25 Mg Tablet) 100 mg PO BID [facility]; Protocol Last Admin: 07/25/23 23:03 Dose: 100 mg Trazodone HCl (Trazodone Hcl 100 Mg Tablet) 200 mg PO BEDTIME [facility] Last Admin: 07/25/23 21:20 Dose: 200 mg Allergies Allergies Allergy/AdvReac Type Severity Reaction Status Date / Time No Known Allergies Allergy Verified 06/16/23 13:35 Assessment & Plan Assessment & Plan (1) PTSD (post-traumatic stress disorder): Status: Acute Code(s): F43.10 - Post-traumatic stress disorder, unspecified (2) Borderline personality disorder: Status: Acute Code(s): F60.3 - Borderline personality disorder (3) Opioid use disorder, severe, in sustained remission: Status: Acute Code(s): F11.21 - Opioid dependence, in remission Plan 33 yo M-F transgender person using she/her pronouns presents with complex and longstanding psychiatric history and psychosocial situation awaiting intermediate. Unclear who current prescriber is. Does have services through [facility], [facility] and [facility] services. On Suboxone maintenance. Overall we discussed continuing medications, engaging with milieu and safety planning. Hospital course: 07/25 patient's mood is improving; feels more safe and under better behavioral/impulse control. SI is becoming much less intense. Patient reflecting on recent incident and feeling better about planned to move to intermediate. Wants to taper off Suboxone, slowly and would like to go down to 18 mg daily 07/26 Patient reports that she is doing okay and feeling safe and comfortable on the unit. No urges to self-harm. Patient says she is not quite at baseline but is doing better and approaching baseline which she can tell because of the quality of the internal dialogue... Not too intrusive... Not too overwhelming. Patient shared about history of therapy which she says has overall been very helpful; she said DBT probably saved me from myself... In a tangible way and sites how helpful these coping skills have been for her. Discussed aftercare and patient said that if the intermediate were ready today she will be ready to discharge to it. She says she is going to focus on being optimistic about this opportunity. Human Resource Intern and patient addressed specific items which would alleviate stress regarding discharge and included knowing the names of her prescribers and confirming that they will continue to prescribe medication; patient agreed to sign release of information to send labs back to her PCP. Also patient wants help getting therapy appointment reestablished. Doing well on lower dose of Suboxone -patient has remained in good behavioral and impulse control; she is appropriate with peers and staff, attending groups and forthcoming in 1 on 1 sessions. Patient is future oriented looking forward to discharging to intermediate. plan: cv 5 min LB checks; will leave for now but likely able to go to Q 15; re-enforce using coping skills to manage self harm urges and chronic SI Continue with Lower dose of Suboxone to 18 mg SL daily (down from 20 mg; patient has been planning to taper; reports sobriety for 3 years) Continue clonazepam 2 mg daily p.r.n.; video game script writer confirmed script in prescription monitoring program; patient is down from previous dose of 4 mg daily Continue Wellbutrin XL 450 mg daily; patient said this is working well Order HIV test; patient on Truvada Continue Truvada Continue Adderall Continue Thorazine daily and p.r.n. Continue estradiol Continue prazosin 10 mg q.h.s. Continue spironolactone 100 mg b.i.d. Continue trazodone 200 mg q.h.s. Discontinue omeprazole at patient's request; started famotidine p.r.n. instead Start famotidine 20 mg b.i.d. p.r.n. for GERD collateral contact discharge planning Patient educated on: diagnosis, medication risk/benefits, substance abuse and therapeutic strategies Informed Consent: understands Reason for continued inpatient stay Substantial Risk for: stable for discharge Time Spent With Patient Time: Total time managing care of this patient today ____ minutes.
[2023-07-26] MEDS: clonazePAM 1 MG TABLET 2 MG PO (14:06)
[2023-07-26] MEDS: Nicotine Polacrilex 2 MG GUM 4 MG BUCCAL (14:07)
[2023-07-26 22:01] VITALS: BP 106/56; PULSE 100; RESP 16; TEMP 36.4; O2SAT 97
[2023-07-26] MEDS: Melatonin 3 MG TABLET 6 MG PO (22:03)
[2023-07-26] MEDS: Prazosin HCL 5 MG CAPSULE 10 MG PO (22:03)
[2023-07-26] MEDS: chlorproMAZINE HCl 100 MG TABLET PO (22:04)
[2023-07-26] MEDS: traZODone HCL 100 MG TABLET 200 MG PO (22:04)
[2023-07-27 06:00] VITALS: RESP 16
[2023-07-27] MEDS: buPROPion HCl XL 150 MG TAB.ER.24H PO (09:09)
[2023-07-27] MEDS: estradioL 0.5 MG TABLET 2 MG PO ×3 (09:09→21:00)
[2023-07-27] MEDS: buPROPion HCl XL 300 MG TAB.ER.24H PO (09:09)
[2023-07-27] MEDS: Buprenorphine/Naloxone 8/2 mg FILM 2 FILM SUBLINGUAL (09:10)
[2023-07-27] MEDS: Buprenorphine/Naloxone 4/1 mg FILM 0.5 FILM SUBLINGUAL (09:10)
[2023-07-27] MEDS: Emtricitabin/Tenofovir 200/300 TABLET 1 TAB PO (09:10)
[2023-07-27] MEDS: Spironolactone 25 MG TABLET 100 MG PO ×2 (09:10→21:00)
[2023-07-27] MEDS: Amphetamine Mixed Salts 20 MG TABLET PO (09:10)
--- NOTE | 2023-07-27 10:10 | HO.PSYCHPN ---
Subjective Subjective Date of Service: 07/27/23 Reason For Visit: SI Interim History: Met with patient; discussed the team Patient said she is feeling little anxious today; on reflection realize she had some unpleasant weird dreams last night and woke up feeling anxious. That said patient feels in good behavioral and impulse control and has demonstrated as such. She feels medications are working and that she continues to get closer to her baseline. Patient excited to learn that she can discharge tomorrow to intermediate. Reviewed medications and aftercare plans and patient feeling optimistic. Mental Status Exam Mental Status Exam Narrative: Pt is alert and oriented; behavior is cooperative, friendly and calm; patient is not in distress; dressed in casual attire, unkempt hair, cloths, adequate hygiene; mood is described as okay and affect congruent; eye contact appropriate; Speech is normal rate, volume and prosody and not pressured; no psychomotor agitation/retardation present; thought process is organized and goal directed; Thought content is on tx, discharge; otherwise pertinent to relevant topics and without any delusional content, paranoid ideations or grandiosity; intermittent passive SI which is chronic and able to be ignored; no active, plans or intent; no HI. There is no evidence of perceptual disturbance. Patients insight and judgment fair, at baseline and adequate Diagnostics Vital Signs (24Hr): Vital Signs - 24 hr 07/26/23 22:01 07/27/23 06:00 Temperature 97.5 F Pulse Rate 100 Respiratory Rate 16 16 Blood Pressure 106/56 L Pulse Oximetry 97 Oxygen Delivery Method Room Air BMI result Body Mass Index 23.1 Labs 07/20/23 11:58 07/20/23 11:58 Labs: Laboratory Results - last 48 hr 07/25/23 14:56 HIV 1&2 Ab/P24 Ag 4thGn Nonreactive Medications Medications Current Medications Acetaminophen (Acetaminophen 325 Mg Tablet) 650 mg PO Q6H PRN PRN Reason: Headache/Pain Mild Scale (1-3) Al Hydroxide/Mg Hydroxide (Magnesium Hydrox/Alum Hydrox 30 Ml Oral.Susp) 30 ml PO Q6H PRN PRN Reason: Heartburn/Nausea Last Admin: 07/24/23 10:55 Dose: 30 ml Amphetamine/Dextroamphetamine (Amphetamine Mixed Salts 20 Mg Tablet) 20 mg PO DAILY [facility] Last Admin: 07/27/23 09:10 Dose: 20 mg Benztropine Mesylate (Benztropine Mesylate 0.5 Mg Tablet) 0.5 mg PO DAILY PRN PRN Reason: shakiness Buprenorphine/Naloxone (Buprenorphine/Naloxone 8/2 Mg Film) 2 film [facility] Last Admin: 07/27/23 09:10 Dose: 2 film Buprenorphine/Naloxone (Buprenorphine/Naloxone 4/1 Mg Film) 0.5 film SUBLINGUAL [facility] Last Admin: 07/27/23 09:10 Dose: 0.5 film Bupropion HCl (Bupropion Hcl Xl 150 Mg Tab.Er.24h) 150 mg PO DAILY [facility] Last Admin: 07/27/23 09:09 Dose: 150 mg Bupropion HCl (Bupropion Hcl Xl 300 Mg Tab.Er.24h) 300 mg PO DAILY [facility] Last Admin: 07/27/23 09:09 Dose: 300 mg Chlorpromazine HCl (Chlorpromazine Hcl 25 Mg Tablet) 50 mg PO BID PRN PRN Reason: psychosis Last Admin: 07/23/23 11:44 Dose: 50 mg Chlorpromazine HCl (Chlorpromazine Hcl 100 Mg Tablet) 100 mg PO BEDTIME [facility] Last Admin: 07/26/23 22:04 Dose: 100 mg Clonazepam (Clonazepam 1 Mg Tablet) 2 mg PO DAILY PRN PRN Reason: anixety Last Admin: 07/26/23 14:06 Dose: 2 mg Docusate Sodium (Docusate Sodium 100 Mg Capsule) 100 mg PO BID PRN PRN Reason: for constipation Emtricitabine/Tenofovir (Emtricitabin/Tenofovir 200/300 Tablet) 1 tab PO DAILY [facility] Last Admin: 07/27/23 09:10 Dose: 1 tab Estradiol (Estradiol 0.5 Mg Tablet) 2 mg PO TID [facility] Last Admin: 07/27/23 09:09 Dose: 2 mg Famotidine (Famotidine 20 Mg Tablet) 20 mg PO BID PRN PRN Reason: GERD Hydroxyzine HCl (Hydroxyzine Hcl 25 Mg Tablet) 25 mg PO Q6H PRN PRN Reason: Anxiety Last Admin: 07/24/23 13:31 Dose: 25 mg Magnesium Hydroxide (Milk Of Magnesia 30 Ml Oral.Susp) 30 ml PO DAILY PRN PRN Reason: Constipation Melatonin (Melatonin 3 Mg Tablet) 6 mg PO BEDTIME [facility] Last Admin: 07/26/23 22:03 Dose: 6 mg Nicotine Polacrilex (Nicotine Polacrilex 2 Mg Gum) 4 mg BUCCAL Q2H PRN PRN Reason: Nicotine Cravings Last Admin: 07/26/23 14:07 Dose: 4 mg Nicotine Polacrilex (Nicotine Polacrilex 2 Mg Gum) 4 mg BUCCAL Q2H PRN PRN Reason: Nicotine Cravings Prazosin HCl (Prazosin Hcl 5 Mg Capsule) 10 mg PO BEDTIME [facility]; Protocol Last Admin: 07/26/23 22:03 Dose: 10 mg Spironolactone (Spironolactone 25 Mg Tablet) 100 mg PO BID [facility]; Protocol Last Admin: 07/27/23 09:10 Dose: 100 mg Trazodone HCl (Trazodone Hcl 100 Mg Tablet) 200 mg PO BEDTIME [facility] Last Admin: 07/26/23 22:04 Dose: 200 mg Allergies Allergies Allergy/AdvReac Type Severity Reaction Status Date / Time No Known Allergies Allergy Verified 06/16/23 13:35 Assessment & Plan Assessment & Plan (1) PTSD (post-traumatic stress disorder): Status: Acute Code(s): F43.10 - Post-traumatic stress disorder, unspecified (2) Borderline personality disorder: Status: Acute Code(s): F60.3 - Borderline personality disorder (3) Opioid use disorder, severe, in sustained remission: Status: Acute Code(s): F11.21 - Opioid dependence, in remission Plan 33 yo M-F transgender person using she/her pronouns presents with complex and longstanding psychiatric history and psychosocial situation awaiting intermediate. Unclear who current prescriber is. Does have services through [facility]], [facility] and [facility] services. On Suboxone maintenance. Overall we discussed continuing medications, engaging with milieu and safety planning. Hospital course: 07/25 patient's mood is improving; feels more safe and under better behavioral/impulse control. SI is becoming much less intense. Patient reflecting on recent incident and feeling better about planned to move to intermediate. Wants to taper off Suboxone, slowly and would like to go down to 18 mg daily 07/26 Patient reports that she is doing okay and feeling safe and comfortable on the unit. No urges to self-harm. Patient says she is not quite at baseline but is doing better and approaching baseline which she can tell because of the quality of the internal dialogue... Not too intrusive... Not too overwhelming. Patient shared about history of therapy which she says has overall been very helpful; she said DBT probably saved me from myself... In a tangible way and sites how helpful these coping skills have been for her. Discussed aftercare and patient said that if the intermediate were ready today she will be ready to discharge to it. She says she is going to focus on being optimistic about this opportunity. [employer] and patient addressed specific items which would alleviate stress regarding discharge and included knowing the names of her prescribers and confirming that they will continue to prescribe medication; patient agreed to sign release of information to send labs back to her PCP. Also patient wants help getting therapy appointment reestablished. Doing well on lower dose of Suboxone -patient has remained in good behavioral and impulse control; she is appropriate with peers and staff, attending groups and forthcoming in 1 on 1 sessions. Patient is future oriented looking forward to discharging to intermediate. 07/27 patient remains stable; feels she is getting closer and closer to her baseline. Intermittent chronic passive SI but is able to be ignored. Feels ready for discharge and is excited to be going to the intermediate tomorrow. Patient has extensive outpatient support already in place. Patient is chronically vulnerable to being triggered, getting emotionally dysregulated and engaging in self-harm and given her history, chronic SI, it is likely that at some point she will again decompensate and become unsafe. However as mentioned this is a chronic, longstanding issue, one of which patient is well aware and has been working on consistently with her outpatient support team. This issue will not change with longer stay on an inpatient unit (and would likely worsen with longer stay) and rather requires continued commitment to outpatient therapy and sobriety, something with which patient remains eager to pursue. Patient is discharging to a stable supportive environment. Currently she is not in imminent risk for harm to self or others appropriate to return to the community to continue treatment. plan: cv 5 min LB checks; will leave for now but likely able to go to Q 15; re-enforce using coping skills to manage self harm urges and chronic SI Continue with Lower dose of Suboxone to 18 mg SL daily (down from 20 mg; patient has been planning to taper; reports sobriety for 3 years) Continue clonazepam 2 mg daily p.r.n.; global technical writer confirmed script in prescription monitoring program; patient is down from previous dose of 4 mg daily Continue Wellbutrin XL 450 mg daily; patient said this is working well HIV test negative and faxed to PCP; patient on Truvada Continue Truvada Continue Adderall Continue Thorazine daily and p.r.n. Continue estradiol Continue prazosin 10 mg q.h.s. Continue spironolactone 100 mg b.i.d. Continue trazodone 200 mg q.h.s. Discontinue omeprazole at patient's request; started famotidine p.r.n. instead Start famotidine 20 mg b.i.d. p.r.n. for GERD collateral contact discharge planning Patient educated on: diagnosis, medication risk/benefits and medical condition Informed Consent: understands Reason for continued inpatient stay Substantial Risk for: stable for discharge Time Spent With Patient Time: Total time managing care of this patient today ____ minutes.
[2023-07-27] MEDS: Nicotine Polacrilex 2 MG GUM 4 MG BUCCAL ×2 (11:26→13:29)
[2023-07-27] MEDS: clonazePAM 1 MG TABLET 2 MG PO (14:34)
--- NOTE | 2023-07-27 15:50 | PM.PSYDC ---
DS: Providers Provider Date of Service: 07/28/23 Date of admission: 07/23/23 19:52 Date of discharge: 07/28/23 Primary care physician: Unknown Physician Attending physician on admission: Liban Wiseman Attending physician on discharge: Liban Wiseman DS: Diagnosis Discharge Diagnosis (1) PTSD (post-traumatic stress disorder): Status: Acute (2) Borderline personality disorder: Status: Acute (3) Opioid use disorder, severe, in sustained remission: Status: Acute DS: Medications Discharge Medications Home Medications: Previous Rx's Medication Instructions Recorded aluminum-magnesium hydroxide 200 30 ml PO Q6H PRN Heartburn/Nausea 07/27/23 mg-200 mg/5 mL oral suspension #0 mL (MAG-AL) benztropine 0.5 mg tablet 0.5 mg PO DAILY PRN shakiness 30 07/27/23 days #30 tabs buprenorphine 2 mg-naloxone 0.5 mg 1 film buccal DAILY 1 day #1 ea 07/27/23 sublingual film buprenorphine 8 mg-naloxone 2 mg 2 film sublingual DAILY 1 day #2 ea 07/27/23 sublingual film (Suboxone) bupropion HCl 150 mg 24 hr tablet, 150 mg PO QAM 30 days #30 tabs 07/27/23 extended release bupropion HCl 300 mg 24 hr tablet, 300 mg PO QAM 30 days #30 tabs 07/27/23 extended release chlorpromazine 100 mg tablet 100 mg PO BEDTIME 30 days #30 tabs 07/27/23 chlorpromazine 50 mg tablet 50 mg PO BID PRN agitation 30 days 07/27/23 #60 tabs clonazepam 1 mg tablet 2 mg (2 x 1 mg) PO DAILY PRN 07/27/23 Anxiety 30 days #30 tabs dextroamphetamine-amphetamine 20 20 mg PO DAILY 30 days #30 tabs 07/27/23 mg tablet docusate sodium 100 mg capsule 100 mg PO BID PRN for constipation 07/27/23 30 days #30 caps emtricitabine 200 mg-tenofovir 1 tab PO DAILY 30 days #30 tabs 07/27/23 disoproxil fumarate 300 mg tablet estradiol 2 mg tablet 2 mg PO TID 30 days #90 tabs 07/27/23 famotidine 20 mg tablet 20 mg PO BID PRN GERD 30 days #60 07/27/23 tabs hydroxyzine pamoate 50 mg capsule 50 mg PO QID PRN Anxiety 30 days 07/27/23 #120 caps melatonin 3 mg tablet 6 mg (2 x 3 mg) PO BEDTIME PRN 07/27/23 sleep 30 days #60 tabs nicotine (polacrilex) 4 mg gum 4 mg PO Q2H PRN Nicotine Cravings 07/27/23 30 days #240 ea prazosin 5 mg capsule 10 mg (2 x 5 mg) PO BEDTIME 30 07/27/23 days #60 caps spironolactone 100 mg tablet 100 mg PO BID 30 days #60 tabs 07/27/23 trazodone 100 mg tablet 200 mg (2 x 100 mg) PO BEDTIME 07/27/23 insomnia 30 days #60 tabs Mental Status Exam Mental Status Exam Narrative: Pt is alert and oriented; behavior is cooperative, friendly and calm; patient is not in distress; dressed in casual attire, unkempt hair, cloths, adequate hygiene; mood is described as good and affect congruent; eye contact appropriate; Speech is normal rate, volume and prosody and not pressured; no psychomotor agitation/retardation present; thought process is organized and goal directed; Thought content is on tx, discharge; otherwise pertinent to relevant topics and without any delusional content, paranoid ideations or grandiosity; intermittent passive SI which is chronic and able to be ignored; no active, plans or intent; no HI. There is no evidence of perceptual disturbance. Patients insight and judgment fair, at baseline and adequate Data Data Completed and Pending Completed studies during hospitalization [Text1]: 07/25/23 14:56 HIV 1&2 Ab/P24 Ag 4thGn Nonreactive DS: Summary Hospital Course Hospital Course: 33 yo M-F transgender she/her pronouns, presents with complex and longstanding psychiatric history, history of PTSD, borderline personality disorder, chronic SI, chronic superficial self-harm, who presents after getting dysregulated in the community in the face of psychosocial stress, awaiting care home placement. Patient explained she was at respite, anticipating staying there through winter and felt blindsided and rushed when [facility] staff came in to say that she has to moved to her care home immediately. Patient said she got very stressed, anxious about what was going to happen to her medication, would her providers change...feeling anxious and pressured by staff triggered her urge to self-harm and patient superficially cut her arm. Patient says that she deals with daily SI which is typically passive and able to be ignored; however when stress increases, like this past week, SI thoughts become intrusive. In the emergency room patient remained very dysregulated, jumped off the bed, in the air, either to get away from staff or to self-harm but was caught by a staff member; needed to be restrained. However, now on the unit, patient is in good behavioral and impulse control calm cooperative and friendly. She is able to engage and reflect that in hindsight the fact that she is getting to go to a care home is a positive thing that she is looking forward to and it was only her overwhelming emotions that clouded this perspective. Patient said that [facility] said they want her to stay in the hospital until she can get in to care home which is about a week; patient a little anxious about this since she knows it is out of her control. Hospital course: 07/25 patient's mood is improving; feels more safe and under better behavioral/impulse control. SI is becoming much less intense. Patient reflecting on recent incident and feeling better about planned to move to care home. Wants to taper off Suboxone, slowly and would like to go down to 18 mg daily having been sober for 3 years now.. Discussed medication history and patient said that in the past she wanted to get off Wellbutrin but currently this dose is working for and she wants to remain. Patient says SI is much less and she is feeling safe. Patient reports she used to be on clonazepam 4 mg and is now currently on only 2 mg daily and would like to continue with this dose for now. Asks for blood work so she can remain on Truvada. 07/26 Patient reports that she is doing okay and feeling safe and comfortable on the unit. No urges to self-harm. Patient says she is not quite at baseline but is doing better and approaching baseline which she can tell because of the quality of the internal dialogue... Not too intrusive... Not too overwhelming. Patient shared about history of therapy which she says has overall been very helpful; she said DBT probably saved me from myself... In a tangible way and sites how helpful these coping skills have been for her. Discussed aftercare and patient said that if the care home were ready today she will be ready to discharge to it. She says she is going to focus on being optimistic about this opportunity. International Account Manager and patient addressed specific items which would alleviate stress regarding discharge and included knowing the names of her prescribers and confirming that they will continue to prescribe medication; patient agreed to sign release of information to send labs back to her PCP. Also patient wants help getting therapy appointment reestablished. Doing well on lower dose of Suboxone -patient has remained in good behavioral and impulse control; she is appropriate with peers and staff, attending groups and forthcoming in 1 on 1 sessions. Patient is future oriented looking forward to discharging to care home. 07/27 patient remains stable; feels she is getting closer and closer to her baseline. Intermittent chronic passive SI but is able to be ignored. Feels ready for discharge and is excited to be going to the care home tomorrow. Throughout her time on the unit, patient remained in good behavioral and impulse control; she was appropriate with peers and staff, got along well with others and was engaged in treatment. Patient has extensive outpatient support already in place. Patient understands that she is chronically vulnerable to being triggered, getting emotionally dysregulated and engaging in self-harm; given her history/chronic SI, it is likely that at some point she will again decompensate and become unsafe. However as mentioned this is a chronic, longstanding issue, one of which patient is well aware and has been working on consistently with her outpatient support team. This issue will not change with longer stay on an inpatient unit (and would likely worsen with longer stay) and rather requires continued commitment to outpatient therapy and sobriety, something with which patient remains eager to pursue. Patient is discharging to a stable supportive environment. Currently she is not in imminent risk for harm to self or others appropriate to return to the community to continue treatment. Time spent discussing smoking cessation with patient: 3 to 10 minutes Status at Discharge Functional status at discharge: independent ambulation Overall status at discharge: patient is back to baseline Time Spent with Patient Time attestation: Total time managing care of this patient today ____ minutes. Time spent: Less than 30 minutes Discharge Plan Discharge Anticipated Discharge Date/Time: 07/27/23 09:50 Patient Disposition: Home, Self-Care Discharge Diagnosis: PTSD, chronic with acute exacerbation Referrals: Suboxone: Genevieve Macdonald ([facility]) [Other] - 07/29/23 2:00 pm (Appointment is in person; enter through the Main Entrance of the hospital, take elevators D or E to the 4th floor, down the higgins to the right after you get off the elevator ) ACCS Clinician: Komal ([facility]) [Other] - 1 Week (Follow up with Komal and the rest of your ACCS team as needed) Psych Prescriber: Freddy Baker ([facility]) [Other] - 08/11/23 1:40 pm (Appointment is in person at the office ) Jaren Shelton CNP [Nurse Practitioner] - 08/11/23 3:00 pm (Appointment is in person at the office ) Discharge Medications: New dextroamphetamine-amphetamine 20 mg Tablet 20 mg PO DAILY 30 Days Qty: 30 0RF Rx Instructions: Partial Fill upon patient request. famotidine 20 mg Tablet 20 mg PO BID PRN (Reason: GERD) 30 Days Qty: 60 1RF MAG-AL 200-200 mg/5 mL Suspension 30 ml PO Q6H PRN (Reason: Heartburn/Nausea) Qty: 0 0RF buprenorphine-naloxone 2-0.5 mg film 1 film buccal DAILY 1 Days Qty: 1 0RF Rx Instructions: place 1 strip/tab under (each) side of tongue Continued benztropine 0.5 mg tablet 0.5 mg PO DAILY PRN (Reason: shakiness) 30 Days Qty: 30 1RF spironolactone 100 mg tablet 100 mg PO BID 30 Days Qty: 60 1RF hydroxyzine pamoate 50 mg capsule 50 mg PO QID MDD 200mg PRN (Reason: Anxiety) 30 Days Qty: 120 1RF prazosin 5 mg capsule 10 mg PO BEDTIME 30 Days Qty: 60 1RF nicotine (polacrilex) 4 mg gum 4 mg PO Q2H PRN (Reason: Nicotine Cravings) 30 Days Qty: 240 1RF docusate sodium 100 mg capsule 100 mg PO BID PRN (Reason: for constipation) 30 Days Qty: 30 2RF estradiol 2 mg tablet 2 mg PO TID 30 Days Qty: 90 1RF chlorpromazine 50 mg tablet 50 mg PO BID PRN (Reason: agitation) 30 Days Qty: 60 1RF bupropion HCl 300 mg tablet extended release 24 hr 300 mg PO QAM 30 Days Qty: 30 1RF Rx Instructions: take with 150mg tab bupropion HCl 150 mg tablet extended release 24 hr 150 mg PO QAM 30 Days Qty: 30 1RF Rx Instructions: take with 300mg tab emtricitabine-tenofovir (TDF) 200-300 mg tablet 1 tab PO DAILY 30 Days Qty: 30 0RF buprenorphine-naloxone [Suboxone] 8-2 mg film 2 film sublingual DAILY 1 Days Qty: 2 0RF Rx Instructions: place each film under tongue Changed chlorpromazine 100 mg tablet 100 mg PO BEDTIME 30 Days Qty: 30 1RF clonazepam 1 mg tablet 2 mg PO DAILY PRN (Reason: Anxiety) 30 Days Qty: 30 0RF melatonin 3 mg tablet 6 mg PO BEDTIME PRN (Reason: sleep) 30 Days Qty: 60 1RF trazodone 100 mg tablet 200 mg PO BEDTIME 30 Days Qty: 60 1RF Discontinued buprenorphine-naloxone [Suboxone] 4-1 mg film 1 film sublingual Q24H Qty: 30 0RF Rx Instructions: in addition to 16mg. Total of 20mg daily Adderall 20 mg PO DAILY omeprazole 20 mg capsule,delayed release(DR/EC) 20 mg PO QAM 30 Days Qty: 30 3RF Discharge Orders: Discharge Order (Routine); Ordered 07/28/23 Ordered By: Liban Wiseman Diet: Regular diet Activity on Discharge: As tolerated Stand Alone Forms: Patient Portal Discharge page, Community Support Care Plan Goals: Maintain mood and safe behaviors Take medications as prescribed Continue to pursue sobriety Practice coping skills Continue with outpatient providers and reach out to them as needed Health Concerns: Mood stability and behaviors Hormone therapy Plan of Treatment: Follow up with your PCP, psychiatric provider and other outpatient providers regarding above concerns Take medications as prescribed Assessment: Risk assessment at time of discharge:? Patient was interviewed prior to discharge and found to be fully oriented and without any SI or HI. Patient has improved insight and judgment and wants to continue treatment. Patient is not in imminent risk of harm to self or others and has a safety plan that includes presenting to the closest ER or calling 911 if feeling unsafe.? Patient has been observed closely by nursing and unit staff throughout admission; patient has not engaged in any behaviors that suggest dangerousness to self or others and has demonstrated appropriate behaviors and impulse control Discharge Date/Time: 07/28/23 10:45
[2023-07-27 20:52] VITALS: BP 123/63; PULSE 104
[2023-07-27] MEDS: Prazosin HCL 5 MG CAPSULE 10 MG PO (21:00)
[2023-07-27] MEDS: traZODone HCL 100 MG TABLET 200 MG PO (21:00)
[2023-07-27] MEDS: Melatonin 3 MG TABLET 6 MG PO (21:00)
[2023-07-27] MEDS: chlorproMAZINE HCl 100 MG TABLET PO (21:00)
[2023-07-28 08:00] VITALS: BP 119/58; TEMP 36.4; O2SAT 98
[2023-07-28] MEDS: buPROPion HCl XL 150 MG TAB.ER.24H PO (08:34)
[2023-07-28] MEDS: buPROPion HCl XL 300 MG TAB.ER.24H PO (08:34)
[2023-07-28] MEDS: Emtricitabin/Tenofovir 200/300 TABLET 1 TAB PO (08:34)
[2023-07-28] MEDS: Amphetamine Mixed Salts 20 MG TABLET PO (08:34)
[2023-07-28] MEDS: Buprenorphine/Naloxone 8/2 mg FILM 2 FILM SUBLINGUAL (08:36)
[2023-07-28] MEDS: Nicotine Polacrilex 2 MG GUM 4 MG BUCCAL (09:11)
[2023-07-28] MEDS: Naloxone HCl Nasal TAKE HOME 4 MG SPRAY 8 MG NOSTRILALT (09:11)
[2023-07-28] MEDS: Spironolactone 25 MG TABLET 100 MG PO (09:39)
[2023-07-28] MEDS: Buprenorphine/Naloxone 4/1 mg FILM 0.5 FILM SUBLINGUAL (10:27)
[2023-07-28] MEDS: estradioL 0.5 MG TABLET 2 MG PO (10:35)
== END 2023-07-28 10:45 | disposition home or self-care (01) | DRG 752 ==
LOC: HO.ED 07-23 07:02 → HO.PM5 07-23 20:10
PROVIDERS: Physician Assistant Medical; Admitting Provider Psychiatry & Neurology Psychiatry; Emergency Provider Emergency Medicine Emergency Medical Services; Visit Provider Psychiatry & Neurology Psychiatry
DX: F60.3 Borderline personality disorder (principal); R45.851 Suicidal ideations; F11.20 Opioid dependence, uncomplicated; F43.12 Post-traumatic stress disorder, chronic; F17.210 Nicotine dependence, cigarettes, uncomplicated; F64.0 Transsexualism; Z20.822 Contact with and (suspected) exposure to COVID-19; Z71.6 Tobacco abuse counseling; Z79.899 Other long term (current) drug therapy
CPT/HCPCS: 36415; 80053; 80143; 80179; 80307; 81003; 85025; 87389; 87635; 93005; 99285; J1200; J2060; S9485

== ENCOUNTER → 2023-07-23 19:52 | Outpatient (BNV) | payer OTHER, SELFPAY | PROVIDERS: Admitting Provider Psychiatry & Neurology Psychiatry; Emergency Provider Emergency Medicine Emergency Medical Services; Visit Provider Clinical Nurse Specialist Psychiatric/Mental Health | DX: F60.3 Borderline personality disorder (principal); F11.21 Opioid dependence, in remission; F43.11 Post-traumatic stress disorder, acute | CPT/HCPCS: 90792; 99231; 99232; 99238 ==

== ENCOUNTER 2023-07-29 14:00 | Outpatient (AMB) | payer OTHER, SELFPAY ==
[2023-07-29 14:05] VITALS: BP 106/70; PULSE 82; O2SAT 9
--- NOTE | 2023-07-29 14:05 | A.OFFVIS_ITS ---
Intake Vital Signs 07/29/23 14:05 BP 106/70 Blood Pressure Location Lt radial Position Sitting Pulse 82 Pulse Source Pulse Oximeter Pulse Oximetry (%) 9 L Oxygen Delivery Method Room Air Intake Visit Reasons: mat visit Intake Note: the patient presents for a mat visit Glass Tinter Required: No Allergies No Known Allergies Allergy (Verified 07/29/23 14:06) Do you need a note to return to daycare/school/sports/work: No HPI mat visit HPI Details Pt presents for [facility] treatment and follow up. Reports she was recently discharged from , and during her stay was titrated down on her suboxone by 2mg. She reports she is doing well so far with this dose change, denies any cravings or recovery concerns. Denies side effects. She has a new senior living that she just moved into yesterday that she is happy about. [facility] Medical History Opioid use disorder, severe, on maintenance therapy Surgical History H/O breast augmentation Social History Household Members: None Household Members Other:: lives in a senior living Housing: Other Housing Other:: Pt was [facility] at [facility]; unable to return w/o treatment Do you presently have visiting nurse or other home services: No Unable to assess alcohol history related to: Refusing to respond Alcohol intake: never Patient Tobacco Use Status: Current someday Tobacco user Tobacco use type: Cigarette Cigarettes Per Day: 5 e-Cigarette/Vaping Use: Never Used Substance Use Type: Former Substance User service: No Current occupational status: disabled Sexual orientation: Don't Know Cognitive needs: No Hearing needs: No Vision needs: No Review of Systems Const Reports as per HPI Physical Exam Vital Signs: Last Vital Signs Pulse 82 07/29/23 14:05 BP 106/70 07/29/23 14:05 Pulse Ox 9 L 07/29/23 14:05 Oxygen Delivery Method Room Air 07/29/23 14:05 Const General: cooperative Nutritional Appearance: average body habitus Orientation/consciousness: patient oriented x3 Resp Effort & Inspection: normal respiratory effort Neuro General: patient oriented x3 Psych Appearance: disheveled Mental Status: mental status grossly normal Speech and movement: Normal speech and movement present Affect: Blunted affect present Attitude: cooperative Assessment & Plan Assessment & Plan (1) Opioid use disorder, severe, in sustained remission: Code(s): F11.21 - Opioid dependence, in remission Plan: Continue suboxone at new dose Follow up 4 weeks Reviewed with pt to call [facility] if she has concerns, or needs to be seen sooner. Medications: Refilled buprenorphine-naloxone 2-[address] 1 strip/tab under (each) side of tongue 1 film buccal DAILY 30 ea 0RF 1 day buprenorphine-naloxone 8-2 mg (Suboxone) place each film under tongue 2 film sublingual DAILY 30 ea 0RF 1 day Coding Level of Care Code Est Pt Level 3 (02900) Diagnoses Opioid use disorder, severe, in sustained remission F11.21
== END 2023-07-29 14:24 | disposition home or self-care (01) ==
PROVIDERS: Visit Provider Nurse Practitioner Family
DX: F11.21 Opioid dependence, in remission (principal)
CPT/HCPCS: 99213

== ENCOUNTER → 2023-07-29 14:00 | Outpatient (BNVA) | payer OTHER, SELFPAY | PROVIDERS: Visit Provider Nurse Practitioner Family | DX: F11.21 Opioid dependence, in remission (principal) | CPT/HCPCS: 99212 ==

== ENCOUNTER 2023-08-11 14:20 | Outpatient (AMB) | payer OTHER, SELFPAY ==
--- NOTE | 2023-08-11 14:25 | MHC.PC.OV ---
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: No Accompanied by: Self / Same As Patient Allergies No Known Allergies Allergy (Verified 08/11/23 14:31) Tobacco use date assessed: 08/11/23 Dental Screening Dental Screen Date: 08/11/23 Did you have a dental visit in the last 12 months?: No Did you have a dental problem in the last 6 months where you did not have access to dental care?: No Was dental information given to patient?: Patient declined HPI HPI Comments History of Present Illness Details 33-year-old assigned male at , now female, presents for a follow-up visit Her former PCP is VERNON who is no longer with the practice She was recently treated at [facility] and Psychiatry for increased stress and suicide ideation. She is a patient of [facility]. She attributed her stress to being unexpectedly informed by [facility] that she was going to be transferred to a [facility]. She was admitted on 07/19/2023 and discharged on 07/28/2023. Physical exam and labs were unremarkable She reports controlled anxiety and depression symptoms She admits to taking her medications as prescribed without adverse reactions She denies acute symptoms at this time She has significant psychiatric history, including MDD, anxiety PTSD, borderline personality disorder, chronic SI, and chronic superficial self-harm [facility] Medical History Opioid use disorder, severe, on maintenance therapy Surgical History H/O breast augmentation Social History Household Members: None Household Members Other:: lives in a [facility] Housing: Other Housing Other:: Pt was living at a [facility] housing Do you presently have visiting nurse or other home services: No Unable to assess alcohol history related to: Refusing to respond Alcohol intake: never Patient Tobacco Use Status: Current someday Tobacco user Tobacco use type: Cigarette Cigarettes Per Day: 5 e-Cigarette/Vaping Use: Never Used Substance Use Type: Former Substance User service: No Current occupational status: disabled Sexual orientation: Don't Know Cognitive needs: No Hearing needs: No Vision needs: Yes Questionnaire PHQ-9 Over the last 2 weeks, how often have you been bothered by any of the following problems? 1. Little interest or pleasure in doing things: nearly every day 2. Feeling down, depressed, or hopeless: nearly every day 3. Trouble falling or staying asleep, or sleeping too much: more than half the days 4. Feeling tired or having little energy: not at all 5. Poor appetite or overeating: nearly every day 6. Feeling bad about yourself - or that you are a failure or have let yourself or your family down: nearly every day 7. Trouble concentrating on things, such as reading the newspaper or watching television: several days 8. Moving or speaking so slowly that other people could have noticed. Or the opposite - being so fidgety or restless that you have been moving around a lot more than usual: not at all 9. Thoughts that you would be better off or of hurting yourself in some way: nearly every day Total score: 18 Depression Screening Interpretation: Positive Depression Screening Follow-up: Existing condition and In treatment Depression Screening Done: Yes 63717 - PHQ-9 Billing: Yes Source: Developed by Drs. Obdulio Bolivar, Christelle Ramirez, Kevan Acosta and colleagues, with an educational nimesh from [employer]. HANNAH-7 AMB Questionnaire HANNAH-7 Date HANNAH - 7 assessed: 08/11/23 Feeling nervous, anxious, or on edge: 3 = Nearly every day Not being able to stop or control worryin = Nearly every day Worrying too much about different things: 3 = Nearly every day Trouble relaxin = Nearly every day Being so restless that it is hard to sit still: 2 = More than half the days Becoming easily annoyed or irritable: 0 = Not at all Feeling afraid as if something awful might happen: 2 = More than half the days Total HANNAH-7 score (0-4 normal; 5-9 mild; 10-14 moderate; 15-21 severe): 16 Source: Developed by Drs. Obdulio Bolivar, Kevan Nguyennke and colleagues, with an educational nimesh from [employer]. Review of Systems Const Details: Const Denies chills, Denies fatigue, Denies fever(s), Denies headache(s) and Denies weakness ENT Denies dizziness and Denies headache(s) Card Denies chest pain, Denies lightheadedness, Denies dyspnea and Denies other (Palpitations) Resp Denies cough, Denies dyspnea, Denies wheezing and Denies other ( shortness of breath) GI Denies abdominal pain, Denies melena, Denies hematochezia, Denies change in bowel habits, Denies dyspepsia and Denies nausea Denies hematuria and Denies dysuria Musc Denies abnormal gait, Denies myalgias, Denies arthralgias, Denies numbness and Denies tingling Skin/Breast Denies rash, Denies unusual bruising and Denies wounds Neuro Denies abnormal gait, Denies dizziness, Denies headache(s), Denies memory loss, Denies numbness, Denies Sensory deficit (Neuro), Denies tingling and Denies weakness Psych Denies anxiety, Denies depression, Denies memory loss Endo Denies cold intolerance, Denies fatigue, Denies heat intolerance, Denies polydipsia and Denies polyuria Aller/Immun Denies wheezing Physical exam (Primary Care) Vital Signs: Last Vital Signs Temp 98.3 F 08/11/23 14:26 Pulse 75 08/11/23 14:26 Resp 13 08/11/23 14:26 BP 122/60 08/11/23 14:26 Pulse Ox 97 08/11/23 14:26 Oxygen Delivery Method Room Air 08/11/23 14:26 BMI result Body Mass Index 24.7 Tobacco/Smoking Status: Tobacco use Status Tobacco use date assessed 08/11/23 08/11/23 14:36 Patient Tobacco Use Status Current someday Tobacco 08/11/23 14:36 Tobacco use type Cigarette 08/11/23 14:36 e-Cigarette/Vaping Use Never Used 08/11/23 14:36 PHQ-9: PHQ-9 Score PHQ-9: Total score 18 08/11/23 14:36 Depression Screening Interpretation: Positive Depression Screening Follow-up: Existing condition and In treatment Const Other: General: no acute distress and well developed Nutritional Appearance: well nourished Orientation/consciousness: patient oriented x3 [facility] Head: Yes normocephalic and Yes atraumatic Eyes General: appearance normal, both eyes and all related structures Pupils: Equal, round and reactive pupils present EOM: EOMs intact bilaterally Resp Effort & Inspection: normal respiratory effort Auscultation: clear to auscultation bilaterally Cardio Rate: regular rate Rhythm: regular rhythm Heart sounds: S1 normal heart sound present, S2 normal heart sound present, no gallops, no murmurs and no rubs GI Palpation (GI): No Abdominal aortic bruit present, Soft to palpation, nontender, No hepatosplenomegaly present and No Rebound tenderness present Auscultation: normal bowel sounds General: Yes no CVA tenderness Back/Spine/Pelvis Back: no CVA tenderness Cervical Spine: cervical ROM normal and No Cervical spine tenderness Thoracic/Lumbar Spine: thoraco-lumbar ROM normal, No pain with thoraco-lumbar ROM, No thoracic spinal tenderness and No lumbar spinal tenderness Extrem General: Yes normal to inspection, No edema and No calf tenderness Skin General: warm and dry. Normal skin color. Normal skin turgor Neuro General: patient oriented x3, gait normal and no focal neuro deficit Cranial nerves: Yes Equal, round and reactive pupils present Cognition (Neuro): normal cognition Gait exam (Neuro): Normal gait present Sensory Exam: No Sensory deficit (Neuro) Psych Appearance: grossly normal Affect: normal affect Attitude: cooperative Thought process: Normal thought process present Assessment and Plan Assessment & Plan (1) Anxiety: Code(s): F41.9 - Anxiety disorder, unspecified Plan: Reports controlled anxiety and depression symptoms PHQ-9 and HANNAH-7 scores revealed moderately severe depression and severe anxiety respectively Continue with current treatment regimen Continue to follow-up with [facility] providers as planned Advised to schedule appointment for transfer of care with a provider in any of our facilities. She notes that he will transfer care to the [place] location which is closer to his home Follow-up with worsening or new symptoms Verbalized understanding and agreed with treatment plan (2) Depression: Code(s): F32.A - Depression, unspecified Qualifiers: Active/Remission status: currently active Depression Type: major depressive disorder Major depression episode severity: severe Major depression recurrence: recurrent Psychotic features: without psychotic features Qualified Code(s): F33.2 - Major depressive disorder, recurrent severe without psychotic features Plan: As above Coding Level of Care Code Est Pt Level 2 (50307) Diagnoses Anxiety F41.9 Depression F33.2 Active/Remission status: currently active Depression Type: major depressive disorder Major depression episode severity: severe Major depression recurrence: recurrent Psychotic features: without psychotic features
[2023-08-11 14:26] VITALS: BP 122/60; PULSE 75; RESP 13; TEMP 36.8; O2SAT 97; BMI 24.7
== END 2023-08-11 15:18 | disposition home or self-care (01) ==
PROVIDERS: PCP Nurse Practitioner Family; Visit Provider Nurse Practitioner Family
DX: F41.9 Anxiety disorder, unspecified (principal); F33.2 Major depressive disorder, recurrent severe without psychotic features; F17.210 Nicotine dependence, cigarettes, uncomplicated
CPT/HCPCS: 99212

== ENCOUNTER 2023-08-31 15:25 | Outpatient (AMB) | payer OTHER, SELFPAY ==
--- NOTE | 2023-08-31 15:27 | MHC.AM.SUB ---
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 Required: No Allergies No Known Allergies Allergy (Verified 08/31/23 15:34) Do you need a note to return to daycare/school/sports/work: No HPI MAT VISIT HPI Details Patient presents for follow up Recently admitted to for SI Lives at [facility] in [place] Would like to decrease dose by 2mg (down to 16mg) Doing well with recovery, no issues realted to medication PFSH Medical History Opioid use disorder, severe, on maintenance therapy Surgical History H/O breast augmentation Social History Household Members: None Household Members Other:: [place] [facility] Housing: Other Housing Other:: Pt was living at a [facility]NOTE [facility] housing Do you presently have visiting nurse or other home services: No Unable to assess alcohol history related to: Refusing to respond Alcohol intake: never Patient Tobacco Use Status: Current someday Tobacco user Tobacco use type: Cigarette Cigarettes Per Day: 5 e-Cigarette/Vaping Use: Never Used Substance Use Type: Former Substance User service: No Current occupational status: disabled Sexual orientation: Don't Know Cognitive needs: No Hearing needs: No Vision needs: Yes Review of Systems Const Reports as per HPI and Reports no additional complaints Physical Exam Vital Signs: Last Vital Signs Pulse 90 08/31/23 15:32 BP 114/66 08/31/23 15:32 Pulse Ox 97 08/31/23 15:32 Oxygen Delivery Method Room Air 08/31/23 15:32 Const General: cooperative and no acute distress Psych Appearance: well kempt Speech and movement: Clear speech present Affect: normal affect Attitude: cooperative Assessment & Plan Assessment & Plan (1) Opioid use disorder, severe, in sustained remission: Code(s): F11.21 - Opioid dependence, in remission Plan: decrease suboxone dose to 16mg QD (from 20mg) follow up 4 weeks Medications: Refilled buprenorphine-naloxone 8-2 mg (Suboxone) 2 film sublingual DAILY 60 ea 0RF Discontinued buprenorphine-naloxone 2-0.[address] 1 strip/tab under (each) side of tongue Discontinued Reason: Patient no longer taking 1 film buccal DAILY 1 day 30 ea 0RF Coding Level of Care Code Est Pt Level 3 (43117) Diagnoses Opioid use disorder, severe, in sustained remission F11.21
[2023-08-31 15:32] VITALS: BP 114/66; PULSE 90; O2SAT 97
== END 2023-08-31 15:52 | disposition home or self-care (01) ==
PROVIDERS: PCP Nurse Practitioner Family; Visit Provider Nurse Practitioner Psychiatric/Mental Health
DX: F11.21 Opioid dependence, in remission (principal)
CPT/HCPCS: 99213

== ENCOUNTER → 2023-08-31 15:25 | Outpatient (BNVA) | payer OTHER, SELFPAY | PROVIDERS: PCP Nurse Practitioner Family; Visit Provider Nurse Practitioner Psychiatric/Mental Health | DX: F11.21 Opioid dependence, in remission (principal) | CPT/HCPCS: 99212 ==

== ENCOUNTER 2023-09-06 18:07 | Emergency (ER) | payer OTHER, SELFPAY ==
[2023-09-06 18:13] VITALS: BP 126/70; PULSE 80; O2SAT 98
--- NOTE | 2023-09-06 18:26 | ED_ITS ---
HPI - Psych General Stated Complaint: SI, previous self harm, plans to OD on drugs Time Seen by Provider: 09/06/23 18:15 Source: patient and EMS Mode of arrival: EMS Limitations: no limitations History of Present Illness HPI Narrative: 33-year-old male to female transgender like to be called she/her, with a complex and longstanding psychiatric history of PTSD, borderline personality disorder, chronic SI, chronic superficial self-harm she live at a shelter, patient stated that she has been having suicidal ideation with no specific plan but may overdose or hang herself. Patient had at prior mental health hospitalization in the past. Patient now declined overdosing or taking any street drugs today last use was yesterday she used marijuan brought it from a dispensary Related Data Previous Rx's Medication Instructions Recorded aluminum-magnesium hydroxide 200 30 ml PO Q6H PRN Heartburn/Nausea 07/27/23 mg-200 mg/5 mL oral suspension #0 mL (MAG-AL) benztropine 0.5 mg tablet 0.5 mg PO DAILY PRN shakiness 30 07/27/23 days #30 tabs bupropion HCl 150 mg 24 hr tablet, 150 mg PO QAM 30 days #30 tabs 07/27/23 extended release bupropion HCl 300 mg 24 hr tablet, 300 mg PO QAM 30 days #30 tabs 07/27/23 extended release chlorpromazine 100 mg tablet 100 mg PO BEDTIME 30 days #30 tabs 07/27/23 chlorpromazine 50 mg tablet 50 mg PO BID PRN agitation 30 days 07/27/23 #60 tabs clonazepam 1 mg tablet 2 mg (2 x 1 mg) PO DAILY PRN 07/27/23 Anxiety 30 days #30 tabs dextroamphetamine-amphetamine 20 20 mg PO DAILY 30 days #30 tabs 07/27/23 mg tablet docusate sodium 100 mg capsule 100 mg PO BID PRN for constipation 07/27/23 30 days #30 caps emtricitabine 200 mg-tenofovir 1 tab PO DAILY 30 days #30 tabs 07/27/23 disoproxil fumarate 300 mg tablet estradiol 2 mg tablet 2 mg PO TID 30 days #90 tabs 07/27/23 famotidine 20 mg tablet 20 mg PO BID PRN GERD 30 days #60 07/27/23 tabs hydroxyzine pamoate 50 mg capsule 50 mg PO QID PRN Anxiety 30 days 07/27/23 #120 caps melatonin 3 mg tablet 6 mg (2 x 3 mg) PO BEDTIME PRN 07/27/23 sleep 30 days #60 tabs nicotine (polacrilex) 4 mg gum 4 mg PO Q2H PRN Nicotine Cravings 07/27/23 30 days #240 ea prazosin 5 mg capsule 10 mg (2 x 5 mg) PO BEDTIME 30 07/27/23 days #60 caps trazodone 100 mg tablet 200 mg (2 x 100 mg) PO BEDTIME 07/27/23 insomnia 30 days #60 tabs buprenorphine 8 mg-naloxone 2 mg 2 film sublingual DAILY #60 ea 08/31/23 sublingual film (Suboxone) spironolactone 100 mg tablet 100 mg PO BID 30 days #60 tabs 09/01/23 Allergies Allergy/AdvReac Type Severity Reaction Status Date / Time No Known Allergies Allergy Verified 08/31/23 15:34 Review of Systems Review of Systems: all other systems are reviewed and are negative Constitutional: Reports as per HPI and Reports no additional constitutional complaints Eyes: Reports as per HPI and Reports no additional eye complaints Reports system reviewed and no additional complaints, except as documented Cardiovascular: Reports as per HPI and Reports no additional cardiovascular complaints Respiratory: Reports as per HPI and Reports no additional respiratory complaints Gastrointestinal: Reports as per HPI and Reports no additional gastrointestinal complaints Genitourinary: Reports no additional female genitourinary complaints Musculoskeletal: Reports no additional musculoskeletal complaints Skin/Breast: Reports system reviewed and no additional complaints, except as docu Psychiatric: Reports no additional psychiatric complaints Endocrine: Reports no additional endocrine complaints Hematologic/Lymphatic: Reports no additional hematologic/lymphatic complaints Allergic/Immunologic: Reports no additional allergic/immunologic complaints Reports system reviewed and no additional complaints, except as documented and Reports Abnormal speech present [facility] Past Medical History Medical History Opioid use disorder, severe, on maintenance therapy Surgical History H/O breast augmentation Social History Social History Household Members: None Household Members Other:: lives in a shelter Housing: Other Housing Other:: Pt was living at a [facility] housing Do you presently have visiting nurse or other home services: No Unable to assess alcohol history related to: Refusing to respond Alcohol intake: never Patient Tobacco Use Status: Current someday Tobacco user Tobacco use type: Cigarette Cigarettes Per Day: 5 e-Cigarette/Vaping Use: Never Used Substance Use Type: Former Substance User service: No Current occupational status: disabled Sexual orientation: Don't Know Cognitive needs: No Hearing needs: No Vision needs: Yes Physical Exam Vital Signs: Vital Signs: Vital signs have been reviewed and appear to be correct. Blood pressure elevated. Heart rate normal. Respiratory rate normal. Temperature normal. Oxygen saturation normal. Vital Appearance: Alert. Oriented X3. No acute distress. Head: Normal external exam. Normocephalic. Atraumatic. No Palomo signs noted. No raccoon eyes noted Eyes: PERRLA. EOMI. Conjunctiva and sclera normal. Eyelids normal. ENT: TM's Normal. Pharynx normal. Uvula midline. Moist mucous membranes. No trismus noted. No drooling noted. No muffled voice noted. Neck: Normal inspection. Neck supple. FROM. No adenopathy. Thyroid Normal. No meningeal signs. No neck mass noted. CVS: Normal heart rate and rhythm. Heart sound normal. No murmurs noted. Pulses normal throughout. Respiratory: No respiratory distress. Painless inspiration. Breath sounds normal. No wheezes/rales/rhonchi noted. Chest nontender. No accessory muscle usage noted or decreased air movement noted. Abdomen: Soft and nontender. Bowel sounds normal in all 4 quadrants. No distention noted. No organomegaly noted. No visible injury noted. Back: No CVA tenderness. Full range of motion noted. Skin: Skin warm and dry. Normal skin color. Normal skin turgor. No rashes/lesions/lacerations noted. Extremities: No lower extremity edema. Extremities exhibit normal range of motion. Extremities nontender. Neuro: Oriented X 3. Cranial nerve exam: II-XII are grossly intact No motor deficit. No sensory deficit. Reflexes normal. Patient Orientation: Person, Place, Time and Situation, okay hygiene and grooming. Fair eye contact, attentive, no tics or tremors. Level of Consciousness: Awake, Appropriate and Alert Patient Behavior: Appropriate, Guarded, Cooperative and Anxious Mood Description: Constricted, Blunted and Apprehensive Affect Description: Constricted, Blunted and Apprehensive Patient Cognition Impaired: No Ability to Follow Directions: Excellent Speech Pattern: Clear, Appropriate and Spontaneous Speech, nonpressured, s pontaneous with regular rate and rhythm, normal volume and prosody. No dysarthria. Memory Description: Intact, Immediate Intact and Short Term Intact Hallucinations: None Delusions: Not Present Thought Process: Intact Thought Content: positive for Intact, positive for Logical, denies Homicidal Ideation, admitted to suicidal ideation with no plan. Depressive Symptoms: Not present. Judgement and Insight: Limited but adequate. Course Reevaluation(s) Reevaluation #1: Will start medical clearance and obtain care team consultation , will keep the patient on physician observation. Time: 18:30 Medical Decision Making Differential Diagnosis Differential Diagnoses: The differential diagnosis associated with the presentation includes ( Acute psychosis, electrolyte abnormality, severe anemia, substance abuse.) Admission/Observation Consideration of admission/observation: Escalation of care including admission/observation considered Lab Data MDM Lab Attestation statement: I reviewed the patient's lab results. Discharge Plan Discharge Clinical Impression: PTSD (post-traumatic stress disorder), Borderline personality disorder, Suicide ideation Patient Disposition: Still a Patient Prescriptions: No Action spironolactone 100 mg tablet 100 mg PO BID 30 Days Qty: 60 1RF dextroamphetamine-amphetamine 20 mg Tablet 20 mg PO DAILY 30 Days Qty: 30 0RF Rx Instructions: Partial Fill upon patient request. famotidine 20 mg Tablet 20 mg PO BID PRN (Reason: GERD) 30 Days Qty: 60 1RF MAG-AL 200-200 mg/5 mL Suspension 30 ml PO Q6H PRN (Reason: Heartburn/Nausea) Qty: 0 0RF benztropine 0.5 mg tablet 0.5 mg PO DAILY PRN (Reason: shakiness) 30 Days Qty: 30 1RF chlorpromazine 100 mg tablet 100 mg PO BEDTIME 30 Days Qty: 30 1RF clonazepam 1 mg tablet 2 mg PO DAILY PRN (Reason: Anxiety) 30 Days Qty: 30 0RF hydroxyzine pamoate 50 mg capsule 50 mg PO QID MDD 200mg PRN (Reason: Anxiety) 30 Days Qty: 120 1RF melatonin 3 mg tablet 6 mg PO BEDTIME PRN (Reason: sleep) 30 Days Qty: 60 1RF prazosin 5 mg capsule 10 mg PO BEDTIME 30 Days Qty: 60 1RF trazodone 100 mg tablet 200 mg PO BEDTIME 30 Days Qty: 60 1RF nicotine (polacrilex) 4 mg gum 4 mg PO Q2H PRN (Reason: Nicotine Cravings) 30 Days Qty: 240 1RF docusate sodium 100 mg capsule 100 mg PO BID PRN (Reason: for constipation) 30 Days Qty: 30 2RF estradiol 2 mg tablet 2 mg PO TID 30 Days Qty: 90 1RF chlorpromazine 50 mg tablet 50 mg PO BID PRN (Reason: agitation) 30 Days Qty: 60 1RF bupropion HCl 300 mg tablet extended release 24 hr 300 mg PO QAM 30 Days Qty: 30 1RF Rx Instructions: take with 150mg tab bupropion HCl 150 mg tablet extended release 24 hr 150 mg PO QAM 30 Days Qty: 30 1RF Rx Instructions: take with 300mg tab emtricitabine-tenofovir (TDF) 200-300 mg tablet 1 tab PO DAILY 30 Days Qty: 30 0RF buprenorphine-naloxone [Suboxone] 8-2 mg film 2 film sublingual DAILY Qty: 60 0RF
[2023-09-06 18:28] VITALS: BP 114/57; PULSE 96; RESP 18; TEMP 36.3; O2SAT 96; BMI 25.1
[2023-09-06 19:10] LABS: Amphetamine Screen Urine POSITIVE (Not Detect); Barbiturates, Urine Not Detected (Not Detect); Benzodiazepines Screen Urine Not Detected (Not Detect); Cannabinoid Screen Urine POSITIVE (Not Detect); Cocaine Screen Urine Not Detected (Not Detect); Fentanyl, urine Not Detected (Not Detect); Opiate Screen Urine Not Detected (Not Detect); Phencyclidine Screen Urine Not Detected (Not Detect)
[2023-09-06 19:30] LABS: Appearance Urine Clear; Color Urine Yellow; Glucose Urine UA Negative (Negative); Leukocyte Esterase Urine Negative (Negative); Nitrite Urine Negative (Negative); Specific Gravity - Urine 1.015 (1.005-1.025); Urine Blood Negative (Negative); Urine Ketones Negative (Negative); Urine Protein Negative (Neg-Trace)
--- NOTE | 2023-09-07 06:23 | PC.NURSE ---
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
--- NOTE | 2023-09-07 06:39 | MHC.EDTECH ---
pt Refused bloodwork at this time
--- NOTE | 2023-09-07 08:04 | PC.NURSE ---
Resumed care of patient at 0700 she is currently resting, day staff was able to have patient agree to get lab work/urine done so care team can assess patient, Q15min checks maintained
[2023-09-07 08:58] LABS: MANUAL DIFF FLAG NO
[2023-09-07 09:00] LABS: Basophils Percent Auto 0.3 % (0-2); Eosinophils Absolute Auto 0.2 X10*3/uL (0.0-0.4); Eosinophils Percent Auto 3.3 % (0-4); Hematocrit 39.4 % (42.0-52.0); Imm Gran Abs Auto 0.01 X10*3/uL (0.00-0.03); Imm Gran Pct Auto 0.2 % (0.0-0.4); Lymphocytes Absolute Auto 1.7 X10*3/uL (1.2-4.9); Lymphocytes Percent Auto 27.6 % (20-40); Mean Corpuscular HGB Conc 35.5 g/dl (31.0-36.0); Mean Corpuscular Hemoglobin 31.7 pg (27.0-33.0); Mean Corpuscular Volume 89.3 fL (80.0-98.0); Mean Platelet Volume 9.8 fL (9.4-12.4); Monocytes Absolute Auto 0.5 X10*3/uL (0.1-1.2); Monocytes Percent Auto 8.4 % (2-11); Neutrophils Absolute Auto 3.7 x10*3/uL (2.0-8.3); Neutrophils Percent Auto 60.2 % (45-73); Platelet Count 223 X10*3/uL (160-400); Red Blood Count 4.41 X10*6/uL (4.60-5.80); White Blood Count 6.1 X10*3/uL (4.8-10.8)
[2023-09-07 09:16] LABS: Alanine Aminotransferase 21 U/L (0-40); Albumin Level 3.9 g/dL (3.5-5.0); Alkaline Phosphatase 44 U/L (39-117); Anion Gap 10 (12-20); Aspartate Amino Transferase 22 U/L (5-37); Bilirubin Direct 0.2 mg/dL (0.0-0.5); Bilirubin Total 0.5 mg/dL (0.0-1.0); Blood Urea Nitrogen 19 mg/dL (9-16); Calcium 8.9 mg/dL (8.4-10.2); Carbon Dioxide 25 mmol/L (22-29); Chloride 107 mmol/L (96-108); Creatinine Clr Calc Pharmacy 122.6; Estimated Glomerular Filt Rate > 60; Ethanol < 10 mg/dL; Glucose Random 115 mg/dL (60-115); Potassium 4.3 mmol/L (3.3-5.1); Sodium 138 mmol/L (135-145); Total Protein 6.9 g/dL (6.5-8.0)
[2023-09-07 09:38] LABS: Influenza A PCR NEGATIVE (Negative); Influenza B PCR NEGATIVE (Negative); Resp Syncy Virus RNA Qual PCR NEGATIVE (Negative); SARS COV2 PCR INHOUSE NEGATIVE (Negative)
--- NOTE | 2023-09-07 10:05 | MHC.CARE ---
Patient evaluated by the CARE Team, determined not to need inpatient psychiatric treatment at this time. Plan to D/C home following morning medications.
--- NOTE | 2023-09-07 10:15 | PHA.MEDREC ---
Pharmacy Consult ? Medication Reconciliation Pharmacy has reviewed the medication reconciliation done by RN. Patient had list from [facility]
== END 2023-09-07 10:30 | disposition home or self-care (01) ==
PROVIDERS: Emergency Medicine; Emergency Provider Emergency Medicine Emergency Medical Services
DX: F43.10 Post-traumatic stress disorder, unspecified (principal); F60.3 Borderline personality disorder; R45.851 Suicidal ideations; F17.210 Nicotine dependence, cigarettes, uncomplicated; Z20.822 Contact with and (suspected) exposure to COVID-19; Z20.828 Contact with and (suspected) exposure to other viral communicable diseases; Z71.6 Tobacco abuse counseling; Z79.899 Other long term (current) drug therapy
CPT/HCPCS: 0241U; 36415; 80048; 80076; 80307; 81003; 85025; 99284; S9485

== ENCOUNTER 2023-09-14 12:03 | Emergency (ER) | payer OTHER, SELFPAY ==
[2023-09-14 12:07] VITALS: BP 130/95; PULSE 103; RESP 20; TEMP 36.1; O2SAT 97; BMI 24.3
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
--- NOTE | 2023-09-14 13:49 | PC.NURSE ---
this nurse went to obtain a list of PCPs for the patient and the patient and family member had gotten angry due to not being able to get vaccinated in the ED and left without discharge paperwork.
--- NOTE | 2023-09-14 13:59 | PC.NURSE ---
per provider patient will be eloped as they had not finished exam or giving them PCP options.
[2023-09-15 04:57] LABS: HBS Num1 > 1000.00 mIU/mL (0-7.99); HBc Num1 0.05 S/CO (0.00-0.79); HBsAGNum1 0.34 S/CO (0.00-0.99); HIV AB/AG Nonreactive (Nonreactive); HIV Num 1 0.09 S/CO (0.00-0.99); Hepatitis B Core Antibody Nonreactive (Nonreactive); Hepatitis B Surface Antigen Negative (Negative); ~HepC Num1 12.41 S/CO (0.00-0.79); ~Hepatitis B Surface Antibody REACTIVE (Nonreactive); ~Hepatitis C Antibody Reactive (Nonreactive)
== END 2023-09-14 14:10 | disposition left against medical advice (07) ==
PROVIDERS: Physician Assistant; Emergency Provider Emergency Medicine
DX: Z20.5 Contact with and (suspected) exposure to viral hepatitis (principal)
CPT/HCPCS: 36415; 80076; 85025; 86704; 86706; 86803; 87340; 87389; 99282; 99283

== ENCOUNTER 2023-10-04 09:22 | Outpatient (AMB) | payer OTHER, SELFPAY ==
--- NOTE | 2023-10-04 09:24 | A.OFFVISCC_ITS ---
Intake Vital Signs 10/04/23 09:29 BP 140/80 H Blood Pressure Location Lt radial Position Sitting Respiration 19 Pulse 93 Pulse Source Pulse Oximeter Oxygen Delivery Method Room Air Intake Visit Reasons: MAT VISIT Allergies No Known Allergies Allergy (Verified 09/14/23 12:09) HPI MAT VISIT HPI Details Patient presents for follow up No issues with recovery Still at [facility] spending time with his girlfriend Planning to decrease dose further. Discussed strategies for doing so, encouraged to decrease slowly if possible [facility] Medical History Opioid use disorder, severe, on maintenance therapy Surgical History H/O breast augmentation Social History Household Members: None Household Members Other:: lives in a [facility] Housing: Other Housing Other:: Pt was living at a [facility] housing Do you presently have visiting nurse or other home services: No Unable to assess alcohol history related to: Refusing to respond Alcohol intake: never Patient Tobacco Use Status: Current someday Tobacco user Tobacco use type: Cigarette Cigarettes Per Day: 5 e-Cigarette/Vaping Use: Never Used Substance Use Type: Marijuana service: No Current occupational status: disabled Sexual orientation: Don't Know Cognitive needs: No Hearing needs: No Vision needs: Yes Review of Systems Const Reports as per HPI and Reports no additional complaints Physical Exam Vital Signs: Last Vital Signs Pulse 93 10/04/23 09:29 Resp 19 10/04/23 09:29 BP 140/80 H 10/04/23 09:29 Oxygen Delivery Method Room Air 10/04/23 09:29 Const General: cooperative and no acute distress Psych Appearance: well kempt Speech and movement: Clear speech present Affect: normal affect Attitude: cooperative Assessment & Plan Assessment & Plan (1) Opioid use disorder, severe, in sustained remission: Code(s): F11.21 - Opioid dependence, in remission Plan: * tolerating 16mg QD * considering decreasing dose further--encouraged to call office with any questions or concerns * follow up 4 weeks Coding Level of Care Code Est Pt Level 3 (49134) Diagnoses Opioid use disorder, severe, in sustained remission F11.21
[2023-10-04 09:29] VITALS: BP 140/80; PULSE 93; RESP 19
== END 2023-10-04 09:46 | disposition home or self-care (01) ==
PROVIDERS: PCP Nurse Practitioner Family; Visit Provider Nurse Practitioner Psychiatric/Mental Health
DX: F11.21 Opioid dependence, in remission (principal)
CPT/HCPCS: 99213

== ENCOUNTER → 2023-10-04 09:22 | Outpatient (BNVA) | payer OTHER, SELFPAY | PROVIDERS: PCP Nurse Practitioner Family; Visit Provider Nurse Practitioner Psychiatric/Mental Health | DX: F11.20 Opioid dependence, uncomplicated (principal) | CPT/HCPCS: 99212 ==

== ENCOUNTER 2023-10-14 19:51 | Emergency (ER) | payer OTHER, SELFPAY ==
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
[2023-10-14 20:49] VITALS: BP 132/74; BP 96/56; PULSE 82; PULSE 83; RESP 17; TEMP 36.6; O2SAT 97; BMI 24.4
[2023-10-14 21:18] LABS: Appearance Urine Clear; Color Urine Yellow; Glucose Urine UA Negative (Negative); Leukocyte Esterase Urine Negative (Negative); Nitrite Urine Negative (Negative); PH 5.5 (5.0-9.0); Specific Gravity - Urine 1.015 (1.005-1.025); Urine Blood Negative (Negative); Urine Ketones Negative (Negative); Urine Protein Negative (Neg-Trace)
[2023-10-14 21:21] LABS: Bacteria Urine None Seen (None Seen); Hyaline Casts Urine 0-2 /LPF (0-2); RBC Urine 0-2 /HPF (0-2); Squamous Epithelial Cell Urine 0-2 /HPF (0-2); WBC Urine 0-5 /HPF (0-5)
[2023-10-14 21:24] LABS: Amphetamine Screen Urine POSITIVE (Not Detect); Barbiturates, Urine Not Detected (Not Detect); Benzodiazepines Screen Urine Not Detected (Not Detect); Cannabinoid Screen Urine Not Detected (Not Detect); Cocaine Screen Urine Not Detected (Not Detect); Fentanyl, urine Not Detected (Not Detect); Opiate Screen Urine Not Detected (Not Detect); Phencyclidine Screen Urine Not Detected (Not Detect)
[2023-10-14 21:27] LABS: MANUAL DIFF FLAG NO
[2023-10-14] MEDS: Ibuprofen 600 MG TABLET PO (21:27)
[2023-10-14] MEDS: Diphth,Pertus(ACell),Tet Adult 0.5 ML SYRINGE IM (21:27)
[2023-10-14 21:28] LABS: Basophils Absolute Auto 0.1 X10*3/uL (0.0-0.2); Basophils Percent Auto 0.6 % (0-2); Eosinophils Absolute Auto 0.4 X10*3/uL (0.0-0.4); Eosinophils Percent Auto 4.3 % (0-4); Hematocrit 35.3 % (42.0-52.0); Hemoglobin 12.6 g/dl (14.0-18.0); Imm Gran Abs Auto 0.02 X10*3/uL (0.00-0.03); Imm Gran Pct Auto 0.2 % (0.0-0.4); Lymphocytes Absolute Auto 2.4 X10*3/uL (1.2-4.9); Mean Corpuscular HGB Conc 35.7 g/dl (31.0-36.0); Mean Corpuscular Hemoglobin 31.8 pg (27.0-33.0); Mean Corpuscular Volume 89.1 fL (80.0-98.0); Mean Platelet Volume 9.5 fL (9.4-12.4); Monocytes Absolute Auto 0.7 X10*3/uL (0.1-1.2); Monocytes Percent Auto 8.5 % (2-11); Neutrophils Percent Auto 58.4 % (45-73); Platelet Count 228 X10*3/uL (160-400); Red Blood Count 3.96 X10*6/uL (4.60-5.80); Red Cell Distribution Width 11.7 % (11.0-16.0); White Blood Count 8.5 X10*3/uL (4.8-10.8)
[2023-10-14 21:46] LABS: Alanine Aminotransferase 17 U/L (0-40); Albumin Level 3.5 g/dL (3.5-5.0); Alkaline Phosphatase 45 U/L (39-117); Anion Gap 10 (12-20); Aspartate Amino Transferase 17 U/L (5-37); Bilirubin Direct < 0.2 mg/dL (0.0-0.5); Bilirubin Total 0.1 mg/dL (0.0-1.0); Blood Urea Nitrogen 19 mg/dL (9-16); Calcium 8.5 mg/dL (8.4-10.2); Carbon Dioxide 27 mmol/L (22-29); Chloride 104 mmol/L (96-108); Estimated Glomerular Filt Rate > 60; Ethanol < 10 mg/dL; Glucose Random 89 mg/dL (60-115); Potassium 3.9 mmol/L (3.3-5.1); Sodium 137 mmol/L (135-145); Total Protein 6.1 g/dL (6.5-8.0)
[2023-10-14] MEDS: Melatonin 3 MG TABLET 6 MG PO (21:49)
--- NOTE | 2023-10-14 23:52 | PC.NURSE ---
after 15 michelle placed by provider, gave client simple aftercare instructions for wound site, advised for date of removal
--- NOTE | 2023-10-15 08:55 | PHA.MEDREC ---
Pharmacy Consult ? Medication Reconciliation Pharmacy has completed the medication reconciliation. used list from [facility]
[2023-10-15] MEDS: Buprenorphine/Naloxone 4/1 mg FILM 1 FILM SUBLINGUAL (11:52)
[2023-10-15] MEDS: Buprenorphine/Naloxone 8/2 mg FILM 2 FILM SUBLINGUAL (11:52)
[2023-10-15] MEDS: buPROPion HCl XL 300 MG TAB.ER.24H PO (11:53)
[2023-10-15] MEDS: buPROPion HCl XL 150 MG TAB.ER.24H PO (11:53)
[2023-10-15] MEDS: Omeprazole 20 MG CAPSULE.DR PO (11:53)
[2023-10-15] MEDS: Emtricitabin/Tenofovir 200/300 TABLET 1 TAB PO (11:53)
[2023-10-15] MEDS: clonazePAM 1 MG TABLET 2 MG PO (12:06)
--- NOTE | 2023-10-15 12:14 | MHC.CARE ---
Per Emi, pt accepted [facility] for 10/15/23. ETA is next available. Pt accepted to [address], accepting is Dr. May, N2N is [phone]. Address [address], [address]
[2023-10-15 12:30] LABS: COVID-19 Test Negative (Negative); IDNOW Serial# 08D9AD1C
--- NOTE | 2023-10-15 14:04 | PC.NURSE ---
Osvaldo GOLDEN and adherent with AM medications except Adderall which she reports she doesn't want to take as she wants to sleep. No behavioral concerns this shift. Nurse to Nurse report given. Ambulance arrived to provide transport at 1405.
== END 2023-10-15 14:06 ==
PROVIDERS: Student in an Organized Health Care Education/Training Program; Emergency Provider Emergency Medicine
DX: F41.9 Anxiety disorder, unspecified (principal); S51.812A Laceration without foreign body of left forearm, initial encounter; X78.9XXA Intentional self-harm by unspecified sharp object, initial encounter; F11.20 Opioid dependence, uncomplicated; Y93.9 Activity, unspecified; Y92.199 Unspecified place in other specified residential institution as the place of occurrence of the external cause; Y99.9 Unspecified external cause status; F60.3 Borderline personality disorder; F43.10 Post-traumatic stress disorder, unspecified; F43.21 Adjustment disorder with depressed mood; F41.8 Other specified anxiety disorders; F32.4 Major depressive disorder, single episode, in partial remission; F64.0 Transsexualism; Z11.52 Encounter for screening for COVID-19; Z23 Encounter for immunization; Z79.899 Other long term (current) drug therapy
CPT/HCPCS: 12001; 36415; 80048; 80076; 80307; 81001; 85025; 87635; 90471; 90715; 99285; S9485

== ENCOUNTER 2023-11-01 09:28 | Outpatient (AMB) | payer OTHER, SELFPAY ==
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
[2023-11-01 09:48] VITALS: BP 128/74; PULSE 96; O2SAT 98; BMI 24.7
== END 2023-11-01 10:31 | disposition home or self-care (01) ==
PROVIDERS: PCP Nurse Practitioner Family; Visit Provider Nurse Practitioner Psychiatric/Mental Health
DX: F11.21 Opioid dependence, in remission (principal)
CPT/HCPCS: 99213

== ENCOUNTER → 2023-11-01 09:28 | Outpatient (BNVA) | payer OTHER, SELFPAY | PROVIDERS: PCP Nurse Practitioner Family; Visit Provider Nurse Practitioner Psychiatric/Mental Health | DX: F11.21 Opioid dependence, in remission (principal) | CPT/HCPCS: 99212 ==

== ENCOUNTER 2023-11-29 09:24 | Outpatient (AMB) | payer OTHER, SELFPAY ==
--- NOTE | 2023-11-29 09:32 | A.OFFVISCC_ITS ---
Intake Vital Signs 11/29/23 09:41 BP 138/90 H Blood Pressure Location Lt radial Position Sitting Pulse 126 H Pulse Source Pulse Oximeter Pulse Oximetry (%) 97 Oxygen Delivery Method Room Air Intake Visit Reasons: MAT VISIT Intake Note: the patient for a mat visit Allergies No Known Allergies Allergy (Verified 11/29/23 09:33) Do you need a note to return to daycare/school/sports/work: No HPI MAT VISIT HPI Details Patient presents for follow up Doing well with recovery Has been spending time with her girlfriend No questions or concerns related to recovery Discussed increasing time btwn appts as she is in a supportive and structured environment --patient agreeable [facility] Medical History Opioid use disorder, severe, on maintenance therapy Surgical History H/O breast augmentation Social History Household Members: None Household Members Other:: lives in a fci Housing: Other Housing Other:: Pt was living at a [facility] housing Do you presently have visiting nurse or other home services: No Unable to assess alcohol history related to: Refusing to respond Alcohol intake: never Patient Tobacco Use Status: Current someday Tobacco user Tobacco use type: Cigarette Cigarettes Per Day: 5 e-Cigarette/Vaping Use: Never Used Substance Use Type: Marijuana service: No Current occupational status: disabled Sexual orientation: Don't Know Cognitive needs: No Hearing needs: No Vision needs: Yes Review of Systems Const Reports as per HPI Physical Exam Vital Signs: Last Vital Signs Pulse 126 H 11/29/23 09:41 BP 138/90 H 11/29/23 09:41 Pulse Ox 97 11/29/23 09:41 Oxygen Delivery Method Room Air 11/29/23 09:41 Const General: cooperative and well groomed Nutritional Appearance: average body habitus Orientation/consciousness: patient oriented x3 Limitations: no limitations Neuro General: patient oriented x3 Psych Appearance: well kempt Speech and movement: Normal speech and movement present Affect: Depressed mood present and Blunted affect present Attitude: cooperative and Guarded attititude/behavior present Thought process: Normal thought process present Thought content: Normal thought content present Insight: Good insight present (Psych) Judgement: Good judgement present (Psych) Assessment & Plan Assessment & Plan (1) Opioid use disorder, severe, in sustained remission: Code(s): F11.21 - Opioid dependence, in remission Plan: * continue suboxone at current dose * follow up 2 months Medications: Refilled buprenorphine-naloxone 8-2 mg (Suboxone) suboxone 8mg films- 2 films every am 2 film sublingual DAILY@0800 60 ea 1RF Coding Level of Care Code Est Pt Level 3 (09569) Diagnoses Opioid use disorder, severe, in sustained remission F11.21
[2023-11-29 09:41] VITALS: BP 138/90; PULSE 126; O2SAT 97
== END 2023-11-29 09:56 | disposition home or self-care (01) ==
PROVIDERS: PCP Nurse Practitioner Family; Visit Provider Nurse Practitioner Psychiatric/Mental Health
DX: F11.21 Opioid dependence, in remission (principal)
CPT/HCPCS: 99213

== ENCOUNTER → 2023-11-29 09:24 | Outpatient (BNVA) | payer OTHER, SELFPAY | PROVIDERS: PCP Nurse Practitioner Family; Visit Provider Nurse Practitioner Psychiatric/Mental Health | DX: F11.21 Opioid dependence, in remission (principal); Z79.899 Other long term (current) drug therapy; Z51.81 Encounter for therapeutic drug level monitoring | CPT/HCPCS: 99212 ==

== ENCOUNTER 2023-12-20 16:47 | Outpatient (AMB) | payer OTHER, SELFPAY ==
[2023-12-20 16:50] VITALS: BP 112/70; PULSE 98; RESP 13; TEMP 36.1; O2SAT 99; BMI 26.4
--- NOTE | 2023-12-20 16:50 | A.OFFPC_ITS ---
Vital Signs 12/20/23 16:50 Height 6 ft 1 in Weight 200 lb 8 oz BMI 26.4 BP 112/70 Blood Pressure Location Rt brachial Position Sitting Respiration 13 Pulse 98 Pulse Source Pulse Oximeter Temp 97 F Temp Source Temporal Artery Scan Pulse Oximetry (%) 99 Oxygen Delivery Method Room Air Intake Visit Reasons: follow up meds Intake Note: Patient needs refill on estradial. 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 Accompanied by: Self / Same As Patient Allergies No Known Allergies Allergy (Verified 12/20/23 17:10) Medication List - Last Reconciled 12/20/23 by Jaren Shelton CNP benztropine 0.5 mg PO DAILY PRN buprenorphine-naloxone 8-2 mg (Suboxone) 2 film sublingual DAILY@0800 bupropion HCl XL 300 mg PO QAM@0800 bupropion HCl XL 150 mg PO QAM@0800 chlorpromazine 50 mg PO DAILY PRN chlorpromazine 100 mg PO BEDTIME@2100 clonazepam 2 mg (2 x 1 mg) PO DAILY PRN 30 days dextroamphetamine-amphetamine 30 mg ER 30 mg PO QAM docusate sodium 100 mg PO DAILY MRX1 PRN emtricitabine-tenofovir (TDF) 200-300 mg (Truvada) 1 tab PO DAILY@0800 30 days estradiol (Estrace) 2 mg PO TID@0800,1500,2100 hydroxyzine pamoate 50 mg PO QID PRN 30 days MDD 200mg melatonin 6 mg PO BEDTIME@2100 omeprazole 20 mg PO DAILY@0800 30 days prazosin 10 mg PO BEDTIME@2100 spironolactone (Aldactone) 100 mg PO BID@0800,2100 trazodone 200 mg PO BEDTIME@2100 Tobacco use date assessed: 12/20/23 Dental Screening Dental Screen Date: 12/20/23 Did you have a dental visit in the last 12 months?: Yes Did you have a dental problem in the last 6 months where you did not have access to dental care?: No Was dental information given to patient?: Patient has dentist HPI HPI Comments History of Present Illness Details 33-year-old assigned male at , now female, presents for refill her estradiol. He notes that he has been on the medication for over 15 years Her former PCP is VERNON who is no longer with the practice. She has a transfer of care appointment with Dr. Nance in May, She offers no complaints and denies acute symptoms at this time She notes that she will wait to have her complete physical exam done by her next PCP [facility] Medical History Opioid use disorder, severe, on maintenance therapy Surgical History H/O breast augmentation Social History Household Members: None Household Members Other:: lives in a senior living Housing: Other Housing Other:: Pt was living at a [facility] housing Do you presently have visiting nurse or other home services: No Unable to assess alcohol history related to: Refusing to respond Alcohol intake: never Patient Tobacco Use Status: Current someday Tobacco user Tobacco use type: Cigarette Cigarette Packs Per Day: 0.25 Cigarettes Per Day: 5 Years Smoked: 5 e-Cigarette/Vaping Use: Never Used Substance Use Type: Marijuana service: No Current occupational status: disabled Sexual orientation: Don't Know Cognitive needs: No Hearing needs: No Vision needs: No Questionnaire HANNAH-7 AMB Questionnaire HANNAH-7 Date HANNAH - 7 assessed: 08/11/23 Source: Developed by Drs. Obdulio Bolivar, Christelle Ramirez, Kevan Acosta and colleagues, with an educational nimesh from [employer]. Review of Systems Const Details: Const Denies chills, Denies fatigue, Denies fever(s), Denies headache(s) and Denies weakness ENT Denies dizziness and Denies headache(s) Card Denies chest pain, Denies lightheadedness, Denies dyspnea and Denies other ( Palpitations) Resp Denies cough, Denies dyspnea, Denies wheezing and Denies other ( shortness of breath) GI Denies abdominal pain, Denies melena, Denies hematochezia, Denies change in bowel habits, Denies dyspepsia and Denies nausea Denies hematuria and Denies dysuria Musc Denies abnormal gait, Denies myalgias, Denies arthralgias, Denies numbness and Denies tingling Skin/Breast Denies rash, Denies unusual bruising and Denies wounds Neuro Denies abnormal gait, Denies dizziness, Denies headache(s), Denies memory loss, Denies numbness, Denies Sensory deficit (Neuro), Denies tingling and Denies weakness Psych Denies anxiety, Denies depression, Denies memory loss Endo Denies cold intolerance, Denies fatigue, Denies heat intolerance, Denies polydipsia and Denies polyuria Aller/Immun Denies wheezing Physical exam (Primary Care) Vital Signs: Last Vital Signs Temp 97 F 12/20/23 16:50 Pulse 98 12/20/23 16:50 Resp 13 12/20/23 16:50 BP 112/70 12/20/23 16:50 Pulse Ox 99 12/20/23 16:50 Oxygen Delivery Method Room Air 12/20/23 16:50 BMI result Body Mass Index 26.4 Tobacco/Smoking Status: Tobacco use Status Tobacco use date assessed 12/20/23 12/20/23 17:00 Patient Tobacco Use Status Current someday Tobacco 12/20/23 17:00 Tobacco use type Cigarette 12/20/23 17:00 e-Cigarette/Vaping Use Never Used 12/20/23 17:00 Const Other: General: no acute distress and well developed Nutritional Appearance: well nourished Orientation/consciousness: patient oriented x3 HENMT Head: Yes normocephalic and Yes atraumatic Eyes General: appearance normal, both eyes and all related structures Pupils: Equal, round and reactive pupils present EOM: EOMs intact bilaterally Resp Effort & Inspection: normal respiratory effort Auscultation: clear to auscultation bilaterally Cardio Rate: regular rate Rhythm: regular rhythm Heart sounds: S1 normal heart sound present, S2 normal heart sound present, no gallops, no murmurs and no rubs GI Palpation (GI): No Abdominal aortic bruit present, Soft to palpation, nontender, No hepatosplenomegaly present and No Rebound tenderness present Auscultation: normal bowel sounds General: Yes no CVA tenderness Back/Spine/Pelvis Back: no CVA tenderness Cervical Spine: cervical ROM normal and No Cervical spine tenderness Thoracic/Lumbar Spine: thoraco-lumbar ROM normal, No pain with thoraco-lumbar ROM, No thoracic spinal tenderness and No lumbar spinal tenderness Extrem General: Yes normal to inspection, No edema and No calf tenderness Skin General: warm and dry. Normal skin color. Normal skin turgor Neuro General: patient oriented x3, gait normal and no focal neuro deficit Cranial nerves: Yes Equal, round and reactive pupils present Cognition (Neuro): normal cognition Gait exam (Neuro): Normal gait present Sensory Exam: No Sensory deficit (Neuro) Psych Appearance: grossly normal Affect: normal affect Attitude: cooperative Thought process: Normal thought process present Assessment and Plan Assessment & Plan (1) History of hormone replacement therapy: Code(s): Z92.29 - Personal history of other drug therapy Plan: Estradiol 2 mg 3 times daily reordered. Advised to take as prescribed. Instructed on the medication's risks, benefits, and adverse reactions. Advised to follow-up with symptoms or concerns. Follow-up with new PCP as planned. Return sooner with symptoms or concerns. Verbalized understanding and agreed with the plan. Medications: Changed From estradiol (Estrace) 2 mg PO TID@0800,1500,2100 To estradiol (Estrace) 2 mg PO TID@0800,1500,2100 30 days 90 tabs 3RF Coding Level of Care Code Est Pt Level 3 (09056) Diagnoses History of hormone replacement therapy Z92.29
== END 2023-12-20 17:28 | disposition home or self-care (01) ==
PROVIDERS: PCP Nurse Practitioner Family; Visit Provider Nurse Practitioner Family
DX: Z92.29 Personal history of other drug therapy (principal)
CPT/HCPCS: 99213

== ENCOUNTER 2024-01-30 11:08 | Outpatient (AMB) | payer OTHER, SELFPAY ==
[2024-01-30 11:11] VITALS: BP 138/90; PULSE 101; O2SAT 98
--- NOTE | 2024-01-30 11:11 | A.OFFVISCC_ITS ---
Vital Signs 01/30/24 11:11 BP 138/90 H Blood Pressure Location Rt brachial Position Sitting Pulse 101 H Pulse Source Pulse Oximeter Pulse Oximetry (%) 98 Oxygen Delivery Method Room Air Intake Visit Reasons: MAT visit Allergies No Known Allergies Allergy (Verified 12/20/23 17:10) HPI HPI MAT visit: Details: Pt presents for OUD (in remission) treatment follow up Currently being prescribed Suboxone 16mg daily Denies any side effects related to medication Still living at [facility]. house spent time with her mother over Mothers day no questions or concerns at this time [facility] Medical History Opioid use disorder, severe, on maintenance therapy Surgical History H/O breast augmentation Social History Household Members: None Household Members Other:: lives in a alf Housing: Other Housing Other:: Pt was living at a [facility] housing Do you presently have visiting nurse or other home services: No Unable to assess alcohol history related to: Refusing to respond Alcohol intake: never Patient Tobacco Use Status: Current someday Tobacco user Tobacco use type: Cigarette Cigarette Packs Per Day: 0.25 Cigarettes Per Day: 5 Years Smoked: 5 e-Cigarette/Vaping Use: Never Used Substance Use Type: Marijuana service: No Current occupational status: disabled Sexual orientation: Don't Know Cognitive needs: No Hearing needs: No Vision needs: No Review of Systems Const Reports as per HPI and Reports no additional complaints Physical Exam Vital Signs: Last Vital Signs Pulse 101 H 01/30/24 11:11 BP 138/90 H 01/30/24 11:11 Pulse Ox 98 01/30/24 11:11 Oxygen Delivery Method Room Air 01/30/24 11:11 Const General: cooperative and well groomed Nutritional Appearance: average body habitus Orientation/consciousness: patient oriented x3 Limitations: no limitations Neuro General: patient oriented x3 Psych Appearance: well kempt Speech and movement: Normal speech and movement present Attitude: cooperative Thought process: Normal thought process present Thought content: Normal thought content present Insight: Good insight present (Psych) Judgement: Good judgement present (Psych) Assessment & Plan Assessment & Plan (1) Opioid use disorder, severe, in sustained remission: Code(s): F11.21 - Opioid dependence, in remission Category: Medical Plan: * continue suboxone at current dose * follow up 2 months
== END 2024-01-30 11:32 | disposition home or self-care (01) ==
PROVIDERS: PCP Nurse Practitioner Family; Visit Provider Nurse Practitioner Psychiatric/Mental Health
DX: F11.21 Opioid dependence, in remission (principal)
CPT/HCPCS: 99213

== ENCOUNTER → 2024-01-30 11:08 | Outpatient (BNVA) | payer OTHER, SELFPAY | PROVIDERS: PCP Nurse Practitioner Family; Visit Provider Nurse Practitioner Psychiatric/Mental Health | DX: F11.21 Opioid dependence, in remission (principal) | CPT/HCPCS: 99212 ==

== ENCOUNTER 2024-02-10 18:12 | Emergency (ER) | payer OTHER, SELFPAY ==
[2024-02-10 18:26] VITALS: BP 142/88; PULSE 118; O2SAT 96
[2024-02-10 18:41] VITALS: BMI 26.4
--- NOTE | 2024-02-10 18:49 | MHC.CARE ---
Spoke with [facility] staff ([phone]) who report that Pt got upset that dinner was not made right away around 5:15 PM because we did not have a lot of staff at the time to assist. It is reported that Pt became agitated and was verbally aggressive towards staff. Pt's girlfriend was visiting at the time and offered to help assist with making food to which Pt declined and continued to escalate with staff. He went to the extreme and made some superficial cuts on the forearm, so we just called EMS at that point. [facility] staff report that this is baseline behavior for Pt; It's not the first time they have gotten upset about dinner or cut themselves. They usually escalate to this point when they feel they are not getting enough attention. Staff reports that Pt is medication-compliant and would have no concerns about risk if Pt were to be discharged back to the [facility] upon dispo. Pt does have an instance of cutting in the past where they required michelle for their lacerations.
[2024-02-10 18:56] LABS: MANUAL DIFF FLAG NO
[2024-02-10 18:57] LABS: Basophils Absolute Auto 0.1 X10*3/uL (0.0-0.2); Basophils Percent Auto 0.9 % (0-2); Eosinophils Absolute Auto 0.3 X10*3/uL (0.0-0.4); Hematocrit 36.8 % (37.0-47.0); Hemoglobin 13.5 g/dl (12.0-16.0); Imm Gran Abs Auto 0.01 X10*3/uL (0.00-0.03); Imm Gran Pct Auto 0.2 % (0.0-0.4); Lymphocytes Absolute Auto 1.5 X10*3/uL (1.2-4.9); Mean Corpuscular HGB Conc 36.7 g/dl (31.0-35.0); Mean Corpuscular Hemoglobin 32.8 pg (27.0-33.0); Mean Corpuscular Volume 89.3 fL (80.0-98.0); Mean Platelet Volume 9.4 fL (9.4-12.3); Monocytes Absolute Auto 0.6 X10*3/uL (0.1-1.2); Monocytes Percent Auto 9.1 % (2-11); Neutrophils Absolute Auto 4.1 x10*3/uL (2.0-8.3); Neutrophils Percent Auto 61.8 % (45-73); Platelet Count 246 X10*3/uL (160-400); Red Blood Count 4.12 X10*6/uL (4.20-5.50); Red Cell Distribution Width 11.8 % (11.0-16.0); White Blood Count 6.6 X10*3/uL (4.8-10.8)
[2024-02-10 19:02] LABS: Appearance Urine Clear; Color Urine Yellow; Glucose Urine UA Negative (Negative); Leukocyte Esterase Urine Negative (Negative); Nitrite Urine Negative (Negative); Specific Gravity - Urine 1.025 (1.005-1.025); Urine Blood Negative (Negative); Urine Ketones Negative (Negative); Urine Protein Negative (Neg-Trace)
[2024-02-10 19:08] LABS: Amphetamine Screen Urine POSITIVE (Not Detect); Barbiturates, Urine Not Detected (Not Detect); Benzodiazepines Screen Urine Not Detected (Not Detect); Buprenorphine Scr Positive (Not Detect); Cannabinoid Screen Urine Not Detected (Not Detect); Cocaine Screen Urine Not Detected (Not Detect); Fentanyl, urine Not Detected (Not Detect); Methadone Screen, Urine Not Detected (Not Detect); Opiate Screen Urine Not Detected (Not Detect); Oxycodone Screen Urine Not Detected (Not Detect); Phencyclidine Screen Urine Not Detected (Not Detect)
[2024-02-10 19:17] LABS: Ethanol < 10 mg/dL
--- NOTE | 2024-02-10 19:30 | ED.PSYCH ---
HPI - Psych General Chief Complaint: Behavioral Concerns Stated Complaint: CUT L FOREARM MULTIPLE TIMES,SECT 12 Time Seen by Provider: 02/10/24 19:30 Source: patient and EMS Mode of arrival: EMS Limitations: no limitations History of Present Illness ED Provider: Ana Rosa MEMBRENO HPI Narrative: 33-year-old transgender male to female with history of opioid use disorder on Suboxone, anxiety, PTSD, borderline personality disorder, chronic suicidal ideation, chronic self harm with superficial cuts who presents to the ER from a [facility] for muscle self-harm behaviors, superficial cuts on the arms. She was last admitted here in July for similar behaviors. 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 Osvaldo reports that the staff member told her to ?just go slight your wrist already. ? Patient states she obtained a small blade and did several superficial cuts on her left forearm. She has a history of similar cuts that she states she did for other reasons. She denies any suicidal thoughts, homicidal thoughts, ongoing thoughts of self-harm. MD complaint: other (Self-harm) Onset (ago): hour(s) Duration: resolved prior to arrival History of same: Yes Relieving factors: none Exacerbating factors: other (Stress) Context: significant life stressor Associated symptoms: denies other symptoms Treatments prior to arrival: none Related Data Home Medications ?Medication ?Instructions ?Recorded ?Confirmed benztropine 0.5 mg tablet 0.5 mg PO DAILY PRN shakiness 09/06/23 12/20/23 chlorpromazine 50 mg tablet 50 mg PO DAILY PRN agitation 09/06/23 12/20/23 bupropion HCl 150 mg 24 hr tablet, 150 mg PO QAM@0810/15/23 12/20/23 extended release bupropion HCl 300 mg 24 hr tablet, 300 mg PO QAM@79910/15/23 12/20/23 extended release chlorpromazine 100 mg tablet 100 mg PO BEDTIME@209910/15/23 12/20/23 docusate sodium 100 mg capsule 100 mg PO DAILY MRX1 PRN 10/15/23 12/20/23 Constipation melatonin 3 mg tablet 6 mg PO BEDTIME@2099 sleep 10/15/23 12/20/23 prazosin 5 mg capsule 10 mg PO BEDTIME@2100 10/15/23 12/20/23 trazodone 100 mg tablet 200 mg PO BEDTIME@2100 insomnia 10/15/23 12/20/23 dextroamphetamine-amphetamine ER 30 mg PO QAM 12/20/23 12/20/23 30 mg 24hr capsule,extend release Previous Rx's ?Medication ?Instructions ?Recorded clonazepam 1 mg tablet 2 mg (2 x 1 mg) PO DAILY PRN 07/27/23 Anxiety 30 days #30 tabs hydroxyzine pamoate 50 mg capsule 50 mg PO QID PRN Anxiety 30 days 07/27/23 #120 caps buprenorphine 8 mg-naloxone 2 mg 2 film sublingual DAILY@0800 #60 ea 11/29/23 sublingual film (Suboxone) emtricitabine 200 mg-tenofovir 1 tab PO DAILY@0800 30 days #30 12/16/23 disoproxil fumarate 300 mg tablet tabs (Truvada) estradiol 2 mg tablet (Estrace) 2 mg PO TID@0800,1500,2100 30 days 12/20/23 #90 tabs spironolactone 100 mg tablet 100 mg PO BID@0800,2100 30 days 01/02/24 (Aldactone) #60 tabs omeprazole 20 mg capsule,delayed 20 mg PO DAILY@0800 30 days #30 02/08/24 release caps Allergies Allergy/AdvReac Type Severity Reaction Status Date / Time No Known Allergies Allergy Verified 02/10/24 18:45 Review of Systems Review of Systems: Yes all other systems are reviewed and are negative [facility] Past Medical History Medical History Opioid use disorder, severe, on maintenance therapy Surgical History H/O breast augmentation Social History Social History Household Members: None Household Members Other:: lives in a [facility] Housing: Other Housing Other:: Pt was living at a [facility] housing Do you presently have visiting nurse or other home services: No Unable to assess alcohol history related to: Refusing to respond Alcohol intake: never Patient Tobacco Use Status: Current someday Tobacco user Tobacco use type: Cigarette Cigarette Packs Per Day: 0.25 Cigarettes Per Day: 5 Years Smoked: 5 e-Cigarette/Vaping Use: Never Used Substance Use Type: Marijuana Advance Directives: No Advance Directives Information Provided: No Do you have a plan to hurt others: No Plan service: No Current occupational status: disabled Sexual orientation: Don't Know Cognitive needs: No Hearing needs: No Vision needs: No Physical Exam Vital Signs: Vital Signs: Last Vital Signs Temp 97.8 F 02/10/24 20:21 Pulse 85 02/10/24 20:21 Resp 17 02/10/24 20:21 BP 104/65 02/10/24 20:21 Pulse Ox 97 02/10/24 20:21 O2 Del Method Room Air 02/10/24 20:21 BMI result Body Mass Index 26.4 Appearance: Alert. Oriented X3. No acute distress. Head: normocephalic, atraumatic. Eyes: Pupils equal, round and reactive to light. Swelling of the left upper eyelid consistent with a chalazion ENT: Pharynx normal. No tonsillar swelling or exudate. Neck: Normal inspection. Neck supple. CVS: Normal heart rate and rhythm. Pulses normal. Respiratory: No respiratory distress. Breath sounds normal. Abdomen: Soft and nontender. +BS x4 Skin: Skin warm and dry. Normal skin color. Normal skin turgor. No yair left forearm with multiple superficial lacerations, 3 of them with active oozing, easily reapproximated. Underneath patient has thickened and scarred skin from prior cutting. es. Extremities: No lower extremity edema. No joint swelling. Neuro/psych: Oriented X 3. No motor deficit. No sensory deficit. CN II-XII intact. Normal speech and cognition. Normal thought process, no suicidal or homicidal thoughts. Acting appropriately. Course Reevaluation(s) Reevaluation #1: Physician observation started at 19:37. Patient placed in physician observation because patient is awaiting CARE team evaluation for the possible need of inpatient psych admission. At the time observation was started patient's vital signs were stable. Patient is alert and oriented. Neuro exam is non-focal. CV: RRR and lungs are clear. Will continue to monitor. Time: 19:37 Medical Decision Making Medical Decision Making MDM Narrative: 33-year-old female presents to the ER for evaluation of superficial lacerations to her left forearm sustained after she got into a verbal altercation with staff member [facility]. Wounds were assessed and stapled for closure. Tdap up-to-date. No active SI, HI, thoughts of further S self-harm. She reports her prior self-harm was for more personal reasons, this was for retaliation against a [facility] member and she intends to not perform any further self-harm behaviors. She is medically cleared at the time and pending care team evaluation. 2051 Patient seen and evaluated by the care team. [facility] has been contacted and did a full sweep with the patient's room. No sharp objects were identified. Altercation today seem to be the trigger for patient's dysregulation and behaviors. This is baseline for her. Comfortable discharge back to the [facility]. Safety plan in place. Wound care discussed with the patient. Stable for discharge home Differential Diagnosis Differential Diagnoses: The differential diagnosis associated with the presentation includes Retaliation, substance induced mood disorder, acute psychosis, schizophrenia, schizoaffective disorder, PTSD, bipolar disorder, major depression with psychotic features Admission/Observation Consideration of admission/observation: Escalation of care including admission/observation considered Lab Data [facility] Lab Attestation statement: I reviewed the patient's lab results. 02/10/24 18:49 Labs: Lab Results 02/10/24 Range/Units 18:49 WBC 6.6 (4.8-10.8) X10*3/uL RBC 4.12 L (4.20-5.50) X10*6/uL Hgb 13.5 (12.0-16.0) g/dl Hct 36.8 L (37.0-47.0) % MCV 89.3 (80.0-98.0) fL MCH 32.8 (27.0-33.0) pg MCHC 36.7 H (31.0-35.0) g/dl RDW 11.8 (11.0-16.0) % Plt Count 246 (160-400) X10*3/uL MPV 9.4 (9.4-12.3) fL Immature Gran % (Auto) 0.2 (0.0-0.4) % Neut % (Auto) 61.8 (45-73) % Lymph % (Auto) 23.0 (20-40) % [place] % (Auto) 9.1 (2-11) % Eos % (Auto) 5.0 H (0-4) % Baso % (Auto) 0.9 (0-2) % Lymph # (Auto) 1.5 (1.2-4.9) X10*3/uL [place] # (Auto) 0.6 (0.1-1.2) X10*3/uL Eos # (Auto) 0.3 (0.0-0.4) X10*3/uL Baso # (Auto) 0.1 (0.0-0.2) X10*3/uL Abs Immat Gran (auto) 0.01 (0.00-0.03) X10*3/uL Absolute Neuts (auto) 4.1 (2.0-8.3) x10*3/uL Absolute Nucleated RBC 0.000 (0.0-0.012) X10*3/uL Nucleated RBC % (auto) 0.0 (0.0-0.2) /100WBC Urine Color Yellow Urine Appearance Clear Urine pH 6.0 (5.0-9.0) Ur Specific [place] 1.025 (1.005-1.025) Urine Protein Negative (Neg-Trace) mg/dL Urine Glucose (UA) Negative (Negative) mg/dL Urine Ketones Negative (Negative) mg/dL Urine Blood Negative (Negative) Urine Nitrite Negative (Negative) Ur Leukocyte Esterase Negative (Negative) Urine Opiates Screen Not Detected (Not Detect) Ur Buprenorphine Scrn Positive H (Not Detect) ng/mL Ur Oxycodone Screen Not Detected (Not Detect) ng/mL Urine Methadone Screen Not Detected (Not Detect) ng/mL Urine Fentanyl Screen Not Detected (Not Detect) Ur Barbiturates Screen Not Detected (Not Detect) Ur Phencyclidine Scrn Not Detected (Not Detect) Ur Amphetamines Screen POSITIVE H (Not Detect) U Benzodiazepines Scrn Not Detected (Not Detect) Urine Cocaine Screen Not Detected (Not Detect) U Marijuana (THC) Screen Not Detected (Not Detect) Ethyl Alcohol < 10 mg/dL Independent Historian Clinical information obtained from an independent historian. History obtained from or confirmed by: EMS External Record Review External record reviewed: Inpatient record Prescription Management I considered prescription management with: Pain Medication and Antibiotic Chronic Conditions Patient?s care impacted by: Other (Borderline personality disorder) Social Determinants Patient?s care significantly limited by Social Determinants of Health including: Problems related to primary support group and Other Social Determinant of Health Procedures Laceration Laceration 1: Site: upper extremity Side (If applicable): left Size (cm): 3 Description: linear Depth: simple, single layer Pre-repair: irrigated extensively Skin layer closed with: other (Rocky) Number of sutures: 3 Laceration 2: Site: upper extremity Side (If applicable): left Size (cm): 2 Description: linear Depth: simple, single layer Pre-repair: irrigated extensively Skin layer closed with: other ([place]) Number of sutures: 3 Laceration 3: Site: upper extremity Side (If applicable): left Size (cm): 1 Description: linear Depth: simple, single layer Pre-repair: irrigated extensively Skin layer closed with: other (Staple x1) Critical Care Time Critical Care Time Critical Care Time: No Discharge Plan Discharge Clinical Impression: Chalazion left upper eyelid Laceration of forearm, left Qualifiers: Encounter type: initial encounter Qualified Code(s): S51.812A - Laceration without foreign body of left forearm, initial encounter Patient Disposition: Home, Self-Care Instructions: Laceration (DC), Chalazion (ED) Additional Instructions: Total of 7 rocky were used to close your wounds today You will need your stitches out in 7 days. See you doctor for this or come back to the ER and we will remove them. Do not get wet for 24 hours, after that you can briefly wash with soap and water then pat dry. Keep wound clean and covered. Do not submerge in water, no swimming. If you develop signs of infection including increased pain, swelling, redness or drainage of pus come back to the ER for further evaluation. You have a chalazion on your left upper eyelid. This is caused by a blockage of a tiny oil gland. Treatment is applying warm, wet compresses for 5-10 minutes, 3-6 times per day. You can also gently massage the area. Do not attempt to squeeze or pop this, it can cause more damage. If it does not go away after several weeks, may require incision and drainage. Prescriptions: No Action emtricitabine-tenofovir (TDF) [Truvada] 200-300 mg tablet 1 tab PO DAILY@0800 30 Days Qty: 30 2RF spironolactone [Aldactone] 100 mg tablet 100 mg PO BID@0800,2100 30 Days Qty: 60 2RF omeprazole 20 mg capsule,delayed release(DR/EC) 20 mg PO DAILY@0800 30 Days Qty: 30 0RF benztropine 0.5 mg Tablet 0.5 mg PO DAILY PRN (Reason: shakiness) chlorpromazine 50 mg tablet 50 mg PO DAILY PRN (Reason: agitation) clonazepam 1 mg tablet 2 mg PO DAILY PRN (Reason: Anxiety) 30 Days Qty: 30 0RF hydroxyzine pamoate 50 mg capsule 50 mg PO QID MDD 200mg PRN (Reason: Anxiety) 30 Days Qty: 120 1RF docusate sodium 100 mg capsule 100 mg PO DAILY MRX1 PRN (Reason: Constipation) chlorpromazine 100 mg tablet 100 mg PO BEDTIME@2100 melatonin 3 mg tablet 6 mg PO BEDTIME@2100 prazosin 5 mg capsule 10 mg PO BEDTIME@2100 trazodone 100 mg tablet 200 mg PO BEDTIME@2100 bupropion HCl 300 mg tablet extended release 24 hr 300 mg PO QAM@0800 Rx Instructions: take with 150mg tab bupropion HCl 150 mg tablet extended release 24 hr 150 mg PO QAM@0800 Rx Instructions: take with 300mg tab dextroamphetamine-amphetamine 30 mg capsule,extended release 24hr 30 mg PO QAM estradiol [Estrace] 2 mg tablet 2 mg PO TID@0800,1500,2100 30 Days Qty: 90 3RF buprenorphine-naloxone [Suboxone] 8-2 mg film 2 film sublingual DAILY@0800 Qty: 60 1RF Rx Instructions: suboxone 8mg films- 2 films every am Referrals: Jaren Shelton [Primary Care Provider] - Print Language: Yi
[2024-02-10 20:21] VITALS: BP 104/65; PULSE 85; RESP 17; TEMP 36.6; O2SAT 97
[2024-02-10 21:12] VITALS: BP 0/0; PULSE 0; RESP 0; TEMP -17.7; TEMP 0; O2SAT 0
== END 2024-02-10 21:13 | disposition home or self-care (01) ==
PROVIDERS: Emergency Provider Emergency Medicine Emergency Medical Services
DX: S51.812A Laceration without foreign body of left forearm, initial encounter (principal); X78.8XXA Intentional self-harm by other sharp object, initial encounter; H00.14 Chalazion left upper eyelid; F41.9 Anxiety disorder, unspecified; F60.3 Borderline personality disorder; F43.10 Post-traumatic stress disorder, unspecified; R45.851 Suicidal ideations; F43.21 Adjustment disorder with depressed mood; F32.4 Major depressive disorder, single episode, in partial remission; F64.0 Transsexualism; F11.20 Opioid dependence, uncomplicated; Z79.899 Other long term (current) drug therapy; F17.210 Nicotine dependence, cigarettes, uncomplicated; Y93.9 Activity, unspecified; Y92.199 Unspecified place in other specified residential institution as the place of occurrence of the external cause; Y99.9 Unspecified external cause status
CPT/HCPCS: 12002; 36415; 80307; 81003; 85025; 99283; 99284; S9485

== ENCOUNTER 2024-05-09 11:27 | Outpatient (AMB) | payer OTHER, SELFPAY ==
--- NOTE | 2024-05-09 11:37 | MHC.AM.SUB ---
Intake Visit Reasons: MAT office Allergies No Known Allergies Allergy (Verified 02/10/24 18:45) HPI HPI MAT office: Details: Patient presents for follow up reporting substance use at her skilled nursing feels triggered by this--requesting to increase dose Currently taking 16mg in AM PFSH Medical History Opioid use disorder, severe, on maintenance therapy Surgical History H/O breast augmentation Social History Household Members: None Household Members Other:: lives in a skilled nursing Housing: Other Housing Other:: Pt was living at a [facility] housing Do you presently have visiting nurse or other home services: No Unable to assess alcohol history related to: Refusing to respond Alcohol intake: never Patient Tobacco Use Status: Current someday Tobacco user Tobacco use type: Cigarette Cigarette Packs Per Day: 0.25 Cigarettes Per Day: 5 Years Smoked: 5 e-Cigarette/Vaping Use: Never Used Substance Use Type: Marijuana service: No Current occupational status: disabled Sexual orientation: Don't Know Cognitive needs: No Hearing needs: No Vision needs: No Review of Systems Const Reports as per HPI Physical Exam Const General: cooperative and well groomed Nutritional Appearance: average body habitus Orientation/consciousness: patient oriented x3 Limitations: no limitations Neuro General: patient oriented x3 Psych Appearance: well kempt Speech and movement: Normal speech and movement present Attitude: cooperative Thought process: Normal thought process present Thought content: Normal thought content present Insight: Good insight present (Psych) Judgement: Good judgement present (Psych) Assessment & Plan Assessment & Plan (1) Opioid use disorder, severe, in sustained remission: Code(s): F11.21 - Opioid dependence, in remission Category: Medical Plan: dose increased by 4mg --total 20mg daily follow up 4 weeks Medications: New buprenorphine-naloxone 4-1 mg (Suboxone) take in the morning with 16mg dose 1 film buccal Q24H 30 ea 0RF
== END 2024-05-09 11:50 | disposition home or self-care (01) ==
PROVIDERS: Visit Provider Nurse Practitioner Psychiatric/Mental Health
DX: F11.21 Opioid dependence, in remission (principal)
CPT/HCPCS: 99214

== ENCOUNTER → 2024-05-09 11:27 | Outpatient (BNVA) | payer OTHER, SELFPAY | PROVIDERS: Visit Provider Nurse Practitioner Psychiatric/Mental Health | DX: F11.21 Opioid dependence, in remission (principal); Z51.81 Encounter for therapeutic drug level monitoring | CPT/HCPCS: 99212 ==

== ENCOUNTER 2024-05-22 13:38 | Outpatient (AMB) | payer OTHER, SELFPAY ==
--- NOTE | 2024-05-22 13:41 | MHC.PC.OV ---
Vital Signs 05/22/24 13:43 Height 6 ft 1 in Weight 201 lb BMI 26.5 BP 120/70 Blood Pressure Location Lt brachial Position Sitting Pulse 103 H Pulse Source Pulse Oximeter Pulse Oximetry (%) 96 Oxygen Delivery Method Room Air Intake Visit Reasons: PE/MAURIZIO Intake Note: Patient is here today for a physical and MA[place]IZIO from [place]. Automatic Pad Making Machine Operator Required: No Panel Builder: Not Required per policy Accompanied by: Self / Same As Patient Allergies No Known Allergies Allergy (Verified 05/22/24 13:54) Medication List - Last Reconciled 05/22/24 by Priya Mi PA-C benztropine 0.5 mg PO DAILY PRN buprenorphine-naloxone 4-1 mg (Suboxone) 1 film buccal Q24H buprenorphine-naloxone 8-2 mg (Suboxone) 2 film sublingual DAILY@0800 bupropion HCl XL 300 mg PO QAM@0800 bupropion HCl XL 150 mg PO QAM@0800 chlorpromazine 50 mg PO DAILY PRN chlorpromazine 100 mg PO BEDTIME@2100 clonazepam 2 mg (2 x 1 mg) PO DAILY PRN 30 days dextroamphetamine-amphetamine 30 mg ER 30 mg PO QAM docusate sodium 100 mg PO DAILY MRX1 PRN emtricitabine-tenofovir (TDF) 200-300 mg (Truvada) 1 tab PO DAILY@0800 30 days estradiol (Estrace) 2 mg PO TID@0800,1500,2100 30 days hydroxyzine pamoate 50 mg PO QID PRN 30 days MDD 200mg melatonin 6 mg PO BEDTIME@2100 omeprazole 20 mg PO DAILY@0800 30 days prazosin 10 mg PO BEDTIME@2100 spironolactone (Aldactone) 100 mg PO BID@0800,2100 30 days trazodone 200 mg PO BEDTIME@2100 Tobacco use date assessed: 05/22/24 Dental Screening Dental Screen Date: 12/20/23 HPI PE/MAURIZIO HPI Details 33-year-old female with past medical history of depression, GERD, PTSD, borderline personality disorder, and history of opioid use disorder last seen by nurse practitioner coming to our office for the 1st time. Review of the notes, patient was assigned male at , now female, currently on estradiol therapy and has been on medication for over 15 years. Patient states she follows with [facility] for Psychiatry as well as counseling and has medications prescribed through them. She does have a history of migraines and was previously using Fioricet with good relief. She has seen neurology in the past for these migraines as a child. Her triggers for migraines identified as light sensitivity. [facility] Medical History Opioid use disorder, severe, on maintenance therapy Surgical History H/O breast augmentation Social History Household Members: None Household Members Other:: lives in a assisted Housing: Other Housing Other:: Pt was living at a [facility] housing Do you presently have visiting nurse or other home services: No Unable to assess alcohol history related to: Refusing to respond Alcohol intake: never Patient Tobacco Use Status: Current someday Tobacco user Tobacco use type: Cigarette Cigarette Packs Per Day: 0.25 Cigarettes Per Day: 5 Years Smoked: 5 e-Cigarette/Vaping Use: Never Used Second Hand Smoke Exposure: Yes Substance Use Type: Marijuana service: No Current occupational status: disabled Sexual orientation: Don't Know Cognitive needs: No Hearing needs: No Vision needs: No Questionnaire PHQ-9 Over the last 2 weeks, how often have you been bothered by any of the following problems? 1. Little interest or pleasure in doing things: nearly every day 2. Feeling down, depressed, or hopeless: nearly every day 3. Trouble falling or staying asleep, or sleeping too much: more than half the days 4. Feeling tired or having little energy: nearly every day 5. Poor appetite or overeating: more than half the days 6. Feeling bad about yourself - or that you are a failure or have let yourself or your family down: not at all 7. Trouble concentrating on things, such as reading the newspaper or watching television: nearly every day 8. Moving or speaking so slowly that other people could have noticed. Or the opposite - being so fidgety or restless that you have been moving around a lot more than usual: not at all 9. Thoughts that you would be better off or of hurting yourself in some way: several days Total score: 17 Depression Screening Interpretation: Positive Depression Screening Follow-up: Existing condition and In treatment Depression Screening Done: Yes 30212 - PHQ-9 Billing: Yes Source: Developed by Drs. Obdulio Bolivar, Christelle Ramirez, Kevan Acosta and colleagues, with an educational nimesh from [employer]. Thrive Questionnaire Date Thrive assessed: 05/22/24 I am a: Patient What is your living situation today?: I choose not to answer this question Within the past 12 months, did the food you bought not last and you didn't have the money to get more?: Often true Within the past 12 months, did you worry whether your food would run out before you got money to buy more?: Sometimes True Do you have trouble paying for medicines?: I choose not to answer this question Do you have trouble getting transportation to medical appointments?: Yes Do you have trouble paying your heating and electricity bill?: I choose not to answer this question Do you have trouble taking care of your child, family member or friend?: I choose not to answer this question Do you have trouble with day-to-day activities such as bathing, preparing meals, shopping, managing finances, etc.?: Yes Are you currently unemployed and looking for a job?: I choose not to answer this question Are you interested in more education?: Yes Please select the resources that you would like help with: Daily support and Education Currently or been in a relationship where the following occur: I choose not to answer THRIVE Score: 3 AUDIT C Alcohol Use Questionnaire (AUDIT-C) 1. How often do you have a drink containing alcohol?: Never Total Score: 0 HANNAH-7 AMB Questionnaire HANNAH-7 Date HANNAH - 7 assessed: 05/22/24 Feeling nervous, anxious, or on edge: 3 = Nearly every day Not being able to stop or control worryin = Nearly every day Worrying too much about different things: 3 = Nearly every day Trouble relaxin = Nearly every day Being so restless that it is hard to sit still: 3 = Nearly every day Becoming easily annoyed or irritable: 2 = More than half the days Feeling afraid as if something awful might happen: 1 = Several days Total HANNAH-7 score (0-4 normal; 5-9 mild; 10-14 moderate; 15-21 severe): 18 Source: Developed by Drs. Obdulio Bolivar, Christelle Ramirez, Kevan Acosta and colleagues, with an educational nimesh from [employer] HANNAH-7 Assessment Billing HANNAH-7 Assessment Tool: HANNAH-7 Assessment 84166 Review of Systems Const Denies body aches, Denies fatigue, Denies fever(s), Denies frequent falls, Reports headache(s) (hx of migraines) and Denies weakness Eyes Reports no additional complaints and Denies change in vision ENT Details: Ear blocked feeling in the right side Denies dysphagia, Denies dizziness, Denies facial pain, Reports headache(s) (hx of migraines), Denies nasal congestion and Denies odynophagia Card Denies chest pain, Denies syncope, Denies irregular heart rhythm, Denies leg edema, Denies lightheadedness and Denies dyspnea Resp Denies cough and Denies dyspnea GI Denies constipation, Denies dysphagia, Denies dyspepsia, Denies diarrhea, Denies nausea, Denies odynophagia and Denies vomiting Denies urinary frequency, Denies dysuria, Denies urinary hesitancy and Denies urinary urgency Musc Denies back pain and Denies myalgias Skin/Breast Reports system reviewed and no additional complaints, except as documented Neuro Denies dizziness, Denies syncope, Denies frequent falls, Reports headache(s) (hx of migraines) and Denies weakness Psych Reports no additional complaints Endo Denies fatigue Physical exam (Primary Care) Vital Signs: Last Vital Signs Pulse 103 H 05/22/24 13:43 BP 120/70 05/22/24 13:43 Pulse Ox 96 05/22/24 13:43 Oxygen Delivery Method Room Air 05/22/24 13:43 BMI result Body Mass Index 26.5 Tobacco/Smoking Status: Tobacco use Status Tobacco use date assessed 05/22/24 05/22/24 13:49 Patient Tobacco Use Status Current someday Tobacco 05/22/24 13:49 Tobacco use type Cigarette 05/22/24 13:49 e-Cigarette/Vaping Use Never Used 05/22/24 13:49 Tobacco cessation counseling provided: Yes Items discussed: Nicotine replacement Relapse Prevention: discussed the importance of a supportive environment Number of minutes spent counselin CPT code: 29824 - 4-10 Minutes PHQ-9: PHQ-9 Score PHQ-9: Total score 17 05/22/24 15:07 Depression Screening Interpretation: Positive Depression Screening Follow-up: Existing condition and In treatment Thrive Assessment: Date of Thrive Assessment Date Thrive assessed 05/22/24 05/22/24 13:49 Currently or been in a relationship where the following occur: I choose not to answer Who was present: patient, assisted staff Forms completed: Health Care Proxy and MOLST Time spent: 1-15 minutes, not on file Actual minutes spent: 5 Did not discuss due to Cultural/Spiritual beliefs: No Const General: cooperative, healthy appearing, comfortable and no acute distress Orientation/consciousness: patient oriented x3 HENMT Head: Yes normocephalic Ears: hearing grossly normal bilaterally, external ears normal, TM's normal bilaterally and Abnormal EAC present cerumen impaction on the right General nose exam: Normal external nose present Face and sinus: Yes normal facial exam and Yes sinuses nontender Mouth: Normal oral and palatal mucosa present and tongue normal Throat: Yes posterior oropharynx normal Eyes General: appearance normal, both eyes and all related structures Conjunctivae: conjunctivae normal Pupils: Equal, round and reactive pupils present EOM: EOMs intact bilaterally and No Nystagmus present Neck Neck: Yes normal visual inspection, Yes full ROM and Yes no lymphadenopathy Chest Chest palpation & inspection: normal inspection of the chest Resp Effort & Inspection: normal respiratory effort Auscultation: clear to auscultation bilaterally, no crackles, no rales, no rhonchi, no wheezes and breath sounds present Cardio Rate: regular rate Rhythm: regular rhythm Peripheral pulses: radial pulses present and dorsalis pedis present GI Inspection: Yes normal to inspection and No Abdominal wall edema Palpation (GI): Soft to palpation, not firm and nontender Auscultation: normal bowel sounds Rectal Exam - Female: deferred General: Yes no CVA tenderness Back/Spine/Pelvis Back: no CVA tenderness Skin General skin exam: no rashes or lesions noted Neuro General: patient oriented x3 Cranial nerves: Yes Equal, round and reactive pupils present, Yes Midline tongue present, Yes Ability to bilaterally elevate shoulders present and No Nystagmus present Gait exam (Neuro): Normal gait present Extrem General: Yes normal to inspection, Yes full ROM, No no pedal edema and No edema Psych Speech and movement: Normal speech and movement present Affect: normal affect Insight: Good insight present (Psych) Judgement: Good judgement present (Psych) Office Procedures Cerumen Removal From which ear canal was the cerumen removed: right Removal: otoscope w/curette Notes: patient tolerated procedure well, no complications and ear canal clear [id number] Wax Removal by Spoon/Curette Assessment and Plan Assessment & Plan (1) History of hormone replacement therapy: Code(s): Z92.29 - Personal history of other drug therapy Plan: Continue on estradiol and spironolactone. (2) Anxiety: Code(s): F41.9 - Anxiety disorder, unspecified Plan: Continue to follow with [facility] and continue on current med regimen. (3) Opioid use disorder, severe, in sustained remission: Code(s): F11.21 - Opioid dependence, in remission Plan: Continue on Suboxone. (4) Borderline personality disorder: Code(s): F60.3 - Borderline personality disorder Plan: Continue to follow with [facility] for management and continue on current med regimen. (5) PTSD (post-traumatic stress disorder): Code(s): F43.10 - Post-traumatic stress disorder, unspecified Plan: Continue on current med regimen and continue to follow with [facility] regularly. (6) Chronic GERD: Code(s): K21.9 - Gastro-esophageal reflux disease without esophagitis Plan: Continue on omeprazole. Avoid trigger foods such as citrus, tomato products, soda, caffeine, spicy foods and other foods that may be irritating to your stomach. Avoid laying flat 3-4 hours after eating and elevate the head of the bed 30 degrees to prevent acid from moving into the esophagus. (7) Annual visit for general adult medical examination without abnormal findings: Code(s): Z00.00 - Encounter for general adult medical examination without abnormal findings Plan: Patient is up-to-date on all recommended routine screenings and vaccinations for her age. Ordered for updated blood work to evaluate for lipids and thyroid testing. We will follow up in 3 months and then in 1 year or sooner if new problems arise. (8) Major depression in partial remission: Code(s): F32.4 - Major depressive disorder, single episode, in partial remission Plan: Continue to follow with [facility] please reach out if you do have feelings of self-harm. Continue on current med regimen. (9) Migraine: Code(s): G43.909 - Migraine, unspecified, not intractable, without status migrainosus Plan: Patient has a history of migraines that appear to be related to photophobia. Patient does work with conservative measures Tylenol and ibuprofen as well as returning to a dark room. Migraines are often associated with nausea and vomiting. Patient is requesting Fioricet as this has worked well in the past for her however sumatriptan is a preferred agent for migraines. We will discuss further management at next appointment. (10) Nicotine dependence: Code(s): F17.200 - Nicotine dependence, unspecified, uncomplicated Plan: Patient is interested in smoking cessation and nicotine replacement therapy was prescribed today. Plan This note was constructed using voice recognition software. While every effort has been made to ensure accuracy and paste up copy camera operator, still areas may have been included sometimes these areas may affect the content or meeting of the given symptoms. Total time spent caring for the patient today was 30 minutes. This includes time spent before the visit reviewing the chart, time spent during the visit, and time spent after the visit and documentation. Orders: Orders Lipid Panel Today Z00.00 - Encounter for general adult medical examination without abnormal findings Free T4 (Free Thyroxine) Today Z00.00 - Encounter for general adult medical examination without abnormal findings Vitamin B12 and Folate Today Z00.00 - Encounter for general adult medical examination without abnormal findings TSH reflex Free T4 Today Z00.00 - Encounter for general adult medical examination without abnormal findings Vitamin D 25-OH (D2 and D3) Today Z00.00 - Encounter for general adult medical examination without abnormal findings Medications: New nicotine (polacrilex) 4 mg buccal Q2H 20 ea 2RF Changed From docusate sodium 100 mg PO DAILY MRX1 PRN Constipation To docusate sodium 100 mg PO DAILY PRN 30 caps 0RF Constipation Refilled estradiol (Estrace) 2 mg PO TID@0800,1500,2100 30 days 90 tabs 3RF hydroxyzine pamoate 50 mg PO QID 30 days PRN 120 caps 1RF Anxiety MDD 200mg omeprazole 20 mg PO DAILY@0800 30 days 30 caps 0RF spironolactone (Aldactone) 100 mg PO BID@0800,2100 30 days 60 tabs 2RF emtricitabine-tenofovir (TDF) 200-300 mg (Truvada) 1 tab PO DAILY@0800 30 days 30 tabs 2RF Coding Level of Care Code Est Pt Prev Care 18-39y(34796) Diagnoses History of hormone replacement therapy Z92.29 Anxiety F41.9 Opioid use disorder, severe, in sustained remission F11.21 Borderline personality disorder F60.3 PTSD (post-traumatic stress disorder) F43.10 Chronic GERD K21.9 Annual visit for general adult medical examination without abnormal findings Z00.00 Major depression in partial remission F32.4 Migraine G43.909 Nicotine dependence F17.200 CPT Codes Office Procedure - CPT: 55430-Odi Wax Removal by Spoon/Curette ([id number]) Additional Codes HANNAH-7 Assessment Billing - HANNAH-7 Assessment Tool: HANNAH-7 Assessment 30692 ([id number]) Vital Signs *Quality* - Time spent: 1-15 minutes, not on file ([id number]) Vital Signs *Quality* - CPT code: 41685 - 4-10 Minutes ([id number])
[2024-05-22 13:43] VITALS: BP 120/70; PULSE 103; O2SAT 96; BMI 26.5
== END 2024-05-22 14:30 | disposition home or self-care (01) ==
DX: Z00.00 Encounter for general adult medical examination without abnormal findings (principal); F41.9 Anxiety disorder, unspecified; F11.21 Opioid dependence, in remission; F60.3 Borderline personality disorder; F43.21 Adjustment disorder with depressed mood; F43.10 Post-traumatic stress disorder, unspecified; K21.9 Gastro-esophageal reflux disease without esophagitis; F32.4 Major depressive disorder, single episode, in partial remission; G43.909 Migraine, unspecified, not intractable, without status migrainosus; F17.210 Nicotine dependence, cigarettes, uncomplicated; H61.21 Impacted cerumen, right ear; Z92.29 Personal history of other drug therapy
CPT/HCPCS: 1124F; 69210; 99395; 99406

== ENCOUNTER 2024-06-20 09:52 | Outpatient (AMB) | payer OTHER, SELFPAY ==
--- NOTE | 2024-06-20 10:14 | MHC.AM.SUB ---
Intake Visit Reasons: MAT office Allergies No Known Allergies Allergy (Verified 05/22/24 13:54) HPI HPI MAT office: Details: Patient presents for follow up Currently prescribed Suboxone 20mg daily seeing therapist 2x/week tolerating increase in dose GF moved further away, some feelings around this [facility] Medical History Opioid use disorder, severe, on maintenance therapy Surgical History H/O breast augmentation Social History Household Members: None Household Members Other:: lives in a [facility] Housing: Other Housing Other:: Pt was living at a [facility] housing Do you presently have visiting nurse or other home services: No Unable to assess alcohol history related to: Refusing to respond Alcohol intake: never Patient Tobacco Use Status: Current someday Tobacco user Tobacco use type: Cigarette Cigarette Packs Per Day: 0.25 Cigarettes Per Day: 5 Years Smoked: 5 e-Cigarette/Vaping Use: Never Used Second Hand Smoke Exposure: Yes Substance Use Type: Marijuana service: No Current occupational status: disabled Sexual orientation: Don't Know Cognitive needs: No Hearing needs: No Vision needs: No Review of Systems Const Reports as per HPI and Reports no additional complaints Physical Exam Const General: cooperative and well groomed Nutritional Appearance: average body habitus Orientation/consciousness: patient oriented x3 Limitations: no limitations Neuro General: patient oriented x3 Psych Appearance: well kempt Speech and movement: Normal speech and movement present Attitude: cooperative Thought process: Normal thought process present Thought content: Normal thought content present Insight: Good insight present (Psych) Judgement: Good judgement present (Psych) Assessment & Plan Assessment & Plan (1) Opioid use disorder, severe, in sustained remission: Code(s): F11.21 - Opioid dependence, in remission Category: Medical Plan: continue suboxone at current dose follow up 8 weeks telehealth
== END 2024-06-20 10:41 | disposition home or self-care (01) ==
PROVIDERS: Visit Provider Nurse Practitioner Psychiatric/Mental Health
DX: F11.21 Opioid dependence, in remission (principal)
CPT/HCPCS: 99213

== ENCOUNTER → 2024-06-20 09:52 | Outpatient (BNVA) | payer OTHER, SELFPAY | PROVIDERS: Visit Provider Nurse Practitioner Psychiatric/Mental Health | DX: F11.21 Opioid dependence, in remission (principal); Z51.81 Encounter for therapeutic drug level monitoring | CPT/HCPCS: 99212 ==

== ENCOUNTER 2024-07-23 21:11 | Emergency (ER) | payer OTHER, SELFPAY ==
[2024-07-23 21:18] VITALS: BMI 23.7
--- NOTE | 2024-07-23 21:21 | ED_ITS ---
HPI - General Adult General Chief complaint: Psychiatric Symptoms Stated complaint: Self harm Time Seen by Provider: 07/23/24 21:16 Source: patient Mode of arrival: ambulatory Limitations: no limitations History of Present Illness ED Provider: Dr. 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 When Osvaldo was told that visitation time is over for patients, she grabbed something sharp and started cutting her left forearm. It is unclear what she used, patient refuses to tell us what she used. Patient has at least 2 deep lacerations to the left forearm which will need stitches. When patient asked if she is suicidal or homicidal, patient declined to answer. Related Data Home Medications ?Medication ?Instructions ?Recorded ?Confirmed benztropine 0.5 mg tablet 0.5 mg PO DAILY PRN shakiness 09/06/23 05/22/24 chlorpromazine 50 mg tablet 50 mg PO DAILY PRN agitation 09/06/23 05/22/24 bupropion HCl 150 mg 24 hr tablet, 150 mg PO QAM@0800 10/15/23 05/22/24 extended release bupropion HCl 300 mg 24 hr tablet, 300 mg PO QAM@0800 10/15/23 05/22/24 extended release chlorpromazine 100 mg tablet 100 mg PO BEDTIME@2100 10/15/23 07/24/24 melatonin 3 mg tablet 6 mg PO BEDTIME@2100 sleep 10/15/23 07/24/24 prazosin 5 mg capsule 10 mg PO BEDTIME@2100 10/15/23 07/24/24 trazodone 100 mg tablet 200 mg PO BEDTIME@2100 insomnia 10/15/23 07/24/24 dextroamphetamine-amphetamine ER 30 mg PO QAM 12/20/23 05/22/24 30 mg 24hr capsule,extend release Previous Rx's ?Medication ?Instructions ?Recorded clonazepam 1 mg tablet 2 mg (2 x 1 mg) PO DAILY PRN 07/27/23 Anxiety 30 days #30 tabs docusate sodium 100 mg capsule 100 mg PO DAILY PRN Constipation 05/22/24 #30 caps emtricitabine 200 mg-tenofovir 1 tab PO DAILY@0800 30 days #30 05/22/24 disoproxil fumarate 300 mg tablet tabs (Truvada) estradiol 2 mg tablet (Estrace) 2 mg PO TID@0800,1500,2100 30 days 05/22/24 #90 tabs hydroxyzine pamoate 50 mg capsule 50 mg PO QID PRN Anxiety 30 days 05/22/24 #120 caps nicotine (polacrilex) 4 mg gum 4 mg buccal Q2H #20 ea 05/22/24 omeprazole 20 mg capsule,delayed 20 mg PO DAILY@0800 30 days #30 05/22/24 release caps spironolactone 100 mg tablet 100 mg PO BID@0800,2100 30 days 05/22/24 (Aldactone) #60 tabs buprenorphine 8 mg-naloxone 2 mg 2 film sublingual DAILY@0800 #60 ea 06/18/24 sublingual film (Suboxone) buprenorphine 4 mg-naloxone 1 mg 1 film buccal Q24H #30 ea 07/04/24 sublingual film (Suboxone) Allergies Allergy/AdvReac Type Severity Reaction Status Date / Time No Known Allergies Allergy Verified 07/23/24 21:22 Review of Systems 2 Review of Systems: Constitutional : No Weight loss, No Fever, No Chills, No Night Sweats, No Fatigue, No Malaise ENT/Mouth : No Hearing loss, No Ear Pain, No Nasal Congestion, No Sinus Pain, No Hoarseness, No sore throat, No Rhinorrhea, No Swallowing Difficulty Eyes: No Eye Pain, No Swelling, No Redness, No Foreign Body, No Discharge, No Vision Changes Cardiovascular : No Chest Pain, No SOB, No Dyspnea on Exertion, No Orthopnea, No Edema, No Palpitations Respiratory : No Cough, No Sputum, No Wheezing, No Smoke Exposure, No Dyspnea Gastrointestinal : No Nausea, No Vomiting, No Diarrhea, No Constipation, No abdominal Pain, No Hematochezia, No Melena Genitourinary : no irregular bleeding, No Dysuria, No Urinary Frequency, No Hematuria, No Urinary Incontinence, No Urgency, No Flank Pain, No Urinary Flow Changes, No Hesitancy Musculoskeletal : No joint pain, No Myalgias, No Joint Swelling Skin : Lacerations to the right forearm Neuro : No Weakness, No Numbness, No Paresthesias, No Loss of Consciousness, No Dizziness, No Headache Psych : Declined to disclose if she has SI or HI Heme/Lymph: No Bruising, No Bleeding,No Lymphadenopathy Endocrine : No Polyuria, No Polydipsia, No Temperature Intolerance [facility] Past Medical History Medical History Opioid use disorder, severe, on maintenance therapy Surgical History H/O breast augmentation Social History Social History Household Members: None Household Members Other:: lives in a residential Housing: Other Housing Other:: Pt was living at a [facility] housing Do you presently have visiting nurse or other home services: No Unable to assess alcohol history related to: Refusing to respond Alcohol intake: never Patient Tobacco Use Status: Current someday Tobacco user Tobacco use type: Cigarette Cigarette Packs Per Day: 0.25 Cigarettes Per Day: 5 Years Smoked: 5 Smoked in Last 30 Days: Yes e-Cigarette/Vaping Use: Never Used Second Hand Smoke Exposure: Yes Use of substances other than those prescribed or required for medical reasons: Refusing to respond Substance Use Type: Marijuana Advance Directives: No Advance Directives Information Provided: No Do you have a plan to hurt others: No Plan service: No Current occupational status: disabled Sexual orientation: Don't Know Cognitive needs: No Hearing needs: No Vision needs: No Physical Exam ED Vital Signs: Vital Signs - 24 hr 07/23/24 22:00 07/24/24 01:42 Temperature 97.8 F Pulse Rate 105 H 120 H Respiratory Rate 16 18 Blood Pressure 122/65 130/78 Pulse Oximetry 96 94 Oxygen Delivery Method Room Air Room Air BMI result Body Mass Index 23.7 Const Other: Appearance: Alert. Oriented X3. No acute distress. Eyes: Pupils equal, round and reactive to light. ENT: Pharynx normal. Neck: Normal inspection. Neck supple. No lymph nodes noted. No crepitus CVS: Normal heart rate and rhythm. Pulses normal. Normal S1 and S2 Respiratory: No respiratory distress. Breath sounds normal. No Wheezing. No rales Abdomen: Soft and nontender. No rigidity. No distention. Skin: Patient has 2 lacerations to the left forearm, most of the laceration length is superficial. However, there places where there deep and need stitches Extremities: No lower extremity edema. No Lacerations. No Rash Neuro: Oriented X 3. No motor deficit. No sensory deficit. Moving all extremities. No slurred speech. CN 2 through 12 grossly intact Psych: calm, cooperative, normal affect Course Course Course Narrative: patient had abrupt verbal altercation with RN, threw objects at RN, security called patient tried to run out of ER, aggressive and fighting staff bedside I requested ativan and zyprexa as I was helping to hold the patient, RN noted she could not get zyprexa. I went to the computer and ordered haldol/benadryl/ativan in the meantime someone brought over zyprexa and the RN administered that after the initial haldol and benadryl - at this time we will watch the patient closely monitor qtc and keep on continuous pulse ox. Medications Administered Discontinued Medications Generic Name Dose Route Start Last Admin Trade Name Freq PRN Reason Stop Dose Admin Diphenhydramine HCl 50 mg 07/23/24 22:09 07/23/24 23:09 Diphenhydramine Hcl 25 Mg Capsule PO 07/23/24 22:10 50 mg ONCE ONE Administration Diphenhydramine HCl 50 mg 07/24/24 01:38 07/24/24 01:42 Diphenhydramine Hcl 50 Mg/Ml Vial IM 07/24/24 01:39 50 mg ONCE ONE Administration Haloperidol 5 mg 07/23/24 22:09 07/23/24 23:09 Haloperidol 5 Mg Tablet PO 07/23/24 22:10 5 mg ONCE ONE Administration Haloperidol Lactate 5 mg 07/24/24 01:38 07/24/24 01:41 Haloperidol Lactate 5 Mg/Ml Vial IM 07/24/24 01:39 5 mg STAT STA Administration Lorazepam 2 mg 07/23/24 22:09 07/23/24 23:09 Lorazepam 1 Mg Tablet PO 07/23/24 22:10 2 mg ONCE ONE Administration Lorazepam 2 mg 07/24/24 01:26 07/24/24 01:30 Lorazepam 2 Mg/Ml Vial IM 07/24/24 01:27 2 mg STAT STA Administration Medical Decision Making Medical Decision Making [facility] Narrative: Patient is calm, cooperative, willing to get michelle. Patient's arm was cleaned and 13 michelle were applied between both lacerations. Patient declined lidocaine According to the behavioral health providers who saw the patient's friend, they believe that this patient and the other patient who is here want to be hospitalized together -patient is on a Section 12 Care team consult pending Patient on a one-to-one My interpretation of labs: Patient's hematology and chemistry at baseline patient urine toxicology positive for buprenorphine and amphetamines sign out given to my colleague Dr. Angela Differential Diagnosis Differential Diagnoses: The differential diagnosis associated with the presentation includes (Anxiety, depression, SI, self-harm) Admission/Observation Consideration of admission/observation: Escalation of care including admission/observation considered (Patient is under Section 12 waiting to be seen by the care team and determine disposition) Lab Data 07/23/24 22:26 07/23/24 22:26 Labs: Lab Results 07/23/24 07/23/24 Range/Units 22:26 Unknown WBC 6.8 (4.8-10.8) X10*3/uL RBC 4.09 L (4.20-5.50) X10*6/uL Hgb 13.1 (12.0-16.0) g/dl Hct 35.9 L (37.0-47.0) % MCV 87.8 (80.0-98.0) fL MCH 32.0 (27.0-33.0) pg MCHC 36.5 H (31.0-35.0) g/dl RDW 11.6 (11.0-16.0) % Plt Count 233 (160-400) X10*3/uL MPV 10.0 (9.4-12.3) fL Immature Gran % (Auto) 0.3 (0.0-0.4) % Neut % (Auto) 59.3 (45-73) % Lymph % (Auto) 26.2 (20-40) % [place] % (Auto) 9.5 (2-11) % Eos % (Auto) 3.7 (0-4) % Baso % (Auto) 1.0 (0-2) % Lymph # (Auto) 1.8 (1.2-4.9) X10*3/uL [place] # (Auto) 0.7 (0.1-1.2) X10*3/uL Eos # (Auto) 0.3 (0.0-0.4) X10*3/uL Baso # (Auto) 0.1 (0.0-0.2) X10*3/uL Abs Immat Gran (auto) 0.02 (0.00-0.03) X10*3/uL Absolute Neuts (auto) 4.0 (2.0-8.3) x10*3/uL Absolute Nucleated RBC 0.000 (0.0-0.012) X10*3/uL Nucleated RBC % (auto) 0.0 (0.0-0.2) /100WBC Sodium 135 (135-145) mmol/L Potassium 4.1 (3.3-5.1) mmol/L Chloride 104 (96-108) mmol/L Carbon Dioxide 24 (22-29) mmol/L Anion Gap 11 L (12-20) BUN 18 H (9-16) mg/dL Creatinine 0.97 (0.5-1.4) mg/dL Estim Creat Clear Calc 95.4 Estimated GFR > 60 Random Glucose 108 (60-115) mg/dL Calcium 8.2 L (8.4-10.2) mg/dL Total Bilirubin 0.2 (0.0-1.0) mg/dL Direct Bilirubin < 0.2 (0.0-0.5) mg/dL AST 31 (5-31) U/L ALT 19 (0-31) U/L Alkaline Phosphatase 48 (39-117) U/L Total Protein 6.9 (6.5-8.0) g/dL Albumin 3.8 (3.5-5.0) g/dL Urine Test NEGATIVE (NEGATIVE) Salicylates < 5.0 L (15-30) mg/dL Urine Opiates Screen Not Detected (Not Detect) Ur Buprenorphine Scrn Positive H (Not Detect) ng/mL Ur Oxycodone Screen Not Detected (Not Detect) ng/mL Urine Methadone Screen Not Detected (Not Detect) ng/mL Urine Fentanyl Screen Not Detected (Not Detect) Acetaminophen < 3 (<30) mcg/mL Ur Barbiturates Screen Not Detected (Not Detect) Ur Phencyclidine Scrn Not Detected (Not Detect) Ur Amphetamines Screen POSITIVE H (Not Detect) U Benzodiazepines Scrn Not Detected (Not Detect) Urine Cocaine Screen Not Detected (Not Detect) U Marijuana (THC) Screen Not Detected (Not Detect) Ethyl Alcohol < 10 mg/dL Critical Care Time Critical Care Time Critical Care Time: Yes Total Critical Care Time: 60 Attestation: I have personally provided critical care time. Time includes review of lab data, radiology results, discussion with consultants, and monitoring for potential decompensation. Intervention performed as documented. Discharge Plan Discharge Clinical Impression: Laceration of skin of forearm, Suicidal ideation Patient Disposition: Still a Patient Prescriptions: No Action buprenorphine-naloxone [Suboxone] 8-2 mg film 2 film sublingual DAILY@0800 Qty: 60 1RF Rx Instructions: suboxone 8mg films- 2 films every am buprenorphine-naloxone [Suboxone] 4-1 mg film 1 film buccal Q24H Qty: 30 1RF Rx Instructions: take in the morning with 16mg dose benztropine 0.5 mg Tablet 0.5 mg PO DAILY PRN (Reason: shakiness) chlorpromazine 50 mg tablet 50 mg PO DAILY PRN (Reason: agitation) clonazepam 1 mg tablet 2 mg PO DAILY PRN (Reason: Anxiety) 30 Days Qty: 30 0RF chlorpromazine 100 mg tablet 100 mg PO BEDTIME@2100 melatonin 3 mg tablet 6 mg PO BEDTIME@2100 prazosin 5 mg capsule 10 mg PO BEDTIME@2100 trazodone 100 mg tablet 200 mg PO BEDTIME@2100 bupropion HCl 300 mg tablet extended release 24 hr 300 mg PO QAM@0800 Rx Instructions: take with 150mg tab bupropion HCl 150 mg tablet extended release 24 hr 150 mg PO QAM@0800 Rx Instructions: take with 300mg tab dextroamphetamine-amphetamine 30 mg capsule,extended release 24hr 30 mg PO QAM hydroxyzine pamoate 50 mg capsule 50 mg PO QID MDD 200mg PRN (Reason: Anxiety) 30 Days Qty: 120 1RF docusate sodium 100 mg capsule 100 mg PO DAILY PRN (Reason: Constipation) Qty: 30 0RF estradiol [Estrace] 2 mg tablet 2 mg PO TID@0800,1500,2100 30 Days Qty: 90 3RF omeprazole 20 mg capsule,delayed release(DR/EC) 20 mg PO DAILY@0800 30 Days Qty: 30 0RF spironolactone [Aldactone] 100 mg tablet 100 mg PO BID@0800,2100 30 Days Qty: 60 2RF emtricitabine-tenofovir (TDF) [Truvada] 200-300 mg tablet 1 tab PO DAILY@0800 30 Days Qty: 30 2RF nicotine (polacrilex) 4 mg gum 4 mg buccal Q2H Qty: 20 2RF Interventions: [place]-Suicide Risk Severity Scale Last Done: 07/23/24 23:24 Print Language: Romanian
--- NOTE | 2024-07-23 21:33 | PC.NURSE ---
Pt was visiting another pt, then she harmed herself. Left arm with 3 lacerations , bleeding. Security at bedside. Pt's belongings searched by security and locked up, by security. Dr Stewart at bedside, and repaired lacs, with michelle. Pt wound cleaned and wrapped. Sitter at bedside.
[2024-07-23 22:00] VITALS: BP 122/65; PULSE 105; RESP 16; TEMP 36.6; O2SAT 96
[2024-07-23 22:32] LABS: MANUAL DIFF FLAG NO
[2024-07-23 22:37] LABS: Basophils Absolute Auto 0.1 X10*3/uL (0.0-0.2); Eosinophils Absolute Auto 0.3 X10*3/uL (0.0-0.4); Eosinophils Percent Auto 3.7 % (0-4); Hematocrit 35.9 % (37.0-47.0); Hemoglobin 13.1 g/dl (12.0-16.0); Imm Gran Abs Auto 0.02 X10*3/uL (0.00-0.03); Imm Gran Pct Auto 0.3 % (0.0-0.4); Lymphocytes Absolute Auto 1.8 X10*3/uL (1.2-4.9); Lymphocytes Percent Auto 26.2 % (20-40); Mean Corpuscular HGB Conc 36.5 g/dl (31.0-35.0); Mean Corpuscular Volume 87.8 fL (80.0-98.0); Monocytes Absolute Auto 0.7 X10*3/uL (0.1-1.2); Monocytes Percent Auto 9.5 % (2-11); Neutrophils Percent Auto 59.3 % (45-73); Platelet Count 233 X10*3/uL (160-400); Red Blood Count 4.09 X10*6/uL (4.20-5.50); Red Cell Distribution Width 11.6 % (11.0-16.0); White Blood Count 6.8 X10*3/uL (4.8-10.8)
[2024-07-23 22:47] LABS: Amphetamine Screen Urine POSITIVE (Not Detect); Barbiturates, Urine Not Detected (Not Detect); Benzodiazepines Screen Urine Not Detected (Not Detect); Buprenorphine Scr Positive (Not Detect); Cannabinoid Screen Urine Not Detected (Not Detect); Cocaine Screen Urine Not Detected (Not Detect); Fentanyl, urine Not Detected (Not Detect); Methadone Screen, Urine Not Detected (Not Detect); Opiate Screen Urine Not Detected (Not Detect); Oxycodone Screen Urine Not Detected (Not Detect); Phencyclidine Screen Urine Not Detected (Not Detect)
[2024-07-23 22:54] LABS: Acetaminophen LAB < 3 mcg/mL (<30); Alanine Aminotransferase 19 U/L (0-31); Albumin Level 3.8 g/dL (3.5-5.0); Alkaline Phosphatase 48 U/L (39-117); Anion Gap 11 (12-20); Aspartate Amino Transferase 31 U/L (5-31); Bilirubin Direct < 0.2 mg/dL (0.0-0.5); Bilirubin Total 0.2 mg/dL (0.0-1.0); Blood Urea Nitrogen 18 mg/dL (9-16); Calcium 8.2 mg/dL (8.4-10.2); Carbon Dioxide 24 mmol/L (22-29); Chloride 104 mmol/L (96-108); Creatinine Clr Calc Pharmacy 95.4; Estimated Glomerular Filt Rate > 60; Ethanol < 10 mg/dL; Glucose Random 108 mg/dL (60-115); Potassium 4.1 mmol/L (3.3-5.1); Salicylate < 5.0 mg/dL (15-30); Sodium 135 mmol/L (135-145); Total Protein 6.9 g/dL (6.5-8.0)
[2024-07-23] MEDS: LORazepam 1 MG TABLET 2 MG PO (23:09)
[2024-07-23] MEDS: HaloperidoL 5 MG TABLET PO (23:09)
[2024-07-23] MEDS: diphenhydrAMINE HCL 25 MG CAPSULE 50 MG PO (23:09)
[2024-07-23 23:29] LABS: UPreg QC Valid YES; Urine Pregnancy NEGATIVE (NEGATIVE)
--- NOTE | 2024-07-24 01:15 | PC.NURSE ---
pt asking for her PM meds, states she brought the with her from the alf, they were packaged for her to take tonight. tried to explain to pt, I would need the MD, to ok for her to take her medicine. Pt very agitated, then pt started cussing and threw a cup of water at this nurse. Security was called. pt walking up in the hallway. Pt was cussing at the security, staff and MD. Pt tried to swing at security. Pt was in the hallway, and security restrained her
[2024-07-24] MEDS: LORazepam 2 MG/ML VIAL IM (01:30)
[2024-07-24] MEDS: Haloperidol Lactate 5 MG/ML VIAL IM (01:41)
[2024-07-24 01:42] VITALS: BP 130/78; PULSE 120; RESP 18; O2SAT 94
[2024-07-24] MEDS: diphenhydrAMINE HCL 50 MG/ML VIAL IM (01:42)
--- NOTE | 2024-07-24 01:59 | PC.NURSE ---
Addendum entered by Tala Nix 07/24/24 07:16: 0315: Pt calm but attempting to take off restraints. Original Note: This tag writer assumed care of this Pt at this time.
--- NOTE | 2024-07-24 02:00 | PC.NURSE ---
report given to Francia carreon
--- NOTE | 2024-07-24 02:14 | PC.NURSE ---
at 0130, pt was placed in restraints by security, with Dr Angela at bedside.
[2024-07-24 02:15] VITALS: BP 101/63; PULSE 101; RESP 16; O2SAT 94
--- NOTE | 2024-07-24 03:09 | ECG_ITS ---
Test Reason : qtc check Blood Pressure : / mmHG Vent. Rate : 073 BPM Atrial Rate : 073 BPM P-R Int : 174 ms QRS Dur : 086 ms QT Int : 404 ms P-R-T Axes : 053 070 057 degrees QTc Int : 445 ms Normal sinus rhythm Normal ECG When compared with ECG of 20-JUL-2023 19:54, No significant change was found Referred By: Kirsten Stewart Electronically Signed By:Joe Dumont
[2024-07-24 03:15] VITALS: BP 102/62; PULSE 83; RESP 16; O2SAT 93
[2024-07-24] MEDS: OLANZapine 10 MG VIAL IM (05:08)
--- NOTE | 2024-07-24 05:13 | PC.NURSE ---
During restraint, zyprexa was handed to Me by KARENA Kiran for administration.
[2024-07-24 08:00] VITALS: BP 100/54; PULSE 75; RESP 15; TEMP 36.5; O2SAT 97
--- NOTE | 2024-07-24 10:14 | PC.NURSE ---
Assumed care of patient at 1015, patient is calm and cooperative, offering no complaints. This RN changed bandage on pts left arm. Pt noted to have multiple vertical self inflicted lacerations, no drainage noted. Pt denies SI/HI/AH/VH. Requesting to go back to long-term
[2024-07-24] MEDS: clonazePAM 1 MG TABLET 2 MG PO (12:38)
[2024-07-24] MEDS: Buprenorphine/Naloxone 4/1 mg FILM 1 FILM BUCCAL (13:09)
[2024-07-24] MEDS: Buprenorphine/Naloxone 8/2 mg FILM 2 FILM SUBLINGUAL (13:09)
[2024-07-24] MEDS: Spironolactone 25 MG TABLET 100 MG PO (13:09)
[2024-07-24] MEDS: Dextroamphetamine/Amphetamine XR 10 MG CAP.ER.24H 30 MG PO (13:10)
[2024-07-24] MEDS: buPROPion HCl XL 150 MG TAB.ER.24H PO (13:10)
--- NOTE | 2024-07-24 13:35 | P.CNPS_ITS ---
History of Present Illness Date of Service: 07/24/24 Chief Complaint: Self harm Reason for Consult: Discharge planning. Requesting physician: Kirsten Stewart Sources of Information: patient interviewed, chart reviewed and crisis/core team assessment reviewed Additional Sources of Information: Discussed with CARE Team, Ana Luisa Sibley, referring clinician. Ana Luisa has talke with pt's retirement director, Syed, of [facility]. HPI Narrative: 34 yo female, history of PTSD, Borderline Personality Disorder, Opiate Use Disorder, initially here visiting a peer on 07/23/24. Team report, last evening, they informed pt that her ER visiting time was completed and she needed to leave per hospital policy. This information was dysregulating for pt and she found an object and inflicted two deep lacerations, left forearm which was followed by an altercation with one of the nurses, throwing objects, attempting to run out of the hospital, being aggressive, fighting, needing security assistance and requiring Haldol, Olanzapine, Lorazepam, Diphenhydramine. Once settled, she agreed to treatment and required 13 michelle. Today, she is asking to discharge. CARE Team has met with her, talked with her residential program, [facility] and their director and ask for consult to discharge. Met with pt who is alert, attentive, well engaged. She is familiar with tw by history and reviewed her thoughts about what occurred. Pt reports she has been doing OK and working hard. [facility], last visit 06/20. She reports she attends therapy twice per week with [facility] and reports it is helpful. She reports her girlfriend has moved recently which is stressful but managable. She believes she became dysregulated due to feeling anxious and pressured to leave, as precipitous changes can be precipitating of dysregulation for her. She reports also, her evening meds were late due to the visit, and I think that contributed to his as well. Pt denies SI, HI, AH, VH. She reports cutting episode was not a suicide attempt, just an intervention to become more grounded and modulate her affect. She denies feeling dyregulated currently and plans to return to [facility] and visit her girlfriend this evening. She reports medications are stable and asks that no changes be made at this time. Past Psychiatric History: Describes having PTSD symptoms and borderline personality disorder. Denied psychosis. Denied HI. On Suboxone 12 with [facility]. History of ECT but no benefit. Multiple medication trials. residential program called [facility] x 2 yrs services through [facility] and has DM services Lives at [facility] admit December 2022, Jul 2023 Medical Evaluation Reviewed: Yes Review of Systems Review of Systems Denies Yes all other systems are reviewed and are negative [facility]LY [facility] Medical History Opioid use disorder, severe, on maintenance therapy Surgical History H/O breast augmentation Social History: [facility] for ~ 1year Jul 2023. [facility] and [facility] services. Single. No children. No legal issues. Reports never being able to hold down a job. GED and some college. Trauma history Substance History: Suboxone- [facility] basis Trauma History: yes Diagnostics Vital Signs (24Hr): Vital Signs - 24 hr 07/23/24 22:00 07/24/24 01:42 07/24/24 02:15 Temperature 97.8 F Pulse Rate 105 H 120 H 101 H Respiratory Rate 16 18 16 Blood Pressure 122/65 130/78 101/63 Pulse Oximetry 96 94 94 Oxygen Delivery Method Room Air Room Air Room Air 07/24/24 03:15 07/24/24 08:00 Temperature 97.7 F Pulse Rate 83 75 Respiratory Rate 16 15 Blood Pressure 102/62 100/54 L Pulse Oximetry 93 97 Oxygen Delivery Method Room Air Room Air BMI result Body Mass Index 23.7 Labs 07/23/24 22:26 07/23/24 22:26 Labs: Laboratory Results - last 48 hr 07/23/24 07/23/24 22:26 Unknown WBC 6.8 RBC 4.09 L Hgb 13.1 Hct 35.9 L MCV 87.8 MCH 32.0 MCHC 36.5 H RDW 11.6 Plt Count 233 MPV 10.0 Immature Gran % (Auto) 0.3 Neut % (Auto) 59.3 Lymph % (Auto) 26.2 [place] % (Auto) 9.5 Eos % (Auto) 3.7 Baso % (Auto) 1.0 Lymph # (Auto) 1.8 [place] # (Auto) 0.7 Eos # (Auto) 0.3 Baso # (Auto) 0.1 Abs Immat Gran (auto) 0.02 Absolute Neuts (auto) 4.0 Absolute Nucleated RBC 0.000 Nucleated RBC % (auto) 0.0 Sodium 135 Potassium 4.1 Chloride 104 Carbon Dioxide 24 Anion Gap 11 L BUN 18 H Creatinine 0.97 Estim Creat Clear Calc 95.4 Estimated GFR > 60 Random Glucose 108 Calcium 8.2 L Total Bilirubin 0.2 Direct Bilirubin < 0.2 AST 31 ALT 19 Alkaline Phosphatase 48 Total Protein 6.9 Albumin 3.8 Urine Test NEGATIVE Salicylates < 5.0 L Urine Opiates Screen Not Detected Ur Buprenorphine Scrn Positive H Ur Oxycodone Screen Not Detected Urine Methadone Screen Not Detected Urine Fentanyl Screen Not Detected Acetaminophen < 3 Ur Barbiturates Screen Not Detected Ur Phencyclidine Scrn Not Detected Ur Amphetamines Screen POSITIVE H U Benzodiazepines Scrn Not Detected Urine Cocaine Screen Not Detected U Marijuana (THC) Screen Not Detected Ethyl Alcohol < 10 Mental Status Exam Mental Status Exam Patient Appearance: Appropriate Patient Orientation: Person, Place, Time and Situation Level of Consciousness: Alert Patient Behavior: Appropriate, Talkative, Cooperative and Good Eye Contact Mood Description: Calm and Appropriate Affect Description: Calm and Appropriate Patient Cognition Impaired: No Ability to Follow Directions: Good Speech Pattern: Spontaneous Speech Memory Description: Intact Hallucinations: None Delusions: Not Present Thought Process: Intact and Goal Oriented Thought Content: positive for Intact and positive for Goal Oriented Judgement: Good Medications Medications Current Medications Amphetamine/Dextroamphetamine (Dextroamphetamine/Amphetamine Xr 10 Mg Cap.Er.24h) 30 mg PO DAILY [facility] Last Admin: 07/24/24 13:10 Dose: 30 mg Buprenorphine/Naloxone (Buprenorphine/Naloxone 4/1 Mg Film) 1 film BUCCAL Q24H [facility] Last Admin: 07/24/24 13:09 Dose: 1 film Buprenorphine/Naloxone (Buprenorphine/Naloxone 8/2 Mg Film) 2 film SUBLINGUAL DAILY@0800 [facility] Last Admin: 07/24/24 13:09 Dose: 2 film Bupropion HCl (Bupropion Hcl Xl 150 Mg Tab.Er.24h) 150 mg PO DAILY [facility] Last Admin: 07/24/24 13:10 Dose: 150 mg Bupropion HCl (Bupropion Hcl Xl 300 Mg Tab.Er.24h) 300 mg PO DAILY [facility] Chlorpromazine HCl (Chlorpromazine Hcl 100 Mg Tablet) 100 mg PO BEDTIME@2100 [facility] Clonazepam (Clonazepam 1 Mg Tablet) 1 mg PO BID PRN PRN Reason: Anxiety Docusate Sodium (Docusate Sodium 100 Mg Capsule) 100 mg PO DAILY PRN PRN Reason: Constipation Emtricitabine/Tenofovir (Emtricitabin/Tenofovir Df 200/300 Tablet) 1 tab PO DAILY@0800 [facility] Estradiol (Estradiol 0.5 Mg Tablet) 2 mg PO TID@0800,1500,2100 [facility] Melatonin (Melatonin 3 Mg Tablet) 6 mg PO BEDTIME@2100 [facility] Nicotine Polacrilex (Nicotine Polacrilex 2 Mg Gum) 4 mg BUCCAL Q2H PRN PRN Reason: NICOTINE CRAVINGS Omeprazole (Omeprazole 20 Mg Capsule.Dr) 20 mg PO DAILY@0630 [facility] Prazosin HCl (Prazosin Hcl 5 Mg Capsule) 10 mg PO BEDTIME@2100 [facility]; Protocol Spironolactone (Spironolactone 25 Mg Tablet) 100 mg PO BID@0800,2100 [facility]; Protocol Last Admin: 07/24/24 13:09 Dose: 100 mg Trazodone HCl (Trazodone Hcl 100 Mg Tablet) 200 mg PO BEDTIME@2100 [facility] Allergies Allergies Allergy/AdvReac Type Severity Reaction Status Date / Time No Known Allergies Allergy Verified 07/23/24 21:22 Assessment & Plan Assessment & Plan (1) PTSD (post-traumatic stress disorder): Status: Acute Code(s): F43.10 - Post-traumatic stress disorder, unspecified (2) Borderline personality disorder: Status: Acute Code(s): F60.3 - Borderline personality disorder (3) Opioid use disorder, severe, in sustained remission: Status: Acute Code(s): F11.21 - Opioid dependence, in remission Plan PTSD, Borderline Personality Disorder, Opioid Dependence-currently in remission, on Suboxone. Plan: Pt will discharge to her retirement, [facility]. CARE Team will work with pt on a safety plan. Pt is aware she may call or return at any time. She denies any SI/HI/AH/VH, self destructive feelings currently. Total time managing care of this patient today ____ minutes. Patient educated on: therapeutic strategies Informed Consent: understands
[2024-07-24 15:07] VITALS: BP 102/68; PULSE 78; RESP 16; TEMP 36.7; O2SAT 99
== END 2024-07-24 14:18 | disposition home or self-care (01) ==
PROVIDERS: Emergency Medicine; Emergency Provider Emergency Medicine
DX: S51.812A Laceration without foreign body of left forearm, initial encounter (principal); R45.851 Suicidal ideations; F11.21 Opioid dependence, in remission; F60.3 Borderline personality disorder; F43.10 Post-traumatic stress disorder, unspecified; F17.210 Nicotine dependence, cigarettes, uncomplicated; X78.1XXA Intentional self-harm by knife, initial encounter; Y93.89 Activity, other specified; Y92.89 Other specified places as the place of occurrence of the external cause; Y99.8 Other external cause status; Z51.81 Encounter for therapeutic drug level monitoring; Z79.899 Other long term (current) drug therapy
CPT/HCPCS: 12032; 36415; 80048; 80076; 80143; 80179; 80307; 81025; 85025; 93005; 96372; 99285; J1200; J1630; J2060; J2359; S9485

== ENCOUNTER → 2024-07-23 22:02 | Outpatient (BNV) | payer OTHER, SELFPAY | PROVIDERS: Emergency Provider Emergency Medicine; Visit Provider Clinical Nurse Specialist Psychiatric/Mental Health, Adult | DX: F43.10 Post-traumatic stress disorder, unspecified (principal); F60.3 Borderline personality disorder; F11.21 Opioid dependence, in remission | CPT/HCPCS: 99283 ==

== ENCOUNTER → 2024-07-24 03:09 | Outpatient (BNV) | payer OTHER, SELFPAY | PROVIDERS: Emergency Provider Emergency Medicine; Visit Provider Internal Medicine Cardiovascular Disease | DX: F43.10 Post-traumatic stress disorder, unspecified (principal); F60.3 Borderline personality disorder; F11.21 Opioid dependence, in remission | CPT/HCPCS: 93010 ==

== ENCOUNTER 2024-08-15 09:27 | Outpatient (AMB) | payer OTHER, SELFPAY ==
--- NOTE | 2024-08-15 09:29 | A.OFFVISCC_ITS ---
Intake Visit Reasons: MAT Tele Allergies No Known Allergies Allergy (Verified 07/23/24 21:22) HPI HPI MAT Tele: Details: Patient presents for follow up via telehealth Currently prescribed Suboxone 20mg daily Denies any issues related to recovery Still seeing therapist 2x/week No concerns at this time Review of Systems Const Reports as per HPI and Reports no additional complaints Telehealth Telehealth Telehealth Platform: Telephone Location of provider rendering services: practice address Location of patient: address on file Patient Identification confirmed using: Name, : Yes Telehealth method: voice only Patient verbally consented to treatment: Yes Patient verbally consented to billing insurance company: Yes Minutes spent on Phone/Video with Pt.: 15 Assessment & Plan Assessment & Plan (1) Opioid use disorder, severe, in sustained remission: Code(s): F11.21 - Opioid dependence, in remission Category: Medical Plan: * continue suboxone at current dose * follow up 8 weeks Medications: Refilled buprenorphine-naloxone 4-1 mg (Suboxone) take in the morning with 16mg dose 1 film buccal Q24H 30 ea 1RF buprenorphine-naloxone 8-2 mg (Suboxone) suboxone 8mg films- 2 films every am 2 film sublingual DAILY@0800 60 ea 1RF PFSH Medical History Opioid use disorder, severe, on maintenance therapy Surgical History H/O breast augmentation Social History Household Members: None Household Members Other:: lives in a fdc Housing: Other Housing Other:: Pt was living at a [facility] housing Do you presently have visiting nurse or other home services: No Unable to assess alcohol history related to: Refusing to respond Alcohol intake: never Patient Tobacco Use Status: Current someday Tobacco user Tobacco use type: Cigarette Cigarette Packs Per Day: 0.25 Cigarettes Per Day: 5 Years Smoked: 5 e-Cigarette/Vaping Use: Never Used Second Hand Smoke Exposure: Yes Substance Use Type: Marijuana service: No Current occupational status: disabled Sexual orientation: Don't Know Cognitive needs: No Hearing needs: No Vision needs: No Social History: [employer] for ~ 1year Jul 2023. [facility] and [facility] services. Single. No children. No legal issues. Reports never being able to hold down a job. GED and some college. Trauma history Substance History: Suboxone- attend comprehensive care clinic on a regular basis Trauma History: yes
== END 2024-08-15 09:48 | disposition home or self-care (01) ==
PROVIDERS: Visit Provider Nurse Practitioner Psychiatric/Mental Health
DX: F11.21 Opioid dependence, in remission (principal)
CPT/HCPCS: 99213

== ENCOUNTER → 2024-08-15 09:27 | Outpatient (BNVA) | payer OTHER, SELFPAY | PROVIDERS: Visit Provider Nurse Practitioner Psychiatric/Mental Health ==

== ENCOUNTER 2024-08-21 10:22 | Outpatient (AMB) | payer OTHER, SELFPAY ==
--- NOTE | 2024-08-21 10:24 | A.OFFPC_ITS ---
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 Accompanied by: Self / Same As Patient Allergies No Known Allergies Allergy (Verified 08/21/24 10:25) Medication List - Last Reconciled 08/21/24 by Priya Mi PA-C buprenorphine-naloxone 4-1 mg (Suboxone) 1 film buccal Q24H buprenorphine-naloxone 8-2 mg (Suboxone) 2 film sublingual DAILY@0800 bupropion HCl XL 300 mg PO QAM@0800 bupropion HCl XL 150 mg PO QAM@0800 chlorpromazine 100 mg PO BEDTIME@2100 clonazepam 2 mg (2 x 1 mg) PO DAILY PRN 30 days dextroamphetamine-amphetamine 30 mg ER 30 mg PO QAM docusate sodium 100 mg PO DAILY PRN emtricitabine-tenofovir (TDF) 200-300 mg (Truvada) 1 tab PO DAILY@0800 30 days estradiol (Estrace) 2 mg PO TID@0800,1500,2100 30 days melatonin 6 mg PO BEDTIME@2100 PRN nicotine (polacrilex) 4 mg buccal Q2H omeprazole 20 mg PO DAILY@0800 30 days prazosin 10 mg PO BEDTIME@2100 spironolactone (Aldactone) 100 mg PO BID@0800,2100 30 days trazodone 200 mg PO BEDTIME@2100 Tobacco use date assessed: 08/21/24 Dental Screening Dental Screen Date: 08/21/24 Did you have a dental visit in the last 12 months?: No Did you have a dental problem in the last 6 months where you did not have access to dental care?: No Was dental information given to patient?: Patient has dentist HPI f/u cholesterol HPI Details 34-year-old assigned male at now i dentifies as female with past medical history of depression, GERD, PTSD, borderline personality disorder and history of opioid use disorder last seen May 2024 coming in for follow up. In review of the notes patient was seen in [facility] 07/23/2024 after self- inflicted injury of forearm which was repaired with 13 michelle.?Patient was seen by crisis and cleared for discharge to her prison.? Today's appointment was to review the cholesterol labs which patient has not completed yet. She does have a few concerns today. First she did have an injury in July where she hit her right foot and is now having a bump on the lateral aspect of the right mid foot. She states it is occasionally painful to the touch but does not inhibit her walking. She also mentioned wanting to have a referral to General surgery for a tracheal shave, cranial ridge procedure and possible orchiectomy. COUNTS INCLUDE 234 BEDS AT THE [facility] Medical History Opioid use disorder, severe, on maintenance therapy Surgical History H/O breast augmentation Social History Household Members: None Household Members Other:: lives in a prison Housing: Other Housing Other:: Pt was living at a [facility] housing Do you presently have visiting nurse or other home services: No Unable to assess alcohol history related to: Refusing to respond Alcohol intake: never Patient Tobacco Use Status: Current someday Tobacco user Tobacco use type: Cigarette Cigarette Packs Per Day: 0.25 Cigarettes Per Day: 5 Years Smoked: 5 Packs Per Year: 1 Packs per year/per ci.25 e-Cigarette/Vaping Use: Never Used Second Hand Smoke Exposure: Yes Substance Use Type: Marijuana service: No Current occupational status: disabled Sexual orientation: Don't Know Cognitive needs: No Hearing needs: No Vision needs: No Questionnaire PHQ-9 Over the last 2 weeks, how often have you been bothered by any of the following problems? 1. Little interest or pleasure in doing things: nearly every day 2. Feeling down, depressed, or hopeless: nearly every day 3. Trouble falling or staying asleep, or sleeping too much: more than half the days 4. Feeling tired or having little energy: nearly every day 5. Poor appetite or overeating: more than half the days 6. Feeling bad about yourself - or that you are a failure or have let yourself or your family down: not at all 7. Trouble concentrating on things, such as reading the newspaper or watching television: nearly every day 8. Moving or speaking so slowly that other people could have noticed. Or the opposite - being so fidgety or restless that you have been moving around a lot more than usual: not at all 9. Thoughts that you would be better off or of hurting yourself in some way: several days Total score: 17 Depression Screening Interpretation: Positive Depression Screening Follow-up: Existing condition and In treatment Depression Screening Done: Yes 21178 - PHQ-9 Billing: Yes Source: Developed by Drs. Obdulio Bolivar, Christelle Ramirez, Kevan Acosta and colleagues, with an educational nimesh from [employer]. Thrive Questionnaire Date Thrive assessed: 08/21/24 I am a: Patient What is your living situation today?: I choose not to answer this question Within the past 12 months, did the food you bought not last and you didn't have the money to get more?: Often true Within the past 12 months, did you worry whether your food would run out before you got money to buy more?: Sometimes True Do you have trouble paying for medicines?: I choose not to answer this question Do you have trouble getting transportation to medical appointments?: Yes Do you have trouble paying your heating and electricity bill?: I choose not to answer this question Do you have trouble taking care of your child, family member or friend?: I choose not to answer this question Do you have trouble with day-to-day activities such as bathing, preparing meals, shopping, managing finances, etc.?: Yes Are you currently unemployed and looking for a job?: I choose not to answer this question Are you interested in more education?: Yes Please select the resources that you would like help with: None Currently or been in a relationship where the following occur: I choose not to answer THRIVE Score: 3 AUDIT C Alcohol Use Questionnaire (AUDIT-C) 1. How often do you have a drink containing alcohol?: Never Total Score: 0 HANNAH-7 AMB Questionnaire HANNAH-7 Date HANNAH - 7 assessed: 08/21/24 Feeling nervous, anxious, or on edge: 3 = Nearly every day Not being able to stop or control worryin = Nearly every day Worrying too much about different things: 3 = Nearly every day Trouble relaxin = Nearly every day Being so restless that it is hard to sit still: 3 = Nearly every day Becoming easily annoyed or irritable: 2 = More than half the days Feeling afraid as if something awful might happen: 1 = Several days Total HANNAH-7 score (0-4 normal; 5-9 mild; 10-14 moderate; 15-21 severe): 18 Source: Developed by Drs. Obdulio Bolivar, Christelle Ramirez, Kevan Acosta and colleagues, with an educational nimesh from [employer]. HANNAH-7 Assessment Billing HANNAH-7 Assessment Tool: HANNAH-7 Assessment 59571 Review of Systems Const Denies body aches, Denies chills, Denies fever(s), Denies headache(s) and Denies poor appetite Eyes Reports no additional complaints ENT Denies dizziness and Denies headache(s) Card Denies chest pain and Denies dyspnea Resp Denies cough and Denies dyspnea GI Denies abdominal pain, Denies nausea and Denies vomiting Reports no additional complaints Musc Reports no additional complaints and Denies abnormal gait Skin/Breast Reports system reviewed and no additional complaints, except as documented Neuro Denies abnormal gait, Denies dizziness and Denies headache(s) Psych Reports no additional complaints Physical exam (Primary Care) Vital Signs: Last Vital Signs Pulse 143 H 08/21/24 10:25 BP 100/86 08/21/24 10:25 Pulse Ox 98 08/21/24 10:25 Oxygen Delivery Method Room Air 08/21/24 10:25 BMI result Body Mass Index 25.9 Tobacco/Smoking Status: Tobacco use Status Tobacco use date assessed 08/21/24 08/21/24 10:28 Patient Tobacco Use Status Current someday Tobacco 08/21/24 10:28 Tobacco use type Cigarette 08/21/24 10:28 e-Cigarette/Vaping Use Never Used 08/21/24 10:28 PHQ-9: PHQ-9 Score PHQ-9: Total score 17 08/21/24 10:29 Depression Screening Interpretation: Positive Depression Screening Follow-up: Ex isting condition and In treatment Thrive Assessment: Date of Thrive Assessment Date Thrive assessed 08/21/24 08/21/24 10:28 Currently or been in a relationship where the following occur: I choose not to answer Const General: cooperative, healthy appearing, comfortable and no acute distress Orientation/consciousness: patient oriented x3 HENIL Head: Yes normocephalic Ears: hearing grossly normal bilaterally General nose exam: Normal external nose present Eyes General: appearance normal, both eyes and all related structures Conjunctivae: conjunctivae normal Neck Neck: Yes full ROM and Yes no lymphadenopathy Resp Effort & Inspection: normal respiratory effort Auscultation: clear to auscultation bilaterally, no crackles, no rales, no rhonchi and no wheezes Cardio Rate: regular rate Rhythm: regular rhythm Skin General skin exam: no rashes or lesions noted Neuro General: patient oriented x3 Gait exam (Neuro): Normal gait present Extrem General: Yes normal to inspection, Yes full ROM and No edema Psych Affect: normal affect Attitude: cooperative Insight: Good insight present (Psych) Judgement: Good judgement present (Psych) Coding Level of Care Code Est Pt Level 3 (93725) Diagnoses Right foot pain M79.671 Gender dysphoria F64.9 Nicotine dependence F17.200 Hypertriglyceridemia E78.1 Additional Codes HANNAH-7 Assessment Billing - HANNAH-7 Assessment Tool: HANNAH-7 Assessment 15343 ([id number]) PHQ-9 - 66618 - PHQ-9 Billing: Yes ([id number]) Assessment & Plan Assessment & Plan (1) Right foot pain: Code(s): M79.671 - Pain in right foot Category: Medical Plan: Patient complaining of pain in the right foot very mild tenderness to palpation over lateral aspect of right midfoot. Declining x-ray at this time advised patient to continue to monitor symptoms and may use Tylenol and ibuprofen as needed for pain. (2) Gender dysphoria: Code(s): F64.9 - Gender identity disorder, unspecified Category: Medical Plan: Patient looking for referral to Plastic surgery for gender affirming procedures. Referral was placed today to [facility] Plastic surgery and did discuss the orchiectomy may need to be discussed through a urologist. Patient is unsure if she would like to undergo the orchiectomy at this time and will follow up with Plastic surgery. (3) Nicotine dependence: Code(s): F17.200 - Nicotine dependence, unspecified, uncomplicated Category: Medical Plan: Smoking cigarettes and the use of tobacco can be harmful. We discussed the imp ortance of stopping and options to aid in smoking cessation. (4) Hypertriglyceridemia: Code(s): E78.1 - Pure hyperglyceridemia Category: Medical Plan: Patient has historically high triglycerides ordered for updated blood work and we will follow up in 3 months. Plan This note was constructed using voice recognition software. While every effort has been made to ensure accuracy and cupola charger, still areas may have been included sometimes these areas may affect the content or meeting of the given symptoms. Total time spent caring for the patient today was 20 minutes. This includes time spent before the visit reviewing the chart, time spent during the visit, and time spent after the visit and documentation. Orders: Referrals Plastic Surgery Referral F64.9 - Gender identity disorder, unspecified Medications: New condoms - male As directed 10 ea 2RF [female (internal) condom] As directed 10 ea 2RF
[2024-08-21 10:25] VITALS: BP 100/86; PULSE 143; O2SAT 98; BMI 25.9
== END 2024-08-21 10:57 | disposition home or self-care (01) ==
DX: M79.671 Pain in right foot (principal); F64.9 Gender identity disorder, unspecified; F17.200 Nicotine dependence, unspecified, uncomplicated; E78.1 Pure hyperglyceridemia

== ENCOUNTER → 2024-08-21 10:22 | Outpatient (BNVA) | payer OTHER, SELFPAY | DX: M79.671 Pain in right foot (principal); F64.9 Gender identity disorder, unspecified; E78.1 Pure hyperglyceridemia; F17.200 Nicotine dependence, unspecified, uncomplicated; Z71.6 Tobacco abuse counseling | CPT/HCPCS: 96127; 99212 ==

== ENCOUNTER 2024-10-10 10:26 | Outpatient (AMB) | payer OTHER, SELFPAY ==
--- NOTE | 2024-10-10 10:49 | MHC.AM.SUB ---
Intake Visit Reasons: MAT Office Allergies No Known Allergies Allergy (Verified 08/21/24 10:25) HPI HPI MAT Office: Details: Patient presents for follow up Currently prescribed Suboxone 20mg daily Has been staying at her GF house more often due to concerns that people are using in the house Goal is to get an apt in [place] No questions or concerns related to recovery Review of Systems Const Reports as per HPI Physical Exam Const General: cooperative and well groomed Nutritional Appearance: average body habitus Orientation/consciousness: patient oriented x3 Limitations: no limitations Neuro General: patient oriented x3 Psych Appearance: well kempt Speech and movement: Normal speech and movement present Attitude: cooperative Thought process: Normal thought process present Thought content: Normal thought content present Insight: Good insight present (Psych) Judgement: Good judgement present (Psych) COUNT INCLUDES [facility] Medical History Opioid use disorder, severe, on maintenance therapy Surgical History H/O breast augmentation Social History Household Members: None Household Members Other:: lives in a chcf Housing: Other Housing Other:: Pt was living at a [facility] housing Do you presently have visiting nurse or other home services: No Unable to assess alcohol history related to: Refusing to respond Alcohol intake: never Patient Tobacco Use Status: Current someday Tobacco user Tobacco use type: Cigarette Cigarette Packs Per Day: 0.25 Cigarettes Per Day: 5 Years Smoked: 5 e-Cigarette/Vaping Use: Never Used Second Hand Smoke Exposure: Yes Substance Use Type: Marijuana service: No Current occupational status: disabled Sexual orientation: Don't Know Cognitive needs: No Hearing needs: No Vision needs: No Social History: [employer] for ~ 1year Jul 2023. [facility]. Single. No children. No legal issues. Reports never being able to hold down a job. GED and some college. Trauma history Substance History: Suboxone- attend comprehensive care clinic on a regular basis Trauma History: yes Assessment & Plan Assessment & Plan (1) Opioid use disorder, severe, in sustained remission: Code(s): F11.21 - Opioid dependence, in remission Category: Medical Plan: continue suboxone at current dose follow up 8 weeks Medications: Refilled buprenorphine-naloxone 8-2 mg (Suboxone) suboxone 8mg films- 2 films every am 2 film sublingual DAILY@0800 60 ea 1RF
== END 2024-10-10 10:59 | disposition home or self-care (01) ==
PROVIDERS: Visit Provider Nurse Practitioner Psychiatric/Mental Health
DX: F11.21 Opioid dependence, in remission (principal)
CPT/HCPCS: 99213

== ENCOUNTER → 2024-10-10 10:26 | Outpatient (BNVA) | payer OTHER, SELFPAY | PROVIDERS: Visit Provider Nurse Practitioner Psychiatric/Mental Health | DX: F11.21 Opioid dependence, in remission (principal) | CPT/HCPCS: 99212 ==

== ENCOUNTER 2024-12-28 00:55 | Emergency (ER) | payer OTHER, SELFPAY ==
[2024-12-28] VITALS (7 sets, daily range): BP systolic 93–128; BP diastolic 52–88; PULSE 56–92; RESP 12–20; TEMP 36.3–37.2; O2SAT 98–100; BMI 22.1
--- NOTE | 2024-12-28 | ECG_ITS ---
Test Reason : CHECK QTC INTERVAL Blood Pressure : */* mmHG Vent. Rate : 65 BPM Atrial Rate : 65 BPM P-R Int : 168 ms QRS Dur : 88 ms QT Int : 424 ms P-R-T Axes : 63 88 70 degrees QTcB Int : 440 ms Normal sinus rhythm Normal ECG When compared with ECG of 24-Jul-2024 03:53, No significant change was found Referred By: Generic ED Physician Electronically Signed By: STACIA MAC MD
--- NOTE | 2024-12-28 01:48 | PC.NURSE ---
patient soon after admission reported to [facility] that client took a handful of miscellaneous pills dont even know what i took . t/w notified main and clin coordinator. ordred ekg and had this brought to [facility] ed, notified charge nurse.
[2024-12-28 01:58] LABS: MANUAL DIFF FLAG NO
[2024-12-28 01:59] LABS: Basophils Percent Auto 0.4 % (0-2); Eosinophils Absolute Auto 0.2 X10*3/uL (0.0-0.4); Eosinophils Percent Auto 2.4 % (0-4); Hematocrit 34.4 % (37.0-47.0); Hemoglobin 12.4 g/dl (12.0-16.0); Imm Gran Abs Auto 0.02 X10*3/uL (0.00-0.03); Imm Gran Pct Auto 0.3 % (0.0-0.4); Lymphocytes Absolute Auto 1.5 X10*3/uL (1.2-4.9); Lymphocytes Percent Auto 20.2 % (20-40); Mean Corpuscular Hemoglobin 32.6 pg (27.0-33.0); Mean Corpuscular Volume 90.5 fL (80.0-98.0); Mean Platelet Volume 9.9 fL (9.4-12.3); Monocytes Absolute Auto 0.6 X10*3/uL (0.1-1.2); Monocytes Percent Auto 7.6 % (2-11); Neutrophils Absolute Auto 5.3 x10*3/uL (2.0-8.3); Neutrophils Percent Auto 69.1 % (45-73); Platelet Count 232 X10*3/uL (160-400); Red Cell Distribution Width 11.9 % (11.0-16.0); White Blood Count 7.6 X10*3/uL (4.8-10.8)
[2024-12-28 02:30] LABS: Alanine Aminotransferase 25 U/L (0-31); Albumin Level 3.5 g/dL (3.5-5.0); Alkaline Phosphatase 51 U/L (39-117); Anion Gap 11 (12-20); Aspartate Amino Transferase 22 U/L (5-31); Bilirubin Total 0.3 mg/dL (0.0-1.0); Blood Urea Nitrogen 12 mg/dL (9-16); Calcium 8.3 mg/dL (8.4-10.2); Carbon Dioxide 25 mmol/L (22-29); Chloride 107 mmol/L (96-108); Creatinine Clr Calc Pharmacy 120.1; Estimated Glomerular Filt Rate > 60; Ethanol < 10 mg/dL; Glucose Random 111 mg/dL (60-115); Potassium 3.5 mmol/L (3.3-5.1); Sodium 139 mmol/L (135-145)
--- NOTE | 2024-12-28 02:35 | ED.PSYCH ---
HPI - Psych General Chief Complaint: Psychiatric Symptoms Stated Complaint: SI/LAC TO LFT FOREARM Time Seen by Provider: 12/28/24 02:19 Source: patient and EMS Mode of arrival: EMS Limitations: no limitations History of Present Illness ED Provider: Dr. Kirsten Stewart HPI Narrative: Patient comes to the emergency room via ambulance from a long term. Patient states that he has had issues with bingeing and purging behavior for the last month or so. Patient states that she lost 30 lb in the last month and also has been using cocaine to help with weight loss. Patient states that he used a blunt object to in flex several scratches/lacerations on the left forearm. According to the patient it was a combination of trying to release stress/pressure and hurting herself. Also, patient states that she took her own tablets of benzodiazepines, and then ask people in the long term for there is an entirely took over 14 tablets of benzodiazepines. Related Data Home Medications ?Medication ?Instructions ?Recorded ?Confirmed bupropion HCl 150 mg 24 hr tablet, 150 mg PO QAM@0800 10/15/23 12/28/24 extended release bupropion HCl 300 mg 24 hr tablet, 300 mg PO QAM@0800 10/15/23 12/28/24 extended release chlorpromazine 100 mg tablet 100 mg PO BEDTIME@209910/15/23 12/28/24 prazosin 5 mg capsule 10 mg PO BEDTIME@209910/15/23 12/28/24 trazodone 100 mg tablet 200 mg PO BEDTIME@2100 insomnia 10/15/23 12/28/24 dextroamphetamine-amphetamine ER 30 mg PO DAILY 12/20/23 12/28/24 30 mg 24hr capsule,extend release (Adderall XR) buprenorphine 4 mg-naloxone 1 mg 1 film buccal DAILY@0800 12/28/24 12/28/24 sublingual film (Suboxone) Previous Rx's ?Medication ?Instructions ?Recorded clonazepam 1 mg tablet 2 mg (2 x 1 mg) PO DAILY PRN 07/27/23 Anxiety 30 days #30 tabs condoms - male #10 ea 08/21/24 female (internal) condom #10 ea 08/21/24 omeprazole 20 mg capsule,delayed 20 mg PO DAILY@0800 30 days #30 09/18/24 release caps emtricitabine 200 mg-tenofovir 1 tab PO DAILY@0800 30 days #30 09/28/24 disoproxil fumarate 300 mg tablet tabs (Truvada) spironolactone 100 mg tablet 100 mg PO BID@0800,2100 30 days 11/21/24 (Aldactone) #60 tabs buprenorphine 8 mg-naloxone 2 mg 2 film sublingual DAILY@0800 #42 ea 12/10/24 sublingual film (Suboxone) estradiol 2 mg tablet 2 mg PO TID #90 tabs 12/11/24 Allergies Allergy/AdvReac Type Severity Reaction Status Date / Time No Known Allergies Allergy Verified 12/28/24 01:24 Review of Systems Review of Systems: Constitutional : No Weight loss, No Fever, No Chills, No Night Sweats, No Fatigue, No Malaise ENT/Mouth : No Hearing loss, No Ear Pain, No Nasal Congestion, No Sinus Pain, No Hoarseness, No sore throat, No Rhinorrhea, No Swallowing Difficulty Eyes: No Eye Pain, No Swelling, No Redness, No Foreign Body, No Discharge, No Vision Changes Cardiovascular : No Chest Pain, No SOB, No Dyspnea on Exertion, No Orthopnea, No Edema, No Palpitations Respiratory : No Cough, No Sputum, No Wheezing, No Smoke Exposure, No Dyspnea Gastrointestinal : No Nausea, No Vomiting, No Diarrhea, No Constipation, No abdominal Pain, No Hematochezia, No Melena Genitourinary : no irregular bleeding, No Dysuria, No Urinary Frequency, No Hematuria, No Urinary Incontinence, No Urgency, No Flank Pain, No Urinary Flow Changes, No Hesitancy Musculoskeletal : No joint pain, No Myalgias, No Joint Swelling Skin : No Skin Lesions, No rash Neuro : No Weakness, No Numbness, No Paresthesias, No Loss of Consciousness, No Dizziness, No Headache Psych : Complaining of anxiety, depression, vague suicidal ideation, no HI Heme/Lymph: No Bruising, No Bleeding,No Lymphadenopathy Endocrine : No Polyuria, No Polydipsia, No Temperature Intolerance PMFSH Past Medical History Medical History Opioid use disorder, severe, on maintenance therapy Surgical History H/O breast augmentation Social History Social History Household Members: None Household Members Other:: lives in a long term Housing: Other Housing Other:: Pt was living at a [facility] housing Do you presently have visiting nurse or other home services: No Unable to assess alcohol history related to: Refusing to respond Alcohol intake: never Patient Tobacco Use Status: Current someday Tobacco user Tobacco use type: Cigarette Cigarette Packs Per Day: 0.25 Cigarettes Per Day: 5 Years Smoked: 5 Smoked in Last 30 Days: No e-Cigarette/Vaping Use: Never Used Second Hand Smoke Exposure: Yes Use of substances other than those prescribed or required for medical reasons: No Substance Use Type: Marijuana Advance Directives: No Do you have a plan to hurt others: No Plan Patient : No service: No Current occupational status: disabled Sexual orientation: Don't Know Cognitive needs: No Hearing needs: No Vision needs: No Physical Exam Vital Signs: Vital Signs: Last Vital Signs Temp 97.4 F 12/28/24 15:58 Pulse 68 12/28/24 15:58 Resp 14 12/28/24 15:58 BP 101/61 12/28/24 15:58 Pulse Ox 98 12/28/24 15:58 O2 Del Method Room Air 12/28/24 15:58 BMI result Body Mass Index 22.1 Medications Administered Generic Name Dose Route Start Last Admin Trade Name Freq PRN Reason Stop Dose Admin Amphetamine/Dextroamphetamine 30 mg 12/28/24 13:00 12/28/24 16:11 Dextroamphetamine/Amphetamine Xr 10 Mg Cap.Er.24h PO Not Given DAILY AGATHA Clonazepam 2 mg 12/28/24 12:46 12/28/24 16:10 Clonazepam 1 Mg Tablet PO 2 mg DAILY PRN Administration Anxiety Estradiol 2 mg 12/28/24 15:00 12/28/24 16:10 Estradiol 0.5 Mg Tablet PO 2 mg TID AGATHA Administration Medical Decision Making Medical Decision Making [facility] Narrative: My interpretation of labs: No significant abnormality in patient's hematology or chemistry, normal LFTs, urine toxicology positive for buprenorphine and cocaine Patient's lacerations are superficial, patient does not need michelle or stitches Poison control has been called. Recommendations: No further interventions, patient will likely be medically cleared in 4-6 hours once she is awake My interpretation of EKG: Normal sinus rhythm, heart rate 65, no ST segment depression or elevation, no T-wave inversion, QTC 440 Care team consult pending Differential Diagnosis Differential Diagnoses: The differential diagnosis associated with the presentation includes (Anxiety, depression, polysubstance abuse, PTSD) Admission/Observation Consideration of admission/observation: Escalation of care including admission/observation considered (Patient is under physician observation waiting to be seen by the care team) Lab Data MDM Lab Attestation statement: I reviewed the patient's lab results. 12/28/24 01:52 12/28/24 01:52 Labs: Lab Results 12/28/24 Range/Units 01:52 WBC 7.6 (4.8-10.8) X10*3/uL RBC 3.80 L (4.20-5.50) X10*6/uL Hgb 12.4 (12.0-16.0) g/dl Hct 34.4 L (37.0-47.0) % MCV 90.5 (80.0-98.0) fL MCH 32.6 (27.0-33.0) pg MCHC 36.0 H (31.0-35.0) g/dl RDW 11.9 (11.0-16.0) % Plt Count 232 (160-400) X10*3/uL MPV 9.9 (9.4-12.3) fL Immature Gran % (Auto) 0.3 (0.0-0.4) % Neut % (Auto) 69.1 (45-73) % Lymph % (Auto) 20.2 (20-40) % Stephens % (Auto) 7.6 (2-11) % Eos % (Auto) 2.4 (0-4) % Baso % (Auto) 0.4 (0-2) % Lymph # (Auto) 1.5 (1.2-4.9) X10*3/uL Stephens # (Auto) 0.6 (0.1-1.2) X10*3/uL Eos # (Auto) 0.2 (0.0-0.4) X10*3/uL Baso # (Auto) 0.0 (0.0-0.2) X10*3/uL Abs Immat Gran (auto) 0.02 (0.00-0.03) X10*3/uL Absolute Neuts (auto) 5.3 (2.0-8.3) x10*3/uL Absolute Nucleated RBC 0.000 (0.0-0.012) X10*3/uL Nucleated RBC % (auto) 0.0 (0.0-0.2) /100WBC Sodium 139 (135-145) mmol/L Potassium 3.5 (3.3-5.1) mmol/L Chloride 107 (96-108) mmol/L Carbon Dioxide 25 (22-29) mmol/L Anion Gap 11 L (12-20) BUN 12 (9-16) mg/dL Creatinine 0.70 (0.5-1.4) mg/dL Estim Creat Clear Calc 120.1 Estimated GFR > 60 Random Glucose 111 (60-115) mg/dL Calcium 8.3 L (8.4-10.2) mg/dL Total Bilirubin 0.3 (0.0-1.0) mg/dL AST 22 (5-31) U/L ALT 25 (0-31) U/L Alkaline Phosphatase 51 (39-117) U/L Total Protein 6.0 L (6.5-8.0) g/dL Albumin 3.5 (3.5-5.0) g/dL Urine Color Dark Yellow Urine Appearance Clear Urine pH 6.0 (5.0-9.0) Ur Specific [place] 1.025 (1.005-1.025) Urine Protein Trace (Neg-Trace) mg/dL Urine Glucose (UA) Negative (Negative) mg/dL Urine Ketones Trace (Negative) mg/dL Urine Blood Negative (Negative) Urine Nitrite Negative (Negative) Ur Leukocyte Esterase Negative (Negative) Urine Test NEGATIVE (NEGATIVE) Salicylates < 5.0 L (15-30) mg/dL Urine Opiates Screen Not Detected (Not Detect) Ur Buprenorphine Scrn Positive H (Not Detect) ng/mL Ur Oxycodone Screen Not Detected (Not Detect) ng/mL Urine Methadone Screen Not Detected (Not Detect) ng/mL Urine Fentanyl Screen Not Detected (Not Detect) Acetaminophen < 3 (<30) mcg/mL Ur Barbiturates Screen Not Detected (Not Detect) Ur Phencyclidine Scrn Not Detected (Not Detect) Ur Amphetamines Screen Not Detected (Not Detect) U Benzodiazepines Scrn Not Detected (Not Detect) Urine Cocaine Screen POSITIVE H (Not Detect) U Marijuana (THC) Screen Not Detected (Not Detect) Ethyl Alcohol < 10 mg/dL Critical Care Time Critical Care Time Critical Care Time: Yes Total Critical Care Time: 35 Attestation: I have personally provided critical care time. Time includes review of lab data, radiology results, discussion with consultants, and monitoring for potential decompensation. Intervention performed as documented. Discharge Plan Discharge Clinical Impression: Cocaine abuse, Suicidal ideation, Superficial laceration Patient Disposition: Xfer Psychiatric Hosp Prescriptions: No Action omeprazole 20 mg capsule,delayed release(DR/EC) 20 mg PO DAILY@0800 30 Days Qty: 30 3RF emtricitabine-tenofovir (TDF) [Truvada] 200-300 mg tablet 1 tab PO DAILY@0800 30 Days Qty: 30 2RF spironolactone [Aldactone] 100 mg tablet 100 mg PO BID@0800,2100 30 Days Qty: 60 0RF buprenorphine-naloxone [Suboxone] 8-2 mg film 2 film sublingual DAILY@0800 Qty: 42 0RF Rx Instructions: suboxone 8mg films- 2 films every am estradiol 2 mg tablet 2 mg PO TID Qty: 90 2RF buprenorphine-naloxone [Suboxone] 4-1 mg film 1 film buccal DAILY@0800 Rx Instructions: take in the morning with 16mg dose clonazepam 1 mg tablet 2 mg PO DAILY PRN (Reason: Anxiety) 30 Days Qty: 30 0RF chlorpromazine 100 mg tablet 100 mg PO BEDTIME@2100 prazosin 5 mg capsule 10 mg PO BEDTIME@2100 trazodone 100 mg tablet 200 mg PO BEDTIME@2100 bupropion HCl 300 mg tablet extended release 24 hr 300 mg PO QAM@0800 Rx Instructions: take with 150mg tab bupropion HCl 150 mg tablet extended release 24 hr 150 mg PO QAM@0800 Rx Instructions: take with 300mg tab dextroamphetamine-amphetamine [Adderall XR] 30 mg capsule,extended release 24hr 30 mg PO DAILY (DME) female (internal) condom See Rx Instructions .Route .MEDSUPPLY Qty: 10 2RF Rx Instructions: As directed (DME) condoms - male Misc See Rx Instructions .Route Qty: 10 2RF Rx Instructions: As directed Interventions: [place]-Suicide Risk Severity Scale Last Done: 12/28/24 02:46 Print Language: Unable To Collect
[2024-12-28 02:56] LABS: Amphetamine Screen Urine Not Detected (Not Detect); Barbiturates, Urine Not Detected (Not Detect); Benzodiazepines Screen Urine Not Detected (Not Detect); Buprenorphine Scr Positive (Not Detect); Cannabinoid Screen Urine Not Detected (Not Detect); Cocaine Screen Urine POSITIVE (Not Detect); Fentanyl, urine Not Detected (Not Detect); Methadone Screen, Urine Not Detected (Not Detect); Opiate Screen Urine Not Detected (Not Detect); Oxycodone Screen Urine Not Detected (Not Detect); Phencyclidine Screen Urine Not Detected (Not Detect)
[2024-12-28 03:03] LABS: Acetaminophen LAB < 3 mcg/mL (<30); Salicylate < 5.0 mg/dL (15-30)
--- NOTE | 2024-12-28 03:15 | MHC.EDTECH ---
pt belongings are in shelf 4 after move to main ED
--- NOTE | 2024-12-28 03:15 | PC.NURSE ---
belongings moved to [address]
--- NOTE | 2024-12-28 03:21 | PC.NURSE ---
this rn contacted Shayy from poison control. per Shayy, pt can be medically cleared 4-6 hours after observation. pt continues to be a&o4, respirations even and unlabored. nsr on tele 75-80bpm. pt states she took approx. 12mg of klonapin but reports she may have ingested more.
[2024-12-28 11:14] LABS: Appearance Urine Clear; Color Urine Dark Yellow; Glucose Urine UA Negative (Negative); Leukocyte Esterase Urine Negative (Negative); Nitrite Urine Negative (Negative); Specific Gravity - Urine 1.025 (1.005-1.025); UPreg QC Valid YES; Urine Blood Negative (Negative); Urine Ketones Trace mg/dL (Negative); Urine Pregnancy NEGATIVE (NEGATIVE); Urine Protein Trace mg/dL (Neg-Trace)
--- NOTE | 2024-12-28 12:32 | PC.NURSE ---
ED MD and pharmacy informed on pt. requesting and needing medications.
--- NOTE | 2024-12-28 14:31 | PHA.MEDREC ---
Addendum entered by Miranda Brewer RPh 12/28/24 14:56: reviewed by pharmacist Original Note: Pharmacy Consult ? Medication Reconciliation Pharmacy reviewed med rec done by nursing. Utilized med list from [facility]. Nurse had confirmed Docusate 100mg tabs once daily as needed and left unconfirmed Melatonin and Nicotine that I took off the med rec.
--- NOTE | 2024-12-28 15:40 | PC.NURSE ---
Spoke to Quintin, in pharmacy, was informed that pt. is requesting medication from AM. Was informed that suboxone and other AM meds are to be given in the morning as scheduled.
[2024-12-28] MEDS: estradioL 0.5 MG TABLET 2 MG PO (16:10)
[2024-12-28] MEDS: clonazePAM 1 MG TABLET 2 MG PO (16:10)
--- NOTE | 2024-12-28 17:46 | PC.NURSE ---
Spoke to Praveen in [facility], was informed would be called later today about admission.
--- NOTE | 2024-12-28 17:55 | MHC.CARE ---
Pt accepted to [facility] for [facility] , [address] [place] [address]. Alexy JOHNSON SHERRY or 10:30p at the latest.
== END 2024-12-28 19:42 ==
PROVIDERS: Emergency Provider Emergency Medicine
DX: R45.851 Suicidal ideations (principal); S51.812A Laceration without foreign body of left forearm, initial encounter; F14.10 Cocaine abuse, uncomplicated; F19.90 Other psychoactive substance use, unspecified, uncomplicated; W26.9XXA Contact with unspecified sharp object(s), initial encounter; Y93.9 Activity, unspecified; Y92.9 Unspecified place or not applicable; Y99.8 Other external cause status; F17.210 Nicotine dependence, cigarettes, uncomplicated; Z79.899 Other long term (current) drug therapy; Z51.81 Encounter for therapeutic drug level monitoring
CPT/HCPCS: 36415; 80053; 80143; 80179; 80307; 81003; 81025; 85025; 93005; 99285; S9485

== ENCOUNTER → 2024-12-28 01:45 | Outpatient (BNV) | payer OTHER, SELFPAY | PROVIDERS: Emergency Provider Emergency Medicine; Visit Provider Internal Medicine Cardiovascular Disease | DX: Z13.6 Encounter for screening for cardiovascular disorders (principal) | CPT/HCPCS: 93010 ==

== ENCOUNTER 2025-03-04 16:31 | Outpatient (AMB) | payer OTHER, SELFPAY ==
--- NOTE | 2025-03-10 23:39 | A.OFFVISCC_ITS ---
Intake Visit Reasons: MAT/ per Dr. Michele Allergies No Known Allergies Allergy (Verified 12/28/24 01:24) HPI HPI MAT/ per Dr. Michele: Details: She is doing well Review of Systems Const All systems reviewed & are unremarkable except as noted in HPI and below PFSH Medical History Opioid use disorder, severe, on maintenance therapy Surgical History H/O breast augmentation Social History Household Members: None Household Members Other:: lives in a assisted Housing: Other Housing Other:: Pt was living at a [facility] housing Do you presently have visiting nurse or other home services: No Unable to assess alcohol history related to: Refusing to respond Alcohol intake: never Patient Tobacco Use Status: Current someday Tobacco user Tobacco use type: Cigarette Cigarette Packs Per Day: 0.25 Cigarettes Per Day: 5 Years Smoked: 5 e-Cigarette/Vaping Use: Never Used Second Hand Smoke Exposure: Yes Substance Use Type: Marijuana service: No Current occupational status: disabled Sexual orientation: Don't Know Cognitive needs: No Hearing needs: No Vision needs: No Social History: [facility] for ~ 1year Jul 2023. [facility] and [facility] services. Single. No children. No legal issues. Reports never being able to hold down a job. GED and some college. Trauma history Substance History: Suboxone- attend comprehensive care clinic on a regular basis Trauma History: yes Assessment & Plan Assessment & Plan (1) Opioid use disorder, severe, in sustained remission: Comment: She is doing well Code(s): F11.21 - Opioid dependence, in remission Category: Medical Plan: Continue current plan Medications: New buprenorphine-naloxone 8-2 mg (Suboxone) 1 film sublingual BID 14 ea 0RF 7 days
== END 2025-03-04 16:31 | disposition home or self-care (01) ==
LOC: HO.HCC 16:31
PROVIDERS: Visit Provider Internal Medicine
DX: F11.21 Opioid dependence, in remission (principal)
CPT/HCPCS: 99213

== ENCOUNTER → 2025-03-04 16:31 | Outpatient (BNVA) | payer OTHER, SELFPAY | PROVIDERS: Visit Provider Internal Medicine | DX: F11.21 Opioid dependence, in remission (principal); Z79.899 Other long term (current) drug therapy | CPT/HCPCS: 99212 ==

== ENCOUNTER 2025-03-11 10:04 | Outpatient (REF) | payer OTHER, SELFPAY ==
[2025-03-11 12:25] LABS: Syphilis Screen Nonreactive (Nonreactive)
[2025-03-11 12:26] LABS: HIV AB/AG Nonreactive (Nonreactive); HIV Num 1 0.07 S/CO (0.00-0.99)
[2025-03-13 21:33] LABS: HIV RNA PCR Qn Copies NOT DETECTED copies/mL (NOT DETECTED); HIV RNA PCR Qn Log Copies NOT DETECTED (NOT DETECTED)
== END 2025-03-11 10:05 | disposition home or self-care (01) ==
LOC: HO.LAB 10:04
PROVIDERS: Visit Provider Internal Medicine
DX: F11.21 Opioid dependence, in remission (principal); F32.4 Major depressive disorder, single episode, in partial remission
CPT/HCPCS: 36415; 86780; 87389; 87536; 99212

== ENCOUNTER 2025-03-11 10:04 | Outpatient (AMB) | payer OTHER, SELFPAY ==
--- NOTE | 2025-03-11 14:50 | MHC.AM.SUB ---
Intake Visit Reasons: MAT visit 1 week Allergies No Known Allergies Allergy (Verified 12/28/24 01:24) HPI HPI MAT visit 1 week: Details: She has been doing well with current Suboxone dosing. She has no complaints Review of Systems Const All systems reviewed & are unremarkable except as noted in HPI and below Physical Exam Const General: cooperative [facility] Medical History Opioid use disorder, severe, on maintenance therapy Surgical History H/O breast augmentation Social History Household Members: None Household Members Other:: [facility] [place] [facility] Housing: Other Housing Other:: Pt was living at a [facility] housing Do you presently have visiting nurse or other home services: No Unable to assess alcohol history related to: Refusing to respond Alcohol intake: never Patient Tobacco Use Status: Current someday Tobacco user Tobacco use type: Cigarette Cigarette Packs Per Day: 0.25 Cigarettes Per Day: 5 Years Smoked: 5 e-Cigarette/Vaping Use: Never Used Second Hand Smoke Exposure: Yes Substance Use Type: Marijuana service: No Current occupational status: disabled Sexual orientation: Don't Know Cognitive needs: No Hearing needs: No Vision needs: No Social History: [facility] for ~ 1year Jul 2023. [facility] and [facility] services. Single. No children. No legal issues. Reports never being able to hold down a job. GED and some college. Trauma history Substance History: Suboxone- attend comprehensive care clinic on a regular basis Trauma History: yes Assessment & Plan Assessment & Plan (1) Major depression in partial remission: Comment: She is doing better with depression Code(s): F32.4 - Major depressive disorder, single episode, in partial remission Category: Medical Plan: Would continue Suboxone Would give Apretude for prevention HIV and check viral load and HIV. See as scheduled. (2) Opioid use disorder, severe, in sustained remission: Comment: She is doing well Code(s): F11.21 - Opioid dependence, in remission Category: Medical Plan: n/a Orders: Orders HIV Ab/Ag Today .21 - Opioid dependence, in remission HIV-1 RNA QN PCR Expanded Today F11.21 - Opioid dependence, in remission Syphilis Screen Today F11.21 - Opioid dependence, in remission Medications: New cabotegravir ER (Apretude) 600 mg (3 mL) IM [id number] 60 days 3 mL 5RF cabotegravir ER (Apretude) 600 mg (3 mL) IM [id number] 60 days 3 mL 5RF buprenorphine-naloxone 8-2 mg (Suboxone) 1 film sublingual TID 90 ea 2RF 30 days cabotegravir ER (Apretude) 600 mg (3 mL) IM [id number] 60 days 3 mL 5RF emtricitabine-tenofovir (TDF) 200-300 mg (Truvada) 1 tab PO DAILY 30 tabs 2RF 30 days cabotegravir ER (Apretude) 600 mg (3 mL) IM [id number] 60 days 3 mL 5RF cabotegravir ER (Apretude) 600 mg (3 mL) IM [id number] 3 mL 5RF 60 days
== END 2025-03-11 10:46 | disposition home or self-care (01) ==
LOC: HO.HCC 10:04
PROVIDERS: Visit Provider Internal Medicine
DX: F32.4 Major depressive disorder, single episode, in partial remission (principal); F11.21 Opioid dependence, in remission
CPT/HCPCS: 99213